=== PATIENT | female | born 1935 | race Caucasian/White ===

== ENCOUNTER 2016-12-26 02:29 | Inpatient (IN) | payer MEDICARE ==
[2016-12-26 02:56] LABS: #Lymphocytes 1.4 thou/uL (1.20-3.40); #Monocytes 0.8 thou/uL (0.11-0.59); #Neutrophils 4.6 thou/uL (1.40-6.50); %Basophils 0.4 % (0.0-1.0); %Eosinophils 0.4 % (0.0-10.0); %Lymphocytes 19.9 % (21.0-51.0); Hematocrit 39.9 % (36.0-47.0); Mean Platelet Volume 8.6 fL (7.4-10.4); Red Blood Cell (RBC) Count 4.09 mill/uL (4.20-5.40); White Blood Cell (WBC) Count 6.8 thou/uL (4.8-10.8)
[2016-12-26 03:11] LABS: ALT (SGPT) 10 U/L (8-55); AST (SGOT) 17 U/L (5-34); Alkaline Phosphatase 69 U/L (40-150); Anion Gap 12 mmol/L (10-20); BUN (Urea Nitrogen) 17 mg/dL (9.8-20.1); CK (CPK) 62 U/L (29-168); Calc. Creatinine Clearance 0 mL/min (70-130); Calcium 9.5 mg/dL (7.8-10.44); Carbon Dioxide 28 mmol/L (23-31); Chloride 92 mmol/L (98-107); Estimated GFR-MDRD 58; Globulin 4.1 g/dL (2.4-3.5); Lipase 13 U/L (8-78); Protein, Total 7.8 g/dL (6.0-8.3)
[2016-12-26 03:14] LABS: Troponin I 0.052 ng/mL (< 0.028)
[2016-12-26 03:15] LABS: PTT 28.3 SEC (22.9-36.1); Prothrombin Time 13.8 SEC (12.0-14.7)
[2016-12-26 05:11] VITALS: BMI 25.4
[2016-12-26 06:34] LABS: Troponin I 0.855 ng/mL (< 0.028)
[2016-12-26] MEDS ORDERED: Nitroglycerin 0.4 MG TAB (25 Tab Bottle) SL PRN (07:31)
[2016-12-26] MEDS ORDERED: Furosemide 20 MG TAB PO PRN (07:31)
[2016-12-26] MEDS ORDERED: Acetaminophen 325 MG TAB PO PRN (07:31)
[2016-12-26] MEDS ORDERED: Dextrose 50% Abboject 50 ML SYRINGE SLOW IVP PRN (07:34)
[2016-12-26] MEDS ORDERED: Dextrose 5% in Water 1,000 ML IV PRN (07:34)
[2016-12-26] MEDS: Calcium Carbonate + Vit D 1 TAB PO SCH ×2 (08:57→20:52)
[2016-12-26] MEDS: Ferrous Sulfate 325 MG TAB PO SCH ×2 (08:57→17:02)
[2016-12-26] MEDS: Carvedilol 25 MG TAB PO SCH ×3 (08:57→21:05)
[2016-12-26] MEDS: Oxybutynin Chloride 5 MG TAB PO SCH ×2 (08:58→20:54)
[2016-12-26] MEDS: Ezetimibe 10 MG TAB PO SCH (08:58)
--- NOTE | 2016-12-26 09:27 | RAD ---
CHEST 1 VIEW: HISTORY: Chest pain. COMPARISON: 07/15/16. FINDINGS: Cardiac silhouette is magnified and upper limits of normal in size. Lungs remain hyperinflated with chronic interstitial thickening. Mediastinum is midline with postoperative changes and a multilead left subclavian cardiac electronic device. No lobar consolidation or pneumothorax are apparent. C ardiac monitor leads overlie the chest. IMPRESSION: Chronic obstructive pulmonary disease and other chronic-type findings are stable. POS: [facility]
[2016-12-26 09:37] LABS: Troponin I 1.376 ng/mL (< 0.028)
[2016-12-26 10:00] LABS: Hemoglobin A1c 7.2 % (4.0-6.0)
--- NOTE | 2016-12-26 10:10 | HP ---
DATE OF ADMISSION: 12/26/2016 PRIMARY CARE PHYSICIAN: Dr. Neri Matthews. CHIEF COMPLAINT: Chest pain. HISTORY OF PRESENT ILLNESS: This is an 81-year-old female with past medical history of co ronary artery disease with coronary artery bypass surgeries and type 1 diabetes, who presents with c hest pain starting last night, located substernal and radiating to the left chest and arm. She daly es dizziness, nausea, and excessive sweating. She takes Plavix at home. She also reports that her glucose over the past several days has been measuring 200s up to 300. It is normally low 100s; pa beth. She takes Humulin 70/30 b.i.d. So far her troponins have increased from 0.052-0.855 which is positive. This morning, she denies chest pain and reports feeling better. ALLERGIES: No known drug allergies. MEDICATIONS: 1. Oxybutynin 5 mg p.o. b.i.d. 2. Plavix 75 mg p.o. daily. 3. Ranexa 500 mg p.o. daily. 4. Carvedilol 12.5 mg p.o. b.i.d. 5. Zetia 10 mg p.o. daily. 6. Lisinopril 5 mg, take 1/2 tablet p.o. daily. 7. Pravastatin 80 mg p.o. daily. 8. Isosorbide dinitrate 30 mg p.o. daily. 9. Humalog 75/25, take 6 units in the morning and 10 units in the evening. 10. Furosemide 20 mg p.o. daily. 11. Nitroglycerin 0.4 mg tablet sublingual p.r.n. chest pain. 12. Iron 325 mg p.o. daily. 13. Pantoprazole 40 mg p.o. daily. 14. Montelukast 10 mg p.o. at bedtime. PAST MEDICAL HISTORY: 1. Coronary artery disease status post CABG. 2. Type 1 diabetes. 3. Urinary incontinence. 4. GERD. PAST SURGICAL HISTORY: 1. CABG x2. 2. Cholecystectomy. 3. Back surgery. 4. Defibrillator placement. SOCIAL HISTORY: Denies tobacco, alcohol and drugs. FAMILY HISTORY: Heart disease, hypertension, and diabetes. REVIEW OF SYSTEMS: GENERAL: Denies fever, weight change, appetite change. HEENT: Denies headache , vision changes, sore throat, or dysphagia. SKIN: Denies rashes or lesions. CARDIOVASCULAR: Gill st pain, improved. Denies palpitations. RESPIRATORY: Denies shortness of breath and cough. GASTR OINTESTINAL: Denies nausea, vomiting, diarrhea, constipation, and abdominal pain. GENITOURINARY: Denies dysuria, hematuria, and discharge. MUSCULOSKELETAL: Denies joint pain and stiffness. NEURO LOGIC: Denies syncope and dizziness. PHYSICAL EXAMINATION: VITAL SIGNS: Temperature 98.0, pulse 72, respirations 18, oxygen saturation 95% on room air, and bl ood pressure 129/59. GENERAL: Alert and oriented x3 with no acute distress. SKIN: No rashes or lesions. HEENT: Normocephalic. Pupils are equally round and reactive to light. Extraocular muscles intact. HEART: Regular rate and rhythm, no murmurs. LUNGS: Clear to auscultation bilaterally. No wheezes. ABDOMEN: Nontender and nondistended. Bowel sounds heard throughout. MUSCULOSKELETAL: Normal strength and range of motion. NEUROLOGIC: Cranial nerves II-XII intact. Sensation normal. LABORATORY DATA AND X-RAY FINDINGS: 1. White blood cell count 6.8, hemoglobin 13.6, hematocrit 39.9, MCV 97.6, and platelets 146. 2. PT 13.8, INR 1.1, PTT 28.3. 3. Sodium 127, potassium 4.6, chloride 92, carbon dioxide 28, BUN 17, creatinine 0.92, glucose 245, calcium 9.5, total bilirubin 1.0. AST 17, ALT 10, alkaline phosphatase 69. Creatine kinase 62, CK -MB 2.3, troponin 0.052, 0.855, total protein 7.8, albumin 3.7, lipase 13. 3. Chest x-ray shows enlarged heart, sternotomy wires, defibrillator. No acute process. ASSESSMENT AND PLAN: 1. Chest pain with positive troponins. Consult Cardiology for evaluation. The patient has receive d aspirin. She received a dose of Plavix last night. She has no current chest pain. EKG showed a normal paced rhythm with a rate of 79. There is a [address] elevation in V3. 2. Type 1 diabetes. Glucose has been uncontrolled recently. We will continue her home dose of Hum alog 75/25 and initiate hyperglycemia protocol with Accu-Cheks and sliding scale insulin. 3. Urinary incontinence. Continue oxybutynin. 4. Gastroesophageal reflux disease. Continue pantoprazole.
[2016-12-26 13:09] LABS: Troponin I 1.734 ng/mL (< 0.028)
[2016-12-26] MEDS: Insulin NPH/Reg Insulin Hm 300 UNITS/3 ML VIAL SC SCH ×2 (13:12→20:53)
--- NOTE | 2016-12-26 15:15 | CON ---
CARDIOLOGY CONSULTATION DATE OF CONSULTATION: 12/26/2016 LOCATION: Room #235 PRIMARY CARE PHYSICIAN: Neri Matthews M.D. PRIMARY LIGHT ARMORED VEHICLE OFFICER: Keyonna Kevin M.D. REASON FOR CARDIOLOGY CONSULTATION: Chest pain, positive troponin level and history of CABG twice. HISTORY OF PRESENT ILLNESS: Ms. Gomez is a very pleasant 81-year-old female with a significant history of severe CAD with history of coronary artery bypass graft twice, previous positive troponin level and last cardiac catheterization in 2013, which were inoperable and medical treatment only, and chronic systolic heart failure with defibrillator placement. On 12/25, whole day, she was very tired, fatigue, and doze off every time when she was sitting on the chair or bed. Last night, she was started having pain in the precordial area, which was very similar when she has myocardial infarction. It was coming and going, but the patient reported that pain was increased when she was walking. In the middle of the night, she administrated 1 tablet of nitroglycerin. Her symptoms was improved. However, she still could feel some discomfort in her chest. Because of that reason, the patient's daughter called the EMS and the patient was transferred to [facility] Emergency Department for further cardiac study and treatment. At this time, the patient denies any chest pain, shortness of breath, dizziness, lightheadedness, nausea, numbness in the left extremity or any other cardiac symptoms. She went to bathroom today without any cardiac complaints. During the episode of chest pain last night, she denies any shortness of breath, dizziness, lightheadedness , diaphoresis, nausea, or any other complaints. She was in the hospital in 2016 with the same diagnosis of chest pain with unstable angina and positive troponin. The patient was discharged the next day with medical treatment. She underwent cardiac catheterization in 2013, which revealed severe three- vessel disease with ejection fraction of 35% and the medical treatment only due to the history of bypass twice. The patient's last echocardiogram was in 2014 with EF of 35% to 40%, akinesis of distal inferior wall and distal septum, mild mitral and tricuspid insufficiency and mild enlarged left atrium. She had a history of coronary artery bypass graft in 2007 and 2009. She has an AICD placement due to severe, chronic systolic heart failure. PAST MEDICAL HISTORY: 1. Coronary artery disease with several history of CABG. 2. Hypertension. 3. Hyperlipidemia. 4. GERD. 5. Diabetes type 2. 6. History of pulmonary embolism. 7. Ischemic colitis. 8. AICD placement. PAST SURGICAL HISTORY: 1. CABG in 2008 and 2009. 2. Right femoral fracture repair in 2015. 3. Cholecystectomy. FAMILY HISTORY: Significant history of diabetes in both maternal and paternal side and she has 4 children who all had history of diabetes. SOCIAL HISTORY: She is a . She has 4 children who have history of diabetes. She denies tobacco abuse, alcohol abuse or illicit drug abuse. REVIEW OF SYSTEMS: The following complete review of systems was negative, unless otherwise mentioned in the HPI or below. Constitutional: Weight loss or gain, sense of well being, ability to conduct usual activities, exercise tolerance. Skin: Rash, itching, change in hair growth or loss, nail change. Breasts: Lump tenderness, swelling, nipple discharge. Eyes: She wears glasses for reading, negative to vision change, double vision, tearing, blind spots, or pain. ENT: Headache, fatigue, or lightheadedness. Nose bleeding, nasal obstruction or discharge. She wears denture. Negative to gingival bleeding, neck stiffness, pain, tenderness, and mass in thyroid or other areas. Cardiovascular: Palpitations, syncope, dyspnea on exertion, orthopnea, nocturnal dyspnea, edema, cyanosis, heart murmur, varicosis, claudication. Respiratory: Shortness of breath, wheezing, stridor, cough, hemoptysis. Gastrointestinal: Poor appetite, dysphagia, indigestion, abdominal pain, heartburn, nausea, vomiting, jaundice, constipation, diarrhea, abnormal stool, recent change in the bowel habit. Genitourinary: Urgency, frequency, dysuria, nocturia, hematuria, polyuria, or oliguria. She wears pads for leakage. Musculoskeletal: Pain, swelling, redness, heat of muscle or joint, limitation of motion, muscular weakness, atrophy or cramps. Neurologic: Seizure, convulsion, paralysis, tremor, or incoordination. Psychiatric: Emotional problem, anxiety, depression, previous psychiatric care, unusual perception or hallucination. PHYSICAL EXAMINATION: VITAL SIGNS: Blood pressure 118/58, heart rate 70 with sinus rhythm, respiratory rate 16, temperature 98.5, O2 sat 95% with room air. GENERAL: Well-developed, well-nourished without any acute distress. HEENT: Head: Normocephalic, atraumatic. Eyes: Wears glasses. Extraocular muscle movements are intact. ENT: Oral and nasal mucosa are moist without lesion. NECK: No JVD. Neck is supple and normal range of motion. LUNGS: Clear to auscultation bilaterally. No wheezing, rales or rhonchi noted. CARDIOVASCULAR: Regular rate and rhythm, normal S1, S2. There are no S3 or S4. No significant murmur, hives, thrill, bruit or rub noted. There are 2+ pulses in bilateral dorsal pedis, posterior tibial and popliteal arteries. There is mild bruit on the right carotid arteries, but not in left side. No edema in her bilateral lower extremities. ABDOMEN: Soft and nontender or mass to palpate, nondistended. Bowel sounds are present. MUSCULOSKELETAL: Able to move all extremities without any difficulties. SKIN: Warm and dry. No skin rash, lesion or bruise noted. NEUROLOGIC: Alert, oriented x4, awake, normal affect and nonfocal. PSYCHIATRIC: Mood and affect are normal. EKG: A 12-lead EKG in the ER shows sinus rhythm, intermittent pacing with heart rate of [address] segment change. LABORATORY DATA: WBC 6.8, hemoglobin 13.6, hematocrit 39.9, platelet 146. INR is 1.1. Sodium 127, potassium 4.6, BUN 17, creatinine 0.92, glucose 352. Hemoglobin A1c was 7.2, AST 17, ALT 10, CK-MB 3.3. Troponin 0.052, 0.855 and 1.376, we are waiting for another troponin level at this moment. Chest x-ray revealed chronic obstructive pulmonary disease, but no acute coronary or pulmonary abnormality. ASSESSMENT AND PLAN: 1. Unstable angina with positive troponin. The patient denies any cardiac complaint at this moment, the history of coronary artery bypass graft twice, and the catheterization result in 2013, there are no plan to have further cardiac studies a this moment and continue medical treatment. 2. Hyponatremia. The patient's sodium level today was 127. We like to start fluid restriction for this patient and we would like to continue to monitor with daily sodium level check. 3. Hypertension, stable at this moment with the current medication. 4. Chronic systolic heart failure with automatic implantable cardioverter- defibrillator placement. The patient's condition is stable with current medication. We like to continue Lasix 20 mg p.o. daily as needed. 5. Diabetes type 2. She is on before meals and at bedtime blood glucose check with sliding scale insulin ordered, which is managed by primary care doctor. 6. Hyperlipidemia. The patient is on pravastatin 20 mg once a day. 7. Esophageal reflux. She is on Plavix 40 mg once a day. Thank you very much for allowing Cardiology Service to participate in care of the patient. We will follow along with the patient's care team and make further recommendations as appropriate. TOYA
[2016-12-26] MEDS: HumaLOG 300 UNITS/3 ML VIAL SC PRN (17:16)
[2016-12-26] MEDS: Atorvastatin Calcium 20 MG TAB PO SCH (20:52)
[2016-12-26] MEDS: Clopidogrel Bisulfate 75 MG TAB PO SCH (20:53)
[2016-12-26] MEDS: Montelukast Sodium 10 mg Tablet PO SCH (20:54)
[2016-12-26] MEDS: Lisinopril 2.5 MG TAB PO SCH (20:54)
--- NOTE | 2016-12-27 01:20 | CON ---
ADDENDUM DATE OF ADMISSION: 12/26/2016 DATE OF CONSULTATION: 12/26/2016 INDICATION FOR CONSULTATION: An 81-year-old female with chest pain and known coronary artery diseas e who is status post bypass surgery and also she has cardiomyopathy, has undergone AICD implant. Dez cuadra has a history also of congestive heart failure. She was in the hospital back in June with very s imilar symptoms of chest pain except for a non-ST segment elevation myocardial infarction. She has been deemed in the past not to be a candidate for further intervention or redo bypass surgery. She was at home yesterday when she noted she started having some chest discomfort. Yesterday evening, s he felt like this was her typical chest pain or angina and then she presented to the emergency room and was admitted. Her enzymes are positive for non-ST segment elevation myocardial infarction. At this time, she is pain free. Her symptoms have resolved and she is feeling much better. Her last c ardiac catheterization, I believe it was in 2009, at which time she had a patent saphenous vein ricky t to the obtuse marginal branch of left circumflex to the right coronary artery and she had a PICKARD t o the, I believe, left anterior descending artery. She states at that time was noted to have diffus e disease. She has had an echocardiogram in the office, the last one I see was from 2014 with an ej ection fraction of 35% to 40%. She has had no problems with the AICD. She has had no discharges an d appears it was found to be stable. I reviewed her medications. She is not taking aspirin. She s aid she did in the past and occasionally takes an aspirin. We will place her back on her aspirin. Also she is taking Ranexa 500 mg once a day. We will try to increase it up to twice a day. She did state that she had been on Coreg in the past and when the dose was increased, she became hypotensiv e and was unable to take a larger dose of what she is presently on. She has a significant history a lso for other problems associated with her coronary artery disease. Her EKG showed atrial pacing an d ventricular sensing. She did have some T-wave inversions with a strain-type pattern, but this cer tainly could indicate also ischemia inferior lateral changes. She has evidence of a possible old in ferior myocardial infarction. At this time, she is stable as noted and we will try to continue to a djust her medications. For her past medical history, social history, review of systems as well as physical examination, ple ase refer to the notes dictated by the nurse practitioner. I have agreed with her assessment and pl an and we have discussed the patient. From my perspective; PHYSICAL EXAMINATION: GENERAL: This is an elderly, fragile, very pleasant female that I have known from the past by flores harris of her . VITAL SIGNS: Relatively stable at this time. Blood pressure is 119/56. She is afebrile. Heart ra te is 70 and shows a paced rhythm. Respiratory rate is 16. HEENT: Shows the head to be normocephalic and atraumatic. Carotid pulses are present. CHEST: Clear to auscultation without rales, rhonchi or wheezing. CARDIOVASCULAR: Exam reveals a regular rate and rhythm. She has a soft systolic murmur at the uppe r sternal border and also at the apex. She has a well-healed surgical incision over her AICD in the left infraclavicular area. ABDOMEN: Unremarkable. EXTREMITIES: Showed no clubbing, cyanosis or edema. Pedal pulses are decreased. NEUROLOGIC: She appears to be fully intact for someone of her age. IMPRESSION: As above. This is an elderly female with a severe three-vessel coronary artery disease . She is not a candidate for further intervention or surgical procedures. I would continue to zenon t her medically. We would just need to adjust her medications. For the other assessment and plan, please refer to the notes already dictated. I would agree with this.
[2016-12-27] MEDS: Ferrous Sulfate 325 MG TAB PO SCH ×2 (08:30→18:25)
[2016-12-27] MEDS: Carvedilol 25 MG TAB PO SCH ×2 (08:31→20:07)
[2016-12-27] MEDS: Calcium Carbonate + Vit D 1 TAB PO SCH ×2 (08:31→21:06)
[2016-12-27] MEDS: Oxybutynin Chloride 5 MG TAB PO SCH ×2 (08:31→21:08)
[2016-12-27] MEDS: Ezetimibe 10 MG TAB PO SCH (08:31)
[2016-12-27] MEDS: Insulin NPH/Reg Insulin Hm 300 UNITS/3 ML VIAL SC SCH ×2 (08:32→21:07)
--- NOTE | 2016-12-27 13:10 | PRG ---
DATE OF SERVICE: 12/27/2016 Ms. Gomez is awake and alert. She has had no further chest pain. She states she is feeling back t o her normal state. PHYSICAL EXAMINATION: VITAL SIGNS: BP 133/63, temperature 98.3. LUNGS: Clear. HEART: Reveals no murmur. ABDOMEN: Soft, nontender, bowel sounds are active. No hepatosplenomegaly is noted. LABORATORY DATA: Her last troponin was still elevated at 1.734. IMPRESSION: Atherosclerotic coronary artery disease with elevated troponin, probably has suffered a small myocardial infarction. Her atherosclerotic coronary disease is basically inoperable and nonp rocedural. PLAN: 1. The patient will continue on current medications. 2. Await input from Cardiology. 3. She says she is comfortable and doing well. She possibly could go home by tomorrow.
[2016-12-27] MEDS: HumaLOG 300 UNITS/3 ML VIAL SC PRN (13:31)
--- NOTE | 2016-12-27 13:37 | PRG ---
DATE OF SERVICE: 12/27/2016 Ms. Gomez is doing well today, awake and alert. No complaints. She says she is not having any chest pain or pressure. PHYSICAL EXAMINATION: VITAL SIGNS: Blood pressure 133/63, pulse 80, it is regular. LUNGS: Clear. CARDIAC: Normal S1, S2. ASSESSMENT: 1. Status post non-ST elevation myocardial infarction. 2. Previous pacemaker, atrial paced ventricular sensed. 3. Coronary artery disease. No further intervention indicated or appropriate. PLAN: Continue current medical regimen, likely discharge home tomorrow.
[2016-12-27] MEDS: Clopidogrel Bisulfate 75 MG TAB PO SCH (21:06)
[2016-12-27] MEDS: Atorvastatin Calcium 20 MG TAB PO SCH (21:06)
[2016-12-27] MEDS: Lisinopril 2.5 MG TAB PO SCH (21:08)
[2016-12-27] MEDS: Montelukast Sodium 10 mg Tablet PO SCH (21:08)
[2016-12-27] MEDS ORDERED: Nitroglycerin 0.4 MG TAB (25 Tab Bottle) ONE (22:20)
[2016-12-28 07:56] VITALS: TEMP 98
[2016-12-28] MEDS: Insulin NPH/Reg Insulin Hm 300 UNITS/3 ML VIAL SC SCH (07:56)
--- NOTE | 2016-12-28 08:06 | PRG ---
DATE OF SERVICE: 12/28/2016 Ms. Gomez is feeling well. She reports no chest pain, shortness of breath, no symptoms at this kacy e. PHYSICAL EXAMINATION: VITAL SIGNS: BP 146/69, temperature 98.7, O2 sats 96%. LUNGS: Clear. HEART: Reveals no murmur. Regular rate and rhythm. ABDOMEN: Soft, nontender, bowel sounds are active. LABORATORY: Her blood sugars are adequately controlled. IMPRESSION: 1. Non-ST segment myocardial infarction. 2. Previous history of atherosclerotic coronary artery disease. 3. Previous history of type 1 diabetes mellitus. PLAN: The patient has been stable for 36 hours since her admission to the hospital. There is no in tervention planned for Cardiology. She will be discharged home on her current medications. Follow up with me in approximately 3-4 weeks.
[2016-12-28] MEDS: Calcium Carbonate + Vit D 1 TAB PO SCH (08:11)
[2016-12-28] MEDS: Ezetimibe 10 MG TAB PO SCH (08:11)
[2016-12-28] MEDS: Oxybutynin Chloride 5 MG TAB PO SCH (08:11)
[2016-12-28] MEDS: Ferrous Sulfate 325 MG TAB PO SCH (08:12)
[2016-12-28] MEDS: Carvedilol 25 MG TAB PO SCH (08:14)
--- NOTE | 2016-12-28 08:39 | DIS ---
DATE OF ADMISSION: 12/26/2016 DATE OF DISCHARGE: 12/28/2016 DISCHARGE DIAGNOSES: 1. Non-ST segment myocardial infarction. 2. History of atherosclerotic coronary artery disease. 3. History of type 1 diabetes mellitus. ADMITTING PHYSICIAN: Dr. Neri Matthews. CONSULTING PHYSICIAN: Dr. Kevin. HOSPITAL SUMMARY: This is an 81-year-old female, who presented to the emergency room complaining of chest pain. She was found to have mildly elevated troponins consistent with non-ST segment SD. [facility] was placed in the hospital. She has had a previous history of atherosclerotic coronary artery dis ease that is inoperable/nonprocedural. She was followed throughout her hospital, remained comfortab le. All of her chest pain eventually resolved by 12/28/2016. She was doing well with no provoked c hest pain. It was thought she could be discharged home on her home medicines; there is no change in her home medicines. HOME MEDICATIONS: Home medicines were acetaminophen every 6 hours, calcium 1 b.i.d., nitroglycerin spray, insulin 6 units q.a.m. and 2 units q.p.m., Lasix 20 mg daily, pravastatin 80 mg at bedtime, P rotonix 40 mg daily, Zestril 2.5 mg at bedtime, Ranexa 500 mg p.o. q.p.m., montelukast 10 mg daily, Plavix 75 mg daily, oxybutynin 5 mg b.i.d., isosorbide 30 mg p.o. daily, ferrous sulfate 325 b.i.d., carvedilol 12.5 mg b.i.d., Zetia 10 mg daily, aspirin 81 mg daily, one multivitamin daily. DISCHARGE PLAN: She will see me in follow up in approximately four weeks.
--- NOTE | 2016-12-28 09:29 | PRG ---
DATE OF SERVICE: 12/28/2016 SUBJECTIVE: Ms. Gomez feels well. No chest pain or pressure. Overall, feels well. OBJECTIVE: VITAL SIGNS: Blood pressure 154/69 and pulse 70. LUNGS: Clear. CARDIAC: Normal S1 and S2. ABDOMEN: Soft, nontender. EXTREMITIES: There is no edema. PERTINENT LABORATORY: Her sodium is 127. ASSESSMENT: 1. Status post non-ST elevation myocardial infarction. 2. History of hyponatremia, only taken diuretics if needed, not on a routine basis. PLAN: She is to go home on the same medicine she came in on. Take Lasix only if needed for swellin g.
[2016-12-28 15:47] VITALS: BP 146/70
== END 2016-12-28 11:59 | disposition home or self-care (01) | DRG 281 ==
LOC: ERS 02:29 → OBSVTOIN 03:00 → 2SW 03:00 → 2NO 14:52
PROVIDERS: ADMIT Family Medicine; ATTEND Family Medicine
DX: I21.4 Non-ST elevation (NSTEMI) myocardial infarction (principal); E87.1 Hypo-osmolality and hyponatremia; I11.0 Hypertensive heart disease with heart failure; I50.22 Chronic systolic (congestive) heart failure; E10.9 Type 1 diabetes mellitus without complications; Z95.1 Presence of aortocoronary bypass graft; Z95.0 Presence of cardiac pacemaker; I25.10 Atherosclerotic heart disease of native coronary artery without angina pectoris; E78.5 Hyperlipidemia, unspecified; K21.9 Gastro-esophageal reflux disease without esophagitis; Z86.711 Personal history of pulmonary embolism
CPT/HCPCS: 36415; 36416; 71010; 80053; 82553; 83036; 83690; 84484; 85025; 85610; 85730; 86850; 86900; 86901; 93005; 93798; 94760

== ENCOUNTER 2017-01-14 20:51 | Observation (INO) | payer MEDICARE ==
[~2017-01-14 20:51] MED LIST: ISOVUE-370 76%-LOCM 1 ML ONE
[2017-01-14 22:42] LABS: #Basophils 0.1 thou/uL (0.0-0.2); #Eosinphils 0.1 thou/uL (0.0-0.7); #Lymphocytes 1.3 thou/uL (1.20-3.40); #Monocytes 0.6 thou/uL (0.11-0.59); #Neutrophils 3.4 thou/uL (1.40-6.50); %Eosinophils 1.5 % (0.0-10.0); %Lymphocytes 23.6 % (21.0-51.0); %Monocytes 11.3 % (0.0-10.0); Hematocrit 37.5 % (36.0-47.0); Mean Platelet Volume 8.5 fL (7.4-10.4); Red Blood Cell (RBC) Count 3.87 mill/uL (4.20-5.40); White Blood Cell (WBC) Count 5.4 thou/uL (4.8-10.8)
--- NOTE | 2017-01-14 22:48 | RAD ---
UPRIGHT PORTABLE CHEST ONE VIEW 01/14/17 HISTORY: 81-year-old female with chest pain. COMPARISON: 12/26/16 FINDINGS: Postop midline sternotomy. Left ICD. Monitor leads overlie the chest. Bilateral vascular congestion and interstitial changes evidence for interstitial edema with small pleural effusions. Appearance is stable from the 12/26/16 study. These changes are however, new when compared to a 12/28/15 study. No confluent pneumonia. IMPRESSION: Linear and interstitial changes bilaterally with vascular congestion and small pleural effusion, lorraine dence for minimal interstitial edema and possibly minimal congestive heart failure. Depending upon c oncern, continued short term followup for clearing or stability. POS: [facility]
[2017-01-14 23:00] LABS: ALT (SGPT) 13 U/L (8-55); AST (SGOT) 15 U/L (5-34); Alkaline Phosphatase 78 U/L (40-150); Anion Gap 12 mmol/L (10-20); BUN (Urea Nitrogen) 19 mg/dL (9.8-20.1); Bilirubin, Total 0.4 mg/dL (0.2-1.2); Calc. Creatinine Clearance 0 mL/min (70-130); Calcium 8.6 mg/dL (7.8-10.44); Carbon Dioxide 24 mmol/L (23-31); Chloride 100 mmol/L (98-107); Estimated GFR-MDRD 60; Globulin 3.5 g/dL (2.4-3.5); Protein, Total 6.7 g/dL (6.0-8.3)
[2017-01-14 23:04] LABS: Troponin I 0.081 ng/mL (< 0.028)
[2017-01-15] MEDS ORDERED: Nitroglycerin 2% Ointment 1 INCH/1 GM Packet ONE (00:25)
[2017-01-15 01:15] LABS: Troponin I 0.124 ng/mL (< 0.028)
[2017-01-15] MEDS ORDERED: Ondansetron HCl/PF 4 MG/2 ML Vial IVP PRN (04:12)
[2017-01-15] MEDS ORDERED: Ondansetron ODT 4 MG TAB SL PRN (04:12)
[2017-01-15] MEDS ORDERED: Acetaminophen 325 MG TAB PO PRN ×2 (04:12→10:00)
[2017-01-15 05:12] VITALS: BMI 25.0
[2017-01-15 05:36] LABS: Troponin I 0.204 ng/mL (< 0.028)
[2017-01-15] MEDS ORDERED: Nitroglycerin 2% Ointment 1 INCH/1 GM Packet TOP SCH (06:00)
--- NOTE | 2017-01-15 08:14 | CT ---
PRELIMINARY REPORT/[facility]/EMERGENCY AFTER HOURS PROCEDURE: EXAM: CT Angiography Chest With Intravenous Contrast CLINICAL HISTORY: Left sided chest pain. TECHNIQUE: Axial computed tomographic angiography images of the chest with intravenous contrast using pulmonary embolism protocol. All CT scans at this facility use one or more dose reduction techniques, viz.: a utomated exposure control; ma/kV adjustment per patient size (including targeted exams where dose is matched to indication; i.e. head); or iterative reconstruction technique. CONTRAST: 96 mL of [id number] administered intravenously. COMPARISON: No relevant prior studies available. FINDINGS: Pulmonary arteries: No acute findings. No pulmonary embolism. Aorta: There are atheromatous calcifications of the aorta without visible aneurysm. Lungs: Extensive, bilateral ground glass air space opacities. Pleural space: Trace bilateral effusions. Nonspecific nodular high density pleural foci anteriorly o n the right. No pneumothorax. Heart: No cardiomegaly. No significant pericardial effusion. There are atheromatous calcifications o f the aorta and coronary vasculature. Bones/joints: Chronic degenerative spinal changes without acute fracture or dislocation. There are m edian sternotomy changes. Soft tissues: No acute findings. Lymph nodes: No acute findings. No enlarged lymph nodes. Upper abdomen: IVC filter noted. IMPRESSION: No pulmonary embolism. Extensive, bilateral ground glass air space opacities consistent with infiltrates vs edema. Cardiomegaly and atheromatous disease. Pleural effusions. Thank you for allowing us to participate in the care of your patient. Dictated and Authenticated by: Jose Islas MD 01/15/2017 12:35 AM Central Time ([place] \T\ [place]) FINAL REPORT CT ANGIOGRAM OF CHEST: Date: 01/14/17 HISTORY: Previous pulmonary artery emboli. Left-sided chest pain. COMPARISON: 04/16/10. TECHNIQUE: CT angiogram of the chest is performed in the axial plane. Coronal and sagittal three-dimensional re formatted images are submitted for interpretation. FINDINGS/IMPRESSION: This report is in agreement with the preliminary report by Har[facility]. No evidence of pulmonary artery emb olism to the level of the segmental arteries. There are extensive bilateral ground-glass opacities w hich may be due to edema or infiltrate. Bilateral pleural effusions are noted. Atherosclerotic disea se is identified. Stable pleural based opacity in the anterior right hemithorax. POS: [facility]
[2017-01-15] MEDS ORDERED: Furosemide 20 MG TAB PO PRN (10:00)
[2017-01-15] MEDS ORDERED: Nitroglycerin 0.4 MG TAB (25 Tab Bottle) SL PRN (10:00)
[2017-01-15] MEDS ORDERED: Dextrose 5% in Water 1,000 ML IV PRN (10:01)
[2017-01-15] MEDS ORDERED: Insulin Regular 300 UNITS/3 ML VIAL SC PRN (10:01)
[2017-01-15] MEDS ORDERED: Dextrose 50% Abboject 50 ML SYRINGE SLOW IVP PRN (10:01)
--- NOTE | 2017-01-15 13:27 | HP ---
DATE OF ADMISSION: 01/15/2017 TIME: 10 a.m. HISTORY OF PRESENT ILLNESS: This is an 81-year-old white female with coronary artery disease, statu s post bypass who presents with chest pain. The patient has a long history of diabetes since the ag e of 31. She has no tobacco or alcohol use. She has had bypass surgery in 2007 and 2009. She also has been admitted several times this year for chest pain. Her last admission was on 12/26/2016 and she presented with an NSTEMI. However, she is no longer a surgical candidate and she is presently being managed medically. She is followed by Dr. Kevin. She was doing well until yesterday, the da y of admission and she was running several errands with her daughter. She was going to [employer] and she was exerting herself. She returned to home and started developing chest pain. She had several episodes that afternoon following presented to the emergency room for further evaluation. She was admitted and her troponin was noted to be elevated. A CT angio was found to be unremarkable . Her chest x-ray showed possible minimal evidence of congestive heart failure. She is being admit tana for further evaluation. PAST MEDICAL HISTORY: Diabetes type 2, coronary artery disease, hypertension, hyperlipidemia, GERD, history of ischemic colitis, AICD placement. PAST SURGICAL HISTORY: Include back surgery x4 by Dr. Escobar, triple bypass x2 2007 and 2009, vinicio cystectomy, laser eye surgery, and AICD placement. FAMILY HISTORY: Father with heart disease, hypertension, and diabetes. Mother with heart disease a nd diabetes. Siblings all with heart disease, hypertension, and diabetes. Her 4 children all have diabetes including her children as well. SOCIAL HISTORY: She does not have any tobacco or alcohol history. She is . She has 4 child renetta. MEDICATIONS: Calcium daily, multivitamin daily, oxybutynin 5 mg daily, Plavix 75 mg daily, ranolazi ne ER 500 daily, Coreg 12.5 b.i.d., Zetia 10 daily, lisinopril 2.5 daily, Lipitor 80 daily, isosorbi de 30 daily, insulin Lispro 6 q.a.m., 10 q.p.m., Lasix 20 daily, nitroglycerin 0.4 sublingual p.r.n. , iron 325 daily, and Singulair 10 mEq daily. ALLERGIES: None. REVIEW OF SYSTEMS: As above. PHYSICAL EXAMINATION: VITAL SIGNS: Temperature 97.7, pulse 70, respirations 16, pulse ox 100, and blood pressure 142/67. GENERAL: The patient in no acute distress at this time. No complaints of chest pain. HEENT: Clear. HEART: Regular rate and rhythm. LUNGS: Clear. ABDOMEN: Soft and nontender. EXTREMITIES: With no edema. LABORATORY DATA: White count 5.4, H\T\H 12 and 37, and platelets of 156. D-dimer 0.70. Sodium 132 , potassium 4.2, creatinine 0.9, blood sugar of 380, 259, and 220. Troponin I 0.081, 0.124, 0.204. A CT angio of the chest negative. Chest x-ray, possible mild CHF. ASSESSMENT: 1. Chest pain, rule out myocardial infarction with elevated troponin consistent with non-ST elevati on myocardial infarction. 2. Coronary artery disease, medically managed, not a surgical candidate with recent multiple admiss ions. 3. Chronic systolic congestive heart failure. 4. Status post coronary bypass grafting x2. 5. Diabetes. 6. Automated implantable cardioverter-defibrillator placement. 7. Gastroesophageal reflux disease. 8. Hypertension. 9. Hyperlipidemia. 10. History of ischemic colitis. PLAN: 1. Discussed with Dr. Kevin. We will continue medical management. 2. Consider increasing isosorbide. 3. Continue with diet, exercise and weight loss. 4. Continue all medications.
--- NOTE | 2017-01-15 17:51 | PRG ---
DATE OF SERVICE: 01/15/2017 SUBJECTIVE: Ms. Gomez came back for observation after another episode of severe angina. She is fe eling okay now. OBJECTIVE: VITAL SIGNS: Her blood pressure 139/63 and pulse 72, regular. LUNGS: Clear. CARDIAC: Normal S1, normal S2. ABDOMEN: Soft and nontender. EXTREMITIES: No edema. LABORATORY DATA: Troponin level 0.204. I reviewed the medicines; she is on the appropriate medicin es. ASSESSMENT: Recurrent angina, on bypass x2. Previous catheterization indicated that there would no t be any other percutaneous options, but I will review those. PLAN: We will go ahead and give her some enoxaparin while she is here, probably will be released ho me tomorrow. Does not look like there is much else feasible to do from an interventional standpoint , but I will review those images and the cath done several years ago.
[2017-01-15] MEDS: Calcium Carbonate + Vit D 1 TAB PO SCH (20:06)
[2017-01-15] MEDS: Ferrous Sulfate 325 MG TAB PO SCH (20:07)
[2017-01-15] MEDS: Carvedilol 25 MG TAB PO SCH (20:07)
[2017-01-15] MEDS: Oxybutynin 5 MG TAB PO SCH (20:07)
[2017-01-15] MEDS: Enoxaparin Sodium 40 MG/0.4 ML SYRINGE SC SCH (20:11)
[2017-01-15] MEDS ORDERED: INSULIN LISPRO PROTAMINE SC SCH (21:00)
[2017-01-15] MEDS ORDERED: Lisinopril 2.5 MG TAB PO SCH (21:00)
[2017-01-15] MEDS ORDERED: Non-Formulary Item 1 EACH (Clopidogrel Bisulfate [Clopidogrel] 75 MG) PO SCH (21:00)
[2017-01-15] MEDS ORDERED: Insulin NPH/Reg Insulin Hm 300 UNITS/3 ML VIAL SC SCH (21:00)
[2017-01-15] MEDS ORDERED: Non-Formulary Item 1 EACH (Pravastatin Sodium [Pravastatin Sodium] 80 MG) PO SCH (21:00)
[2017-01-15] MEDS ORDERED: INSULIN LISPRO SC SCH (21:00)
[2017-01-15] MEDS ORDERED: Atorvastatin Calcium 20 MG TAB PO SCH (21:00)
[2017-01-16 04:52] VITALS: TEMP 97.9
[2017-01-16] MEDS ORDERED: INSULIN LISPRO PROTAMINE SC SCH (09:00)
[2017-01-16] MEDS ORDERED: Multivit, Therapeutic 1 TAB PO SCH (09:00)
[2017-01-16] MEDS ORDERED: Vit A,C & E/Lutein/Minerals Tablet PO SCH (09:00)
[2017-01-16] MEDS ORDERED: Clopidogrel Bisulfate 75 MG TAB PO SCH (09:00)
[2017-01-16] MEDS ORDERED: Insulin NPH/Reg Insulin Hm 300 UNITS/3 ML VIAL SC SCH (09:00)
[2017-01-16] MEDS ORDERED: INSULIN LISPRO SC SCH (09:00)
[2017-01-16] MEDS ORDERED: Ezetimibe 10 MG TAB PO SCH (09:00)
[2017-01-16] MEDS ORDERED: Aspirin 325 MG TAB PO SCH (09:00)
[2017-01-16] MEDS: Carvedilol 25 MG TAB PO SCH (09:52)
[2017-01-16] MEDS: Ferrous Sulfate 325 MG TAB PO SCH (09:54)
[2017-01-16] MEDS: Oxybutynin 5 MG TAB PO SCH (09:54)
[2017-01-16] MEDS: Calcium Carbonate + Vit D 1 TAB PO SCH (09:55)
[2017-01-16] MEDS: Enoxaparin Sodium 40 MG/0.4 ML SYRINGE SC SCH (09:56)
[2017-01-16 12:01] VITALS: BP 156/72
--- NOTE | 2017-01-16 15:46 | DIS ---
DATE OF ADMISSION: 01/15/2017 DATE OF DISCHARGE: 01/16/2017 DISCHARGE DIAGNOSES: 1. Chest pain. 2. Unstable angina. 3. Chronic systolic congestive heart failure. 4. Status post coronary artery bypass grafting x2. 5. Diabetes. 6. Automatic implantable cardioverter defibrillator. 7. Reflux. 8. Hypertension. 9. Hyperlipidemia. 10. History of ischemic colitis. CONSULTANTS: Dr. Kevin. DISCHARGE MEDICATIONS: Calcium daily, vitamins daily, oxybutynin 5 daily, Plavix 75 daily, ranolazi ne ER 500 mg daily, Coreg 12.5 b.i.d., Zetia 10 daily, lisinopril 2.5 daily, pravastatin 80 daily, i sosorbide 30 daily, insulin lispro 6 a.m. and 10 p.m., Lasix 20 daily, nitroglycerin p.r.n., Singula ir 10 daily, iron 325 daily. BRIEF HISTORY: This 81-year-old white female with coronary artery disease, status post bypass graft ing x2. The patient presents with chest pain. She has no tobacco or alcohol history. She has a [facility] of diabetes. She is status post bypass in 2007 and 2009. She has been admitted multiple times for chest pain. Her last admit was 12/26/2016 with an NSTEMI. She is no longer a surgical c andidate per Dr. Kevin. She is just to be managed medically. She was at [facility] the day of admiss ion and was exerting herself somewhat and developed chest pain. She then presented to the ER for ev aluation. HOSPITAL COURSE: Cardiac enzymes were performed. The troponin 1 levels did rise from 0.081 to 0.[address] Kevin was consulted. An echo revealed a 20%-25% ejection fraction. She has remai olena chest pain free for the past 24 hours. She will be managed medically. She will follow up with Dr. Kevin and Dr. Neri Matthews as directed. CT angio of the chest was negative. Chest x-ray was benign, mild pulmonary congestion.
[2017-01-16] MEDS ORDERED: Carvedilol 6.25 MG TAB PO SCH (21:00)
== END 2017-01-16 14:51 | disposition home or self-care (01) ==
LOC: ERS 20:51 → 2SW 01-15 00:45
PROVIDERS: ADMIT Family Medicine; ATTEND Family Medicine
DX: R07.9 Chest pain, unspecified (principal); I11.0 Hypertensive heart disease with heart failure; I50.22 Chronic systolic (congestive) heart failure; E11.9 Type 2 diabetes mellitus without complications; K21.9 Gastro-esophageal reflux disease without esophagitis; E78.5 Hyperlipidemia, unspecified; I25.110 Atherosclerotic heart disease of native coronary artery with unstable angina pectoris; I25.2 Old myocardial infarction; R09.89 Other specified symptoms and signs involving the circulatory and respiratory systems; Z79.02 Long term (current) use of antithrombotics/antiplatelets; Z79.82 Long term (current) use of aspirin; Z79.4 Long term (current) use of insulin; Z79.899 Other long term (current) drug therapy; Z95.1 Presence of aortocoronary bypass graft; Z95.810 Presence of automatic (implantable) cardiac defibrillator; Z90.49 Acquired absence of other specified parts of digestive tract; Z98.890 Other specified postprocedural states; Z87.19 Personal history of other diseases of the digestive system; Z82.49 Family history of ischemic heart disease and other diseases of the circulatory system
CPT/HCPCS: 71010; 71275; 80053; 82553 ×2; 82962 ×3; 84484 ×3; 85025; 85379; 93005 ×2; 93306; 94760; 96372 ×2; 99285; G0378; 36415; 36416; J1650; J1815

== ENCOUNTER 2017-07-31 02:59 | Inpatient (IN) | payer MEDICARE ==
[2017-07-31] MEDS ORDERED: Nitroglycerin 2% Ointment 1 INCH/1 GM Packet ONE (03:22)
[2017-07-31 03:30] LABS: #Eosinphils 0.1 thou/uL (0.0-0.7); #Lymphocytes 1.5 thou/uL (1.20-3.40); #Monocytes 0.6 thou/uL (0.11-0.59); #Neutrophils 2.9 thou/uL (1.40-6.50); %Basophils 0.8 % (0.0-1.0); %Lymphocytes 28.9 % (21.0-51.0); %Monocytes 12.3 % (0.0-10.0); Hemoglobin 14.3 g/dL (12.0-16.0); Mean Corpuscular HGB CONC 34.8 g/dL (32.0-36.0); Mean Corpuscular Hemoglobin 33.6 pg (27.0-31.0); Mean Corpuscular Volume 96.5 fl (81.0-99.0); Mean Platelet Volume 8.2 fL (7.4-10.4); Platelet Count 164 thou/uL (130-400); Red Blood Cell (RBC) Count 4.26 mill/uL (4.20-5.40); White Blood Cell (WBC) Count 5.1 thou/uL (4.8-10.8)
[2017-07-31 03:37] LABS: PTT 29.1 SEC (22.9-36.1); Prothrombin Time 13.6 SEC (12.0-14.7)
[2017-07-31 03:39] LABS: D-Dimer Test 0.67 *mcg/mL (0.27-0.43)
[2017-07-31 03:43] LABS: ALT (SGPT) 17 U/L (8-55); AST (SGOT) 20 U/L (5-34); Albumin 3.8 g/dL (3.4-4.8); Alkaline Phosphatase 100 U/L (40-150); Anion Gap 9 mmol/L (10-20); BUN (Urea Nitrogen) 16 mg/dL (9.8-20.1); Bilirubin, Total 0.6 mg/dL (0.2-1.2); CK (CPK) 80 U/L (29-168); Calc. Creatinine Clearance 0 mL/min (70-130); Calcium 9.3 mg/dL (7.8-10.44); Carbon Dioxide 29 mmol/L (23-31); Chloride 97 mmol/L (98-107); Estimated GFR-MDRD 48; Globulin 3.9 g/dL (2.4-3.5); Glucose 367 mg/dL (83-110); Magnesium 1.8 mg/dL (1.6-2.6); Potassium 4.8 mmol/L (3.5-5.1); Protein, Total 7.7 g/dL (6.0-8.3); Sodium 130 mmol/L (136-145)
[2017-07-31 04:16] LABS: CKMB 2.6 ng/mL (0-6.6); Troponin I 0.017 ng/mL (< 0.028)
[2017-07-31 06:48] LABS: Troponin I 0.568 ng/mL (< 0.028)
[2017-07-31] MEDS ORDERED: Morphine 4 MG/ML VIAL SLOW IVP PRN (08:08)
[2017-07-31] MEDS ORDERED: Nitroglycerin 4.9 GM Bottle SL PRN (08:08)
[2017-07-31] MEDS ORDERED: Acetaminophen 325 MG TAB PO PRN (08:09)
[2017-07-31] MEDS ORDERED: Dextrose 50% Abboject 50 ML SYRINGE SLOW IVP PRN (08:14)
[2017-07-31] MEDS ORDERED: Dextrose 5% in Water 1,000 ML IV PRN (08:14)
[2017-07-31] MEDS ORDERED: Famotidine 20 MG TAB PO PRN (08:15)
[2017-07-31] MEDS ORDERED: Labetalol HCl 100 MG/20 ML VIAL SLOW IVP PRN (08:15)
[2017-07-31] MEDS ORDERED: Docusate 100 MG CAP PO PRN (08:15)
[2017-07-31] MEDS ORDERED: Benzonatate 100 MG CAP PO PRN (08:15)
[2017-07-31] MEDS ORDERED: Promethazine 25 MG TAB PO PRN (08:15)
[2017-07-31] MEDS ORDERED: Clopidogrel Bisulfate 300 MG TAB PO SCH (08:30)
[2017-07-31] MEDS ORDERED: Insulin Detemir 100 UNITS/ML 20 UNITS in Pre-Filled Syringe 1 EACH SC SCH (09:00)
[2017-07-31 09:50] LABS: Troponin I 1.013 ng/mL (< 0.028)
[2017-07-31] MEDS ORDERED: Enoxaparin Sodium 60 MG/0.6 ML SYRINGE ONE (10:13)
--- NOTE | 2017-07-31 11:18 | RAD ---
CHEST 1 VIEW: [place] 01/14/17. HISTORY: Pain. FINDINGS: Stable left-sided defibrillator. There are sternotomy wires. Normal cardiac silhouette. The pulmon edelmira vessels are within normal limits. There are chronic interstitial changes. Stable blunting of th e right costophrenic angle. No pneumothorax. Stable postsurgical changes involving the lumbar spine , incompletely evaluated. IMPRESSION: Chronic changes of the lung parenchyma. No acute cardiopulmonary process. POS: [facility]
--- NOTE | 2017-07-31 13:59 | HP ---
DATE OF ADMISSION: 07/31/2017 PRIMARY CARE PHYSICIAN: Dr. Neri Matthews. CHIEF COMPLAINT: Chest pain. HISTORY OF PRESENT ILLNESS: The patient reported substernal border chest pain with shortness of velvet th. She has a known longstanding cardiac history with multiple CABGs, coronary artery disease with a ngina at baseline. Patient states this a.m. her chest pain started early in the a.m. where she has e beth experienced, but has resolved quickly in the emergency department following nitroglycerin. The p atient denies any further chest pain or shortness of breath at the time of exam. Repeat troponin was reported to be elevated and EKG changes were present. Patient's rate was 70, ST elevation in V3, V2 in comparison to admission EKG showed flattening V2, V4 flipped in comparison to the previous acute EKG, V5 and V6 were inverted prior; however, have flattened since. The patient's family verbalized u nderstanding regarding speaking with Dr. Kevin and as far as medication management only at this poin t in time, the patient agreed. The emergency department staff instructed to give patient Lovenox chung or to arrival to the floor, the patient's vital signs were stable. REVIEW OF SYSTEMS: No fevers, no chills. Positive chest pain. Positive shortness of breath. Posit vani cough. No runny nose, no congestion. No abdomen pain, no diarrhea, no constipation. No lower e xtremity edema. No skin breakdowns. No focal deficits. No syncope. No headache. X-RAY FINDINGS: Chest x-ray, cardiac pacemaker in place, slight pulmonary congestion, perihilar spac es, mild cardiomegaly, no acute cardiopulmonary events otherwise. LABORATORY WORK: Hemoglobin of 14.3, white blood cell count of 5.1, platelet count of 164. D-dimer elevated to 0.67. INR 1.0. Troponins x3, 0.017, 0.568, 1.01. BNP of 874, albumin of 3.8. TSH of 4 .2, CK-MB of 2.6, AST of 20, ALT of 17, glucose of 367, magnesium 1.8, potassium of 4.8. Sodium of 1 30, chloride of 97, BUN of 16, creatinine of 1.09. PAST MEDICAL HISTORY: Includes coronary artery disease, diabetes on insulin. ALLERGIES: No known drug allergies. PAST SURGICAL HISTORY: Include back surgery x4 with Dr. Condon, cholecystectomy, the patient has def ibrillator placed, coronary artery bypass graft x3 vessels 2 times. SOCIAL HISTORY: Nonsmoker. Drinks caffeine. No alcohol use currently. Lives with family. HOME MEDICATIONS: Include Singulair 10 mg, calcium, vitamin D, multivitamin, Plavix 75 mg, ranolazin e extended release 500 mg daily, carvedilol 6.25 mg, Zetia 10 mg, lisinopril 5 mg, pravastatin 80 mg, isosorbide dinitrate 30 mg, Split-Mix 70/30 six units a.m., 10 units p.m., Lasix 20 mg once daily, n itroglycerin sublingual p.r.n., iron 325 mg, pantoprazole 40 mg, oxybutynin 5 mg. PHYSICAL EXAMINATION: GENERAL: The patient is alert and oriented, in no acute distress. HEENT: Head is normocephalic, atraumatic. Extraocular movements are intact. Sclerae are clear. Or al mucosa is moist. Nasal cannula is in place. NECK: Supple. HEART: Regular rate and rhythm at the time of exam. No murmurs auscultated. LUNGS: Clear to auscultation bilaterally. No rubs or wheezes. ABDOMEN: Soft, nontender, positive bowel sounds throughout. EXTREMITIES: Lower extremities without cyanosis or edema. The patient is alert and oriented x3. NEUROLOGIC: No focal deficits. Speech is normal. ASSESSMENT AND PLAN: 1. Non-ST elevation myocardial infarction. Cardiology has been notified, specifically Dr. Kevin. Recommending medical management initiating Plavix load and therapeutic Lovenox. We will continue pat ient's home statin, beta ethan, MIKE inhibitor. We will monitor the patient's vital signs and rhyth m on telemetry. Follow up on further cardiac recommendations. 2. Diabetes type 2. While the patient is inpatient, we will change consultant to long-acting insulin with sliding scale Accu-Cheks starting at q.4 hours until blood sugar between 120 and 160 and then we milind l start his Accu-Cheks putting the patient currently on clear diet. No definitive plans for procedur es at this point in time. Continue the patient's proton pump inhibitor and medications above for her hypertension holding the patient's acute anginal medicines, but we will continue nitroglycerin spray . We will make sure the patient is on 325 mg aspirin, unless otherwise notified by manager air joseluis mmendations. We will hand off to Dr. Matthews in a.m.
[2017-07-31] MEDS: Carvedilol 25 MG TAB PO SCH ×2 (14:57→20:46)
[2017-07-31] MEDS: Enoxaparin Sodium 60 MG/0.6 ML SYRINGE SC SCH ×2 (14:57→20:47)
[2017-07-31] MEDS: Insulin Glargine 20 UNITS in Pre-Filled Syringe 1 EACH SC SCH (14:58)
[2017-07-31] MEDS: Oxybutynin 5 MG TAB PO SCH ×2 (14:58→20:46)
[2017-07-31] MEDS: Sodium Chloride 0.9% 1,000 ML IV SCH ×2 (15:21→20:48)
[2017-07-31 15:39] VITALS: BMI 25.8
[2017-07-31 15:56] LABS: Troponin I 1.175 ng/mL (< 0.028)
[2017-07-31] MEDS: HumaLOG 300 UNITS/3 ML VIAL SC PRN (16:48)
[2017-07-31 18:17] LABS: Critical Call Chem Troponin I RESULT DECREASING; Troponin I 1.132 ng/mL (< 0.028)
[2017-07-31] MEDS: Lisinopril 2.5 MG TAB PO SCH (20:46)
[2017-07-31] MEDS: Atorvastatin Calcium 20 MG TAB PO SCH (20:46)
[2017-07-31 20:47] LABS: Critical Call Chem Troponin I RESULT DECREASING; Troponin I 1.009 ng/mL (< 0.028)
[2017-07-31] MEDS ORDERED: Non-Formulary Item 1 EACH (Pravastatin Sodium [Pravastatin Sodium] 80 MG) PO SCH (21:00)
--- NOTE | 2017-07-31 23:59 | CON ---
DATE OF CONSULTATION: 07/31/2017 REASON FOR CONSULTATION: Unstable angina, non-ST elevation myocardial infarction. HISTORY OF PRESENT ILLNESS: Ms. Gomez is a delightful 82-year-old woman with severe coronary artery disease with a non-ST elevation infarction. Ms. Gomez was doing well recently, but started having recurrent severe chest pain, substernal, last night, took 3 nitroglycerin and the pain did not resolve. Ultimately, she called an ambulance and wa s brought here and the pain resolved here. PAST MEDICAL HISTORY: Please see the previous details, she has had previous bypass surgery. The mos t recent catheterization indicated there is no other intervention feasible. MEDICATIONS: At home, she was taking Zetia, isosorbide, furosemide, insulin, Ranexa, clopidogrel, ir on, aspirin, carvedilol. I do not see a statin listed, therefore, either she was on a statin or stat in intolerant. We will need to check that. REVIEW OF SYSTEMS: Constitutional: No significant weight gain or loss. Vision: No changes. Heari ng: No changes. Pulmonary: No cough or wheezing. Gastrointestinal: No nausea, vomiting, diarrhea . Skin: No rashes. Neurologic: No unilateral weakness or numbness. Psychiatric: No unusual depr ession or anxiety. Hematologic: No unusual bruising. Genitourinary: No burning with urination. PAST SURGICAL HISTORY: Previous bypass surgery. PHYSICAL EXAMINATION: GENERAL: This is a pleasant elderly woman in no distress. VITAL SIGNS: Blood pressure is 158/70, pulse 70 regular. HEENT: Sclerae nonicteric. Mouth mucous membranes are moist. NECK: Supple, no lymphadenopathy. LUNGS: Clear, no wheezing, rales or rhonchi. CARDIAC: Normal S1, normal S2. I do not hear murmur, rub or gallop. ABDOMEN: Soft, nontender. EXTREMITIES: No clubbing or cyanosis. There is no edema. SKIN: Warm and dry. PERTINENT LABORATORY: The peak troponin was 1.175. EKG, atrial paced, ventricular sensed rhythm, some nonspecific changes. ASSESSMENT: 1. Non-ST elevation myocardial infarction. 2. Previous bypass surgery. 3. Catheterization done in 2009 revealed left main normal, LAD 100%, circumflex 100%, right coronary 100% occluded after some diffuse disease in proximal vessels. Circumflex graft patent. Right coron edelmira widely patent with good flow, internal mammary patent. Small saphenous vein graft to the LAD was occluded. Catheterization done, however, 02/2014 revealed internal mammary supplied to very small a mount of the LAD. The saphenous vein graft to obtuse marginal revealed 80% stenosis at the anastomos is, not amenable to percutaneous therapy. Saphenous vein graft to the right coronary occluded. Real ly no further intervention looks feasible. PLAN: 1. Continue with Lovenox. 2. We will continue to follow with you. Medical therapy is the only option.
[2017-08-01 04:40] LABS: #Eosinphils 0.1 thou/uL (0.0-0.7); #Lymphocytes 1.6 thou/uL (1.20-3.40); #Monocytes 0.6 thou/uL (0.11-0.59); #Neutrophils 2.5 thou/uL (1.40-6.50); %Basophils 0.9 % (0.0-1.0); %Eosinophils 1.7 % (0.0-10.0); %Lymphocytes 32.5 % (21.0-51.0); %Monocytes 13.1 % (0.0-10.0); %Neutrophils 51.8 % (42.0-75.0); Mean Platelet Volume 8.3 fL (7.4-10.4); Platelet Count 133 thou/uL (130-400); Red Blood Cell (RBC) Count 3.55 mill/uL (4.20-5.40); White Blood Cell (WBC) Count 4.9 thou/uL (4.8-10.8)
[2017-08-01] MEDS: Sodium Chloride 0.9% 1,000 ML IV SCH (04:54)
[2017-08-01 05:00] LABS: ALT (SGPT) 15 U/L (8-55); AST (SGOT) 22 U/L (5-34); Albumin 3.1 g/dL (3.4-4.8); Alkaline Phosphatase 47 U/L (40-150); Anion Gap 10 mmol/L (10-20); BUN (Urea Nitrogen) 12 mg/dL (9.8-20.1); Bilirubin, Total 0.8 mg/dL (0.2-1.2); Calc. Creatinine Clearance 56 mL/min (70-130); Calcium 8.4 mg/dL (7.8-10.44); Carbon Dioxide 25 mmol/L (23-31); Chloride 103 mmol/L (98-107); Estimated GFR-MDRD 72; Globulin 2.8 g/dL (2.4-3.5); Glucose 120 mg/dL (83-110); Potassium 4.2 mmol/L (3.5-5.1); Protein, Total 5.9 g/dL (6.0-8.3); Sodium 134 mmol/L (136-145)
--- NOTE | 2017-08-01 07:55 | PRG ---
DATE OF SERVICE: 08/01/2017 Ms. Gomez is resting well. She has no noted chest pain. PHYSICAL EXAMINATION: VITAL SIGNS: Blood pressure is 125/59. Room air sats 96%. GENERAL: She is alert, active, in no distress. LUNGS: Clear. HEART: Reveals no murmur. ABDOMEN: Soft, nontender, bowel sounds are active. No hepatosplenomegaly is noted. LABORATORY DATA: Hemoglobin 12.0, hematocrit 34.4. Chemistry within normal limits. IMPRESSION: 1. Atherosclerotic coronary artery disease. 2. Non-ST segment elevation myocardial infarction. PLAN: The patient is currently on Cardiology management. We will continue to follow their specific guidelines to begin a walking program.
[2017-08-01] MEDS: Aspirin 325 mg Enteric Coated Tablet PO SCH (08:40)
[2017-08-01] MEDS: Clopidogrel Bisulfate 75 MG TAB PO SCH (08:40)
[2017-08-01] MEDS: Carvedilol 25 MG TAB PO SCH ×2 (08:40→21:55)
[2017-08-01] MEDS: Oxybutynin 5 MG TAB PO SCH ×2 (08:40→21:55)
[2017-08-01] MEDS: Insulin Glargine 20 UNITS in Pre-Filled Syringe 1 EACH SC SCH (08:41)
[2017-08-01] MEDS: Enoxaparin Sodium 60 MG/0.6 ML SYRINGE SC SCH ×2 (08:41→21:59)
[2017-08-01] MEDS ORDERED: Prevnar 13-Val Conj/PF 0.5 ML SYRINGE IM ONE (09:00)
[2017-08-01] MEDS: HumaLOG 300 UNITS/3 ML VIAL SC PRN ×2 (12:18→18:04)
--- NOTE | 2017-08-01 16:58 | PRG ---
DATE OF SERVICE: 08/01/2017 SUBJECTIVE: Ms. Gomez is doing well. No chest pain or pressure. OBJECTIVE: VITAL SIGNS: Blood pressure 122/60, pulse 70. LUNGS: Clear. CARDIAC: Normal S1, normal S2. ABDOMEN: Soft, nontender. ASSESSMENT: 1. Status post non-ST elevation infarction. 2. Inoperable coronary disease. PLAN: She should be ready to go home tomorrow.
[2017-08-01] MEDS: Lisinopril 2.5 MG TAB PO SCH (21:54)
[2017-08-01] MEDS: Atorvastatin Calcium 20 MG TAB PO SCH (21:55)
[2017-08-02 08:31] VITALS: BP 135/61; TEMP 97.8
[2017-08-02] MEDS: Clopidogrel Bisulfate 75 MG TAB PO SCH (09:48)
[2017-08-02] MEDS: Aspirin 325 mg Enteric Coated Tablet PO SCH (09:48)
[2017-08-02] MEDS: Carvedilol 25 MG TAB PO SCH (09:49)
[2017-08-02] MEDS: Oxybutynin 5 MG TAB PO SCH (09:49)
[2017-08-02] MEDS: Enoxaparin Sodium 60 MG/0.6 ML SYRINGE SC SCH (09:50)
[2017-08-02] MEDS: Insulin Glargine 20 UNITS in Pre-Filled Syringe 1 EACH SC SCH (09:50)
--- NOTE | 2017-08-02 11:00 | PRG ---
DATE OF SERVICE: 08/02/2017 SUBJECTIVE: Ms. Gomez is doing well. She has no complaints. PHYSICAL EXAMINATION: VITAL SIGNS: Temperature of 98.0, pulse 78, BP 124/61, O2 sats 94% on room air. LUNGS: Clear. HEART: Reveals no murmur. EXTREMITIES: No clubbing, edema, or cyanosis. LABORATORY DATA: Blood sugars are adequately controlled. IMPRESSION: 1. Non-ST segment elevated myocardial infarction. 2. History of atherosclerotic coronary artery disease. PLAN: The patient is now stable. She may be discharged home to continue her current medications. S he will follow up with me in [address] Kevin will schedule follow up with him.
[2017-08-02] MEDS: HumaLOG 300 UNITS/3 ML VIAL SC PRN (12:20)
--- NOTE | 2017-08-03 20:10 | EKG ---
Test Reason : Blood Pressure : / mmHG Vent. Rate : 070 BPM Atrial Rate : 070 BPM P-R Int : 000 ms QRS Dur : 096 ms QT Int : 418 ms P-R-T Axes : 067 -25 132 degrees QTc Int : 451 ms Electronic atrial pacemaker Inferior infarct (cited on or before 13-SEP-2014) Anterior infarct (cited on or before 10-SEP-2014) Abnormal ECG When compared with ECG of 31-JUL-2017 07:17, (Unconfirmed) Questionable change in initial forces of Lateral leads Confirmed by KEISHA REYNOSO (2) on 08/03/2017 8:10:34 PM Referred By: TIFFANIE Confirmed By:KEISHA REYNOSO
== END 2017-08-02 14:50 | disposition home or self-care (01) | DRG 282 ==
LOC: ERS 02:59 → ERHOLD 08:16 → 2NO 14:32
PROVIDERS: ADMIT Family Medicine; ATTEND Family Medicine
DX: I21.A1 Myocardial infarction type 2 (principal); I25.10 Atherosclerotic heart disease of native coronary artery without angina pectoris; Z95.1 Presence of aortocoronary bypass graft; Z95.0 Presence of cardiac pacemaker; E11.9 Type 2 diabetes mellitus without complications; Z79.4 Long term (current) use of insulin
CPT/HCPCS: 36415; 36416; 71045; 80053; 82550; 82553; 83735; 83880; 84443; 84484; 85025; 85379; 85610; 85730; 90471; 90670; 93005; 93010; 93798; 94760; G0009; J1650

== ENCOUNTER 2017-11-16 01:12 | Inpatient (IN) | payer MEDICARE ==
[2017-11-16 01:42] LABS: #Basophils 0.1 thou/uL (0.0-0.2); #Eosinphils 0.1 thou/uL (0.0-0.7); #Lymphocytes 1.5 thou/uL (1.20-3.40); #Monocytes 0.6 thou/uL (0.11-0.59); #Neutrophils 3.9 thou/uL (1.40-6.50); %Basophils 0.9 % (0.0-1.0); %Eosinophils 0.9 % (0.0-10.0); %Lymphocytes 24.8 % (21.0-51.0); %Monocytes 9.4 % (0.0-10.0); Hemoglobin 13.3 g/dL (12.0-16.0); Mean Corpuscular HGB CONC 34.1 g/dL (32.0-36.0); Mean Corpuscular Hemoglobin 32.3 pg (27.0-31.0); Mean Corpuscular Volume 94.7 fL (78.0-98.0); Mean Platelet Volume 8.1 fL (7.4-10.4); Platelet Count 166 thou/uL (130-400); RBC Distribution Width 12.2 % (11.5-14.5); Red Blood Cell (RBC) Count 4.11 mill/uL (4.20-5.40); White Blood Cell (WBC) Count 6.1 thou/uL (4.8-10.8)
[2017-11-16 02:02] LABS: ALT (SGPT) 14 U/L (8-55); AST (SGOT) 17 U/L (5-34); Acetaminophen Less than 6.0 mcg/mL (10.0-30.0); Albumin 3.5 g/dL (3.4-4.8); Alcohol Less than 10 mg/dL (Less than 10); Alkaline Phosphatase 77 U/L (40-150); Anion Gap 15 mmol/L (10-20); BUN (Urea Nitrogen) 15 mg/dL (9.8-20.1); Bilirubin, Total 0.5 mg/dL (0.2-1.2); CK (CPK) 52 U/L (29-168); Calc. Creatinine Clearance 0 mL/min (70-130); Calcium 8.9 mg/dL (7.8-10.44); Carbon Dioxide 22 mmol/L (23-31); Chloride 95 mmol/L (98-107); Estimated GFR-MDRD 51; Globulin 3.8 g/dL (2.4-3.5); Glucose 396 mg/dL (83-110); Lipase 18 U/L (8-78); Magnesium 1.5 mg/dL (1.6-2.6); Potassium 4.5 mmol/L (3.5-5.1); Protein, Total 7.3 g/dL (6.0-8.3); Salicylate Less than 8.0 mg/dL (15.0-30.0); Sodium 127 mmol/L (136-145)
[2017-11-16 02:06] LABS: CKMB 1.6 ng/mL (0-6.6); Troponin I Less than 0.010 ng/mL (< 0.028)
[2017-11-16] MEDS ORDERED: Furosemide 40 MG/4 ML VIAL ONE (02:51)
[2017-11-16 05:12] VITALS: BMI 25.4
[2017-11-16 07:11] LABS: Troponin I 0.103 ng/mL (< 0.028)
[2017-11-16] MEDS ORDERED: Zolpidem Tartrate 5 MG TAB PO PRN (07:42)
[2017-11-16] MEDS ORDERED: Acetaminophen 325 MG TAB PO PRN (07:42)
--- NOTE | 2017-11-16 07:43 | RAD ---
CHEST 1 VIEW: HISTORY: Hypoxic. COMPARISON: Chest radiograph 07/31/17. FINDINGS: There is moderate interstitial pulmonary edema. Small effusions. Cardiac silhouette is enlarged. N o pneumothorax. Dual-lead AICD/pacer is similar. Incomplete evaluation of lumbar spinal fusion hard carver. IMPRESSION: Cardiomegaly. Small effusions and mild edema. POS: [facility]
[2017-11-16] MEDS ORDERED: Nitroglycerin 0.4 MG TAB (25 Tab Bottle) SL PRN (07:45)
[2017-11-16] MEDS ORDERED: Furosemide 20 MG TAB PO PRN (07:45)
[2017-11-16] MEDS ORDERED: Dextrose 5% in Water 1,000 ML IV PRN (07:46)
[2017-11-16] MEDS ORDERED: Dextrose 50% Abboject 50 ML SYRINGE SLOW IVP PRN (07:46)
--- NOTE | 2017-11-16 08:11 | HP ---
HISTORY OF PRESENT ILLNESS: The patient is an 82-year-old female with known history of atherosclerot ic coronary artery disease that cannot be treated with the other procedures at this time. She has a history of multiple small MIs over the last several years. She is followed by myself and Dr. Kevin . She reports she had some chest pain last night. She said she had some mild shortness of breath. She took 2 nitroglycerin and was brought to the emergency room. She was treated, found to be in mild congestive heart failure and subsequently admitted to the hospital for further observation. At this time, she states she is currently feeling well. She has no other medical complaints at this time. She reports no chest pain, shortness of breath at this moment and has no other medical complai nts. No nausea, vomiting, diarrhea, no productive cough. ALLERGIES: She has no known allergies. CURRENT MEDICATIONS: Plavix 75 mg daily, oxybutynin 5 mg b.i.d., Nitrostat as needed for pain, Zest ril 2.5 mg at bedtime, carvedilol 6.25 mg b.i.d., pantoprazole 40 mg daily, isosorbide 30 mg q.a.m., pravastatin 80 mg daily, montelukast 10 mg daily, Zetia 10 mg daily, Ranexa 500 mg b.i.d., she also t akes various vitamins and iron. She also takes Humalog insulin. PAST MEDICAL HISTORY: Positive for hypertension, atherosclerotic coronary artery disease, type 1 ruperto betes mellitus. PAST SURGICAL HISTORY: Positive for multiple back surgeries, cholecystectomy, defibrillator, coronar y bypass graft. SOCIAL/PERSONAL HISTORY: She is nonsmoker, does not drink alcohol. Lives at home alone, mostly with her family close by. PHYSICAL EXAMINATION: VITAL SIGNS: Temperature 97.7, BP 144/66, O2 sats 93% on room air, pulse 81 and regular. GENERAL: She is alert, active, in no distress. HEENT: Normocephalic, atraumatic. Sclerae and conjunctivae are clear. Throat clear. NECK: Supple, full range of motion, no masses, no bruits. Thyroid midline without thyromegaly or th yroid masses. LUNGS: Reveal bilateral breath sounds without rales or rhonchi. EXTREMITIES: No clubbing, edema or cyanosis. ABDOMEN: Soft, nontender, bowel sounds are present and active. NEUROLOGIC: She is alert and oriented x3, moves all extremities. LABORATORY: Her hemoglobin is 13.3, hematocrit 38.9, white blood count 6.1, sodium 127, potassium 4. 5, chloride 95, CO2 of 22, BUN 15, creatinine 1.04. Initial troponin is less than 0.01, followed by a small bump of 0.103. BNP slightly elevated at 690. Chest x-ray by report shows some mild congestive heart failure. IMPRESSION: This is an 82-year-old female with known history of atherosclerotic coronary artery dise ase who reported to the emergency room with symptoms of chest pain that seems to be much better now. She also has some symptoms compatible with possible congestive heart failure. PLAN: The patient has been placed in observation at this time, so we can further observe her. We wi ll get Dr. Kevin to consult to see if there is any further treatment recommendations from a Cardiolo gy standpoint. We will continue on a small dose of p.o. Lasix today. Further cardiac enzyme monitor ing.
[2017-11-16] MEDS ORDERED: Non-Formulary Item 1 EACH (Multivit-Min/Fa/Lutein/Zeaxant [Icaps Eye Vitamin Multivitamin PO SCH (09:00)
[2017-11-16] MEDS ORDERED: Non-Formulary Item 1 EACH (Multivitamin [Multivitamins] 1 CAP) PO SCH (09:00)
[2017-11-16] MEDS ORDERED: INSULIN LISPRO SC SCH (09:00)
[2017-11-16] MEDS ORDERED: Carvedilol 25 MG TAB PO SCH (09:00)
[2017-11-16] MEDS ORDERED: INSULIN LISPRO PROTAMINE SC SCH (09:00)
[2017-11-16] MEDS ORDERED: Non-Formulary Item 1 EACH (Ferrous Sulfate [Iron] 325 MG) PO SCH (09:00)
[2017-11-16 09:41] LABS: Troponin I 0.153 ng/mL (< 0.028)
[2017-11-16] MEDS: Carvedilol 6.25 MG TAB PO SCH ×2 (09:57→20:42)
[2017-11-16] MEDS: Calcium Carbonate + Vit D 1 TAB PO SCH ×2 (09:57→20:41)
[2017-11-16] MEDS: Oxybutynin 5 MG TAB PO SCH ×2 (09:58→20:43)
[2017-11-16] MEDS: Vit A,C & E/Lutein/Minerals Tablet PO SCH (09:58)
[2017-11-16] MEDS: Ferrous Sulfate 325 MG TAB PO SCH ×2 (09:59→20:41)
[2017-11-16] MEDS: Multivit, Therapeutic 1 TAB PO SCH (09:59)
[2017-11-16] MEDS: Ezetimibe 10 MG TAB PO SCH (09:59)
[2017-11-16] MEDS: Aspirin 81 mg Enteric Coated Tablet PO SCH (09:59)
[2017-11-16] MEDS: Insulin NPH/Reg Insulin Hm 300 UNITS/3 ML VIAL SC SCH (10:07)
[2017-11-16] MEDS ORDERED: Furosemide 40 MG/4 ML VIAL SLOW IVP SCH (13:30)
--- NOTE | 2017-11-16 13:39 | CON ---
DATE OF CONSULTATION: 11/16/2017 CARDIOLOGY CONSULTATION REASON FOR CONSULTATION: Congestive heart failure, systolic, acute on chronic, angina. HISTORY OF PRESENT ILLNESS: Ms. Gomez is a very pleasant 82-year-old woman with history of severe c oronary artery disease with multiple hospitalizations. She has severe chest pain yesterday which did not respond to nitroglycerin. Ultimately, she came to the hospital where she was admitted for critical access hospital er therapy. She is resting comfortably now. She did receive 40 mg of Lasix this morning at 03:00 a.m. MEDICATIONS AT HOME: 1. Zetia. 2. Iron. 3. Carvedilol. 4. Ranexa. 5. Clopidogrel. 6. Lisinopril. 7. Pantoprazole. 8. Pravastatin. 9. Humalog. 10. Furosemide. ALLERGIES: None known. SOCIAL HISTORY: No alcohol or tobacco. She has a very supportive family. REVIEW OF SYSTEMS: CONSTITUTIONAL: No significant weight gain or loss. VISION: No changes. Heari ng: No changes. PULMONARY: No cough or wheezing. CARDIAC: As outlined above. GASTROINTESTINAL: No nausea, vomiting, diarrhea. SKIN: No rashes. NEUROLOGIC: No unilateral weakness or numbness. PSYCHIATRIC: No unusual depression or anxiety. HE MATOLOGIC: No unusual bruising. GENITOURINARY: No burning with urination. SKIN: Warm and dry. IMAGING DATA: Chest x-ray shows pulmonary edema, congestive heart failure. PERTINENT LABORATORY DATA: Troponin 0.153. BNP 690. Sodium 127. The patient does have known depre ssed left ventricular function with an echocardiogram done on 01/2017. Ejection fraction 20%-25%. T he patient also has a previous pacemaker defibrillator with atrial pacing, ventricular sensing. ASSESSMENT: Recurrent pulmonary edema due to coronary artery disease. The patient has diffusely ath erosclerotic LAD, occluded circumflex with disease in the saphenous vein graft to the obtuse marginal , diffuse disease in the right coronary with occluded graft. There is nothing can be done to revascu larize that area. PLAN: 1. Give 1 extra dose of Lasix. 2. Continue other medicines. 3. Go ahead and repeat echocardiogram. Probably home soon. Not much else could be done in this unf ortunate patient's case and then rearranged her medicines.
[2017-11-16] MEDS ORDERED: Atorvastatin Calcium 20 MG TAB PO SCH (21:00)
[2017-11-16] MEDS ORDERED: Montelukast Sodium 10 mg Tablet PO SCH (21:00)
[2017-11-16] MEDS ORDERED: Clopidogrel Bisulfate 75 MG TAB PO SCH (21:00)
[2017-11-16] MEDS ORDERED: Lisinopril 2.5 MG TAB PO SCH (21:00)
[2017-11-16] MEDS ORDERED: Non-Formulary Item 1 EACH (Pravastatin Sodium [Pravastatin Sodium] 80 MG) PO SCH (21:00)
[2017-11-16] MEDS: Insulin Regular 300 UNITS/3 ML VIAL SC PRN (23:08)
[2017-11-17 04:09] LABS: Anion Gap 13 mmol/L (10-20); BUN (Urea Nitrogen) 23 mg/dL (9.8-20.1); Calc. Creatinine Clearance 35 mL/min (70-130); Calcium 9.8 mg/dL (7.8-10.44); Carbon Dioxide 31 mmol/L (23-31); Chloride 92 mmol/L (98-107); Estimated GFR-MDRD 42; Glucose 189 mg/dL (83-110); Sodium 132 mmol/L (136-145)
[2017-11-17] MEDS: Insulin Regular 300 UNITS/3 ML VIAL SC PRN ×2 (06:29→11:20)
--- NOTE | 2017-11-17 07:49 | PRG ---
DATE OF SERVICE: 11/17/2017 Ms. Gomez is doing well. She has had no further chest pain or shortness of breath. She is feeling "normal" again. PHYSICAL EXAMINATION: VITAL SIGNS: Blood pressure 101/54, O2 sats 99%, temperature 98.4. LUNGS: Clear. HEART: Reveals no murmur. LABORATORY: She did have a mild bump in her troponin 0.153. All other lab findings are otherwise no rmal. IMPRESSION: Atherosclerotic coronary artery disease, possibly could have had a very small non-ST seg ment elevated myocardial infarction versus congestive heart failure causing some strain. PLAN: She is currently stable. I believe she can be discharged home today on her home medications.
[2017-11-17] MEDS: Oxybutynin 5 MG TAB PO SCH (08:40)
[2017-11-17] MEDS: Calcium Carbonate + Vit D 1 TAB PO SCH (08:40)
[2017-11-17] MEDS: Ezetimibe 10 MG TAB PO SCH (08:40)
[2017-11-17] MEDS: Ferrous Sulfate 325 MG TAB PO SCH (08:40)
[2017-11-17] MEDS: Multivit, Therapeutic 1 TAB PO SCH (08:40)
[2017-11-17] MEDS: Vit A,C & E/Lutein/Minerals Tablet PO SCH (08:41)
[2017-11-17] MEDS: Carvedilol 6.25 MG TAB PO SCH (08:41)
[2017-11-17] MEDS: Aspirin 81 mg Enteric Coated Tablet PO SCH (08:41)
[2017-11-17] MEDS: Insulin NPH/Reg Insulin Hm 300 UNITS/3 ML VIAL SC SCH (08:43)
--- NOTE | 2017-11-17 12:02 | DIS ---
DATE OF ADMISSION: 11/16/2017 DATE OF DISCHARGE: 11/17/2017 DISCHARGE DIAGNOSES: 1. Congestive heart failure. 2. History of atherosclerotic coronary artery disease. 3. Possible zim-HA-lmzdnto elevated infarction. ADMITTING PHYSICIAN: Neri Matthews M.D. CONSULTING PHYSICIAN: Dr. Kevin. HOSPITAL SUMMARY: This is an 82-year-old female with known history of nonoperable and non-procedural ly-managed atherosclerotic coronary artery disease. In the emergency room, complaining of continued shortness of breath, some chest pain, or discomfort. She was seen and evaluated in the ER. It was f elt like some of her shortness of breath was related to new onset of heart failure. She was treated with IV Lasix and had most of her symptoms were relieved. It was noted her troponins did bump to 0.153. By the second hospital day, she was completely pain free. Cardiac consult was o btained from Dr. Kevin. Dr. Kevin recommended no change in her medication, as her condition is cer tainly nonoperable and nonprocedurally-based. She will be discharged home today on 11/17/2017. DISCHARGE MEDICATIONS: Aspirin 81 mg daily; atorvastatin 20 mg daily; carvedilol 6.25 b.i.d.; clopid ogrel 75 mg daily; Zetia 10 mg daily; ferrous sulfate 325 daily; Lasix 20 mg daily; insulin Humulin 7 0/30, 6 units q.a.m.; isosorbide 30 mg daily; lisinopril 2.5 mg daily; Ranexa 500 mg b.i.d.; pantopra zole 40 mg daily; oxybutynin 5 mg b.i.d.. PLAN: She will be seen in followup by me in approximately 1 week.
--- NOTE | 2017-11-17 13:47 | EKG ---
Test Reason : Blood Pressure : / mmHG Vent. Rate : 080 BPM Atrial Rate : 080 BPM P-R Int : 184 ms QRS Dur : 102 ms QT Int : 390 ms P-R-T Axes : 039 -07 155 degrees QTc Int : 449 ms Normal sinus rhythm Inferior infarct , age undetermined Anterolateral infarct , age undetermined Abnormal ECG Confirmed by CHANTEL CASE D.O. ([id number]), scientific publications editor KLEVER CARRASCO ([id number]) on 11/17/2017 1:47:31 PM Referred By: Confirmed By:CHANTEL CASE D.O.
[2017-11-17 15:39] VITALS: BP 126/60; TEMP 97.9
== END 2017-11-17 16:43 | disposition home or self-care (01) | DRG 282 ==
LOC: ERS 01:12 → 2SE 03:39
PROVIDERS: ADMIT Family Medicine; ATTEND Family Medicine
DX: I11.0 Hypertensive heart disease with heart failure (principal); I21.4 Non-ST elevation (NSTEMI) myocardial infarction; I25.10 Atherosclerotic heart disease of native coronary artery without angina pectoris; I25.2 Old myocardial infarction; Z79.02 Long term (current) use of antithrombotics/antiplatelets; Z79.4 Long term (current) use of insulin; E10.9 Type 1 diabetes mellitus without complications; I50.23 Acute on chronic systolic (congestive) heart failure
CPT/HCPCS: 36415; 36416; 71045; 80048; 80053; 80307; 82553; 83690; 83735; 83880; 84484; 85025; 93005; 93306; 93798; 96374; J1815; J1940

== ENCOUNTER 2017-11-20 09:38 | Emergency (ER) | payer MEDICARE ==
[2017-11-20 10:14] LABS: #Eosinphils 0.1 thou/uL (0.0-0.7); #Lymphocytes 1.6 thou/uL (1.20-3.40); #Monocytes 0.6 thou/uL (0.11-0.59); #Neutrophils 3.4 thou/uL (1.40-6.50); %Basophils 0.5 % (0.0-1.0); %Eosinophils 1.4 % (0.0-10.0); %Lymphocytes 27.9 % (21.0-51.0); %Neutrophils 60.3 % (42.0-75.0); Mean Corpuscular HGB CONC 35.5 g/dL (32.0-36.0); Mean Corpuscular Hemoglobin 33.3 pg (27.0-31.0); Mean Platelet Volume 8.1 fL (7.4-10.4); Platelet Count 159 thou/uL (130-400); RBC Distribution Width 12.3 % (11.5-14.5); Red Blood Cell (RBC) Count 3.91 mill/uL (4.20-5.40); White Blood Cell (WBC) Count 5.6 thou/uL (4.8-10.8)
[2017-11-20 10:29] LABS: ALT (SGPT) 13 U/L (8-55); AST (SGOT) 21 U/L (5-34); Albumin 3.6 g/dL (3.4-4.8); Alkaline Phosphatase 62 U/L (40-150); Anion Gap 12 mmol/L (10-20); BUN (Urea Nitrogen) 20 mg/dL (9.8-20.1); Bilirubin, Total 0.7 mg/dL (0.2-1.2); CK (CPK) 59 U/L (29-168); Calc. Creatinine Clearance 0 mL/min (70-130); Calcium 9.1 mg/dL (7.8-10.44); Carbon Dioxide 23 mmol/L (23-31); Chloride 99 mmol/L (98-107); Estimated GFR-MDRD 58; Globulin 3.7 g/dL (2.4-3.5); Glucose 167 mg/dL (83-110); Potassium 4.3 mmol/L (3.5-5.1); Protein, Total 7.3 g/dL (6.0-8.3); Sodium 130 mmol/L (136-145)
[2017-11-20 10:39] LABS: CKMB 1.6 ng/mL (0-6.6); Troponin I 0.013 ng/mL (< 0.028)
[2017-11-20 11:21] LABS: Bilirubin Negative (Negative); Blood, Urine Negative (Negative); Glucose, Urine (Dipstick) Negative (Negative); Leukocyte Trace (Negative); Nitrite Negative (Negative); Protein, Urine (Dipstick) Negative (Neg-Trace); Urobilinogen 0.2 mg/dL (0.2-1.0)
[2017-11-20 11:23] LABS: Clarity CLEAR (Clear)
[2017-11-20 11:32] LABS: Bacteria/HPF 1+ HPF (None Seen); RBC/HPF None Seen HPF (0-3); Squamous Epithelial 0-3 HPF (0-3)
--- NOTE | 2017-11-20 12:14 | RAD ---
PORTABLE CHEST: Date: 11/20/17 COMPARISON: 11/16/17. HISTORY: Weakness. Blood clot in heart. Dyspnea. FINDINGS: The heart size is borderline. Postop sternotomy change and defibrillator device. The lungs are clear of infiltrates. IMPRESSION: No active intrathoracic disease. Minimal blunting to the right costophrenic angle could represent a s mall effusion versus pleural thickening. POS: [facility]
== END 2017-11-20 13:21 | disposition home or self-care (01) ==
LOC: ERS 09:38
DX: N39.0 Urinary tract infection, site not specified (principal); I25.10 Atherosclerotic heart disease of native coronary artery without angina pectoris; E11.9 Type 2 diabetes mellitus without complications; I10 Essential (primary) hypertension; I25.2 Old myocardial infarction; Z86.73 Personal history of transient ischemic attack (TIA), and cerebral infarction without residual deficits; Z79.899 Other long term (current) drug therapy; Z79.82 Long term (current) use of aspirin
CPT/HCPCS: 36415; 51701; 71045; 80053; 81003; 81015; 82550; 82553; 84484; 85025; 87077; 87086; 87186; 93005; A4353

== ENCOUNTER 2018-04-07 20:33 | Inpatient (IN) | payer MEDICARE ==
[2018-04-07] MEDS ORDERED: Nitroglycerin 2% Ointment 1 INCH/1 GM Packet ONE (20:50)
[2018-04-07 21:20] LABS: #Basophils 0.1 thou/uL (0.0-0.2); #Eosinphils 0.1 thou/uL (0.0-0.7); #Lymphocytes 2.2 thou/uL (1.20-3.40); #Monocytes 0.7 thou/uL (0.11-0.59); #Neutrophils 5.5 thou/uL (1.40-6.50); %Basophils 0.9 % (0.0-1.0); %Eosinophils 0.8 % (0.0-10.0); %Lymphocytes 25.7 % (21.0-51.0); %Monocytes 8.1 % (0.0-10.0); %Neutrophils 64.5 % (42.0-75.0); Mean Corpuscular HGB CONC 33.2 g/dL (32.0-36.0); Mean Corpuscular Volume 96.4 fL (78.0-98.0); Mean Platelet Volume 9.3 fL (7.4-10.4); Platelet Count 179 thou/uL (130-400); RBC Distribution Width 12.3 % (11.5-14.5); Red Blood Cell (RBC) Count 4.38 mill/uL (4.20-5.40); White Blood Cell (WBC) Count 8.6 thou/uL (4.8-10.8)
--- NOTE | 2018-04-07 21:27 | RAD ---
PORTABLE AP CHEST X-RAY 04/07/18 HISTORY: Chest pain. COMPARISON: 11/20/17. FINDINGS: A dual lead left subclavian AICD device is noted in place. A pacing pad overlies the right shoulder. Postsurgical changes related to median sternotomy are noted. Fractures of the upper sternal wires are again present. The cardiac silhouette is magnified by projection but is at the upper limits of smiley l to borderline enlarged. There is increased interstitial markings bilaterally which may be related t o either an element of mild pulmonary edema or infectious process. No pleural effusion is seen and th ere is no parenchymal consolidation. Vascular calcifications are seen in a mildly tortuous thoracic a bridgett. Osteopenia is present. IMPRESSION: 1. Increased interstitial densities bilaterally which may be related to either pulmonary edema o r infectious process. 2. Borderline cardiomegaly with pulmonary vasculature at the upper limits of normal. 3. Osteopenia. POS: [facility]
[2018-04-07 21:33] LABS: ALT (SGPT) 12 U/L (8-55); AST (SGOT) 22 U/L (5-34); Albumin 3.8 g/dL (3.4-4.8); Alkaline Phosphatase 88 U/L (40-150); Anion Gap 17 mmol/L (10-20); BUN (Urea Nitrogen) 16 mg/dL (9.8-20.1); Bilirubin, Total 0.5 mg/dL (0.2-1.2); CK (CPK) 52 U/L (29-168); Calc. Creatinine Clearance 0 mL/min (70-130); Calcium 9.5 mg/dL (7.8-10.44); Carbon Dioxide 23 mmol/L (23-31); Chloride 98 mmol/L (98-107); Estimated GFR-MDRD 56; Globulin 3.8 g/dL (2.4-3.5); Glucose 292 mg/dL (83-110); Potassium 4.6 mmol/L (3.5-5.1); Protein, Total 7.6 g/dL (6.0-8.3); Sodium 133 mmol/L (136-145)
[2018-04-07] MEDS ORDERED: Nitroglycerin 50 MG/250 ML BOT ONE (21:55)
[2018-04-07] MEDS ORDERED: Heparin 10,000 UNITS/ 10 ML VIAL ONE (21:55)
[2018-04-08 02:51] LABS: Troponin I 0.817 ng/mL (< 0.028)
[2018-04-08 04:00] LABS: Troponin I 0.965 ng/mL (< 0.028)
--- NOTE | 2018-04-08 06:09 | HP ---
PRIMARY CARE PHYSICIAN: Neri Matthews MD CHIEF COMPLAINT: Chest pain. HISTORY OF PRESENT ILLNESS: This is an 82-year-old female patient of Dr. Neri Matthews with a known longstanding history of nonoperable atherosclerotic coronary vascular disease. She was having her usual day today, went to the TV shop earlier this morning and came back from that, was just piddling around the house, not lifting anything, not exerting herself, and she had return of her well known chest pain, and she called the EMS and was brought into the emergency department. She had 3 doses of sublingual nitro en route. She was found on EKG to be in elevated ST STEMI. After arrival to the emergency room, the workup included getting a hold of her pain and she was given paste nitroglycerin and eventually IV nitroglycerin and her pain has resolved. The ER physicians talked several times to cardiology. She has a relationship with Dr. Kevin and Dr. Novoa, and Dr. Castorena has been on-call yesterday and today. Her last admission was in October of this year and currently, she says her pain has still resolved. ALLERGIES: NO KNOWN DRUG ALLERGIES. MEDICATIONS: 1. She is on Ranexa 500 mg p.o. b.i.d. 2. Pravastatin 80 mg daily. 3. Protonix 40 mg daily. 4. Oxybutynin 5 mg b.i.d. 5. Lisinopril 2.5 mg daily. 6. Isosorbide mononitrate 30 mg q.day. 7. Insulin 6 units of 75-25 mix in the morning and another 10 units at night. 8. Lasix 20 mg daily as needed. 9. Iron, ferrous sulfate 325 p.o. twice a day. 10. Zetia 10 mg daily. 11. Plavix 75 mg daily. 12. Coreg 6.25 mg twice a day. 13. Citracal D one twice a day. 14. Baby aspirin. PAST MEDICAL HISTORY: Positive for diabetes type 1, hypertension, hyperlipidemia, and atherosclerotic coronary vascular disease. PAST SURGICAL HISTORY: She has had coronary artery bypass graft many years ago. She has had a defibrillator placed. She has had cholecystectomy and she has had multiple back surgeries. SOCIAL HISTORY: No toxic habits. Lives at home alone. She is . Nonsmoker. Does not drink. She is house . PHYSICAL EXAMINATION: VITAL SIGNS: Her pulse is in the 80s, when she was initially in the ER she was actually slightly tachycardic in the 110 to 115 range and gotten back down to normal. Her blood pressure is ranging from low 100s to 160 systolic. Respiratory rate 13 to 15, saturating 99% on 2 L by nasal cannula. HEENT: Normocephalic, atraumatic cranium. Pupils are equal, round, and reactive to light and accommodation. She has myopia and wears glasses with bifocals. No hearing deficits. She does have moist and pink mucosa. Extraocular movements are intact. Her lower incisors on the mandible are missing. She has an implanted device where the teeth used to. She was in the process of considering getting major dental work done years ago and she has never finished that process. NECK: Supple. No JVD. No bruits. No thyromegaly. LUNGS: Clear to auscultation bilaterally. No rales, rhonchi, or wheezes. HEART: S1 and S2 with no rubs, murmurs, or gallops. ABDOMEN: Soft, nontender, and nondistended. No palpable masses. No hepatosplenomegaly. GENITOURINARY: Deferred. EXTREMITIES: Show good palpable pulses in all four extremities. No cyanosis, clubbing, or edema. Cap refill in the toes is less than 2 seconds. NEUROLOGIC: She is grossly intact. Alert and oriented x4. Very cognizant of her situation. Strength is 4/5. No sensory deficits noted. LABORATORY DATA: Her white count is normal at 8.6, hemoglobin is 14, hematocrit is 42, and platelets are 179. Chemistries showed a sodium of 133, potassium 4.6, chloride 98, bicarbonate 23, BUN 16, creatinine 0.96. GFR slightly low at 56. Glucose is 292. Troponin was normal at 0.015. DIAGNOSTIC STUDIES: EKG showed an obvious ST elevation in the septal and early lateral leads. Her chest x-ray showed possible increased interstitial densities bilaterally but they could not exclude this pulmonary edema from the MT. She also has borderline cardiomegaly with pulmonary vasculature at the upper limits of normal. Also, evidence of osteopenia. ASSESSMENT: Chest pain with known nonoperable atherosclerotic coronary vascular disease. Plan is to maintain current treatment using IV nitroglycerin and will start to wean her from that when her pain is maintained without needing the extra medicines she will be able to go home. Dr. Novoa has been consulted from Cardiology. Job ID: [id number]
--- NOTE | 2018-04-08 10:48 | PRG ---
DATE OF SERVICE: 04/08/2018 SUBJECTIVE: The patient remains in the emergency room ER hold as there were no rooms available in CCU. She remains on her nitroglycerin drip. It is down to 2.5. It started at 10 last night. She continues to be pain free. OBJECTIVE: VITAL SIGNS: Her blood pressure ranging from 110 to 140. Pulse is regular in the 70s to 80s. She is afebrile. HEART: S1 and S2. No rubs, murmurs, or gallops. LUNGS: Clear. LABORATORY DATA: Overnight, her troponin did come up as chemical evidence of the STEMI. Initially, it was negative at 0.015. Second troponin at 0200 hours was 0.8, and a third one at 0300 hours was 0.9. ASSESSMENT AND PLAN: ST elevation myocardial infarction with nonoperable atherosclerotic coronary vascular disease. Medical management only. Also with type 1 diabetes and hypertension. We will continue her titration down off the nitroglycerin drip and when she remains pain free, we will be able to send her home on resuming her regular medications at home and consider adding on a long-acting nitroglycerin such as Imdur or ISMO. Job ID: [id number]
[2018-04-08] MEDS ORDERED: Enoxaparin Sodium 80 MG/0.8 ML SYRINGE ONE (12:12)
[2018-04-08 15:14] VITALS: BMI 24.7
[2018-04-08] MEDS ORDERED: Furosemide 20 MG TAB PO PRN (19:44)
[2018-04-08] MEDS ORDERED: Nitroglycerin 0.4 MG TAB (25 Tab Bottle) SL PRN (19:48)
[2018-04-08] MEDS: Apixaban 5 MG TAB PO SCH (20:45)
[2018-04-08] MEDS: Oxybutynin 5 MG TAB PO SCH (20:46)
[2018-04-08] MEDS: Carvedilol 6.25 MG TAB PO SCH (20:46)
[2018-04-08] MEDS ORDERED: Pravastatin Sodium 40 MG TAB PO SCH (21:00)
[2018-04-08] MEDS ORDERED: Montelukast Sodium 10 mg Tablet PO SCH (21:00)
[2018-04-08] MEDS ORDERED: HumuLIN 70/30 (300 UNITS/3 ML VIAL) SC SCH (21:00)
--- NOTE | 2018-04-09 01:36 | CON ---
DATE OF CONSULTATION: SUBJECTIVE: The patient is a very pleasant 83-year-old woman who presented with recurrent chest discomfort. The patient has a long history of coronary artery disease. She has previously undergone coronary bypass graft surgery. The patient also has history of severe cardiomyopathy with placement of an automatic implantable cardiac defibrillator. The patient has known severe coronary artery disease with occluded left circumflex, saphenous vein graft to an OM, which was diffusely diseased and diseased in the right coronary graft. The patient was in her usual state of health when she presented with recurrent chest discomfort. The patient was thought to have evidence of an acute ST-elevation AL, admitted for further evaluation. The patient's chest pain subsequently resolved. She denies having any present chest discomfort. PAST MEDICAL HISTORY: Significant for; 1. Coronary artery disease. 2. Cardiomyopathy. 3. Hypertension. 4. Dyslipidemia. 5. Diabetes mellitus. PAST SURGICAL HISTORY: She had a coronary bypass surgery, back surgery, and cholecystectomy. SOCIAL HISTORY: Nonsmoker. MEDICATIONS: See nursing list. ALLERGIES: NO KNOWN DRUG ALLERGIES. REVIEW OF SYSTEMS: Ten-point system otherwise unremarkable. No history of easy bruising or bleeding. PHYSICAL EXAMINATION: GENERAL: Well-developed woman, in no acute distress. VITAL SIGNS: Blood pressure 166/70. NECK: No jugular venous distention. LUNGS: Clear to auscultation. HEART: Regular rate and rhythm with a normal S1 and S2 with no murmurs. ABDOMEN: Distended. EXTREMITIES: Showed no edema. VASCULAR: Radial pulses are 2+. LABORATORY RESULTS: Sodium 133, potassium 4.6, chloride 98, bicarbonate 23, BUN 16, creatinine 0.96, glucose 292. Troponin was 0.965. White blood count 8.6, hemoglobin 14.0, hematocrit 42.2, and platelets are 179. Her EKG revealed electronic atrial pacemaker and Q-waves suggestive of previous inferior infarct. IMPRESSION: 1. Small non-Q-wave myocardial infarction. 2. History of severe coronary artery disease, not easily amenable to revascularization. 3. History of coronary bypass surgery. 4. Hypertension. 5. Diabetes mellitus. This patient presented with chest pain with minimal elevation in her troponin. She is known to have diffuse coronary artery disease, not easily amenable to revascularization. At this time, would recommend increasing the dose of her Ranexa. We will continue the patient on her aspirin, Eliquis, and lipid-lowering medication. We will follow this patient with you through her hospitalization in my office. Job ID: [id number]
[2018-04-09] MEDS ORDERED: Aspirin 81 mg Enteric Coated Tablet PO SCH (09:00)
[2018-04-09] MEDS ORDERED: Lisinopril 2.5 MG TAB PO SCH ×2 (09:00→21:00)
[2018-04-09] MEDS ORDERED: Ezetimibe 10 MG TAB PO SCH (09:00)
[2018-04-09] MEDS ORDERED: Multivit, Therapeutic 1 TAB PO SCH (09:00)
[2018-04-09] MEDS ORDERED: HumuLIN 70/30 (300 UNITS/3 ML VIAL) SC SCH (09:00)
[2018-04-09] MEDS: Ferrous Sulfate 325 MG TAB PO SCH ×2 (09:16→17:47)
[2018-04-09] MEDS: Oxybutynin 5 MG TAB PO SCH (09:16)
[2018-04-09] MEDS: Calcium Carbonate + Vit D 1 TAB PO SCH ×2 (09:16→17:47)
[2018-04-09] MEDS: Apixaban 5 MG TAB PO SCH (09:16)
[2018-04-09] MEDS: Carvedilol 6.25 MG TAB PO SCH (09:22)
[2018-04-09 17:01] VITALS: BP 102/55; TEMP 98.7
[2018-04-09] MEDS ORDERED: Carvedilol 6.25 MG TAB PO SCH (21:00)
--- NOTE | 2018-04-10 00:40 | DIS ---
DATE OF ADMISSION: 04/07/2018 DATE OF DISCHARGE: 04/09/2018 ADMIT DIAGNOSES: 1. Chest pain with known nonoperable atherosclerotic coronary vascular disease. 2. Hypertension. 3. Type 1 diabetes. 4. Presumed myocardial infarction. DISCHARGE DIAGNOSES: 1. Chest pain with known nonoperable atherosclerotic coronary vascular disease. 2. Hypertension. 3. Type 1 diabetes. 4. Presumed myocardial infarction. 5. Zty-HM-qkzhfnnpz myocardial infarction. HOSPITAL COURSE: Patient is an 83-year-old female, patient of Dr. Neri Matthews who was having chest pain, felt a little bit different at this time go around. She has had numerous episodes of chest pain, almost yearly to more than yearly for the last many years. She has been told that she has no ability to have any procedures done due to the nature of her vessels and the nature of her disease. Her pain seemed a little bit more heavy than in the past, so she came on in. Initially, the EKG was interpreted as a STEMI. She was admitted after initial oral nitroglycerin in the ambulance, nitroglycerin paste in the ER. She was given Lovenox and then also started on the nitroglycerin drip in the ER, was awaiting an ICU bed. All her pain had resolved after the start of the nitroglycerin drip. She remained pain-free. Vital signs were stable. Systolic pressure in the low 100s. Cardiology was consulted. Dr. Novoa saw her, stated due to the nature of the laboratory results, her EKGs, and her past MIs effects on her EKGs, she actually has a non-STEMI by definition. He noted that her pressure began to rise. She never made it out of the ER to ICU due to unavailable beds, but when she was off the nitroglycerin drip, she needed this still in the house for hypertension control as her pressure went up to the 180s, so she was put upstairs and medicines were adjusted. Her Coreg was increased. Her lisinopril was made twice a day and oral Imdur was added to her regimen. At the time of discharge, her pressure remained less than 150 all day. At the time of discharge, her pressure was 103 systolic. She was asymptomatic, had no recurrence of any of the chest pain since arrival, so she was discharged to home. A prescription for the Imdur 30 was sent to her pharmacy. She was instructed to take her lisinopril twice a day and she is to resume her previous home medications including the Ranexa and the Eliquis and she was to follow up with Dr. Matthews later this week and to follow up with Dr. Kevin in 2 weeks. Job ID: [id number]
== END 2018-04-09 18:07 | disposition home or self-care (01) | DRG 281 ==
LOC: ERS 20:33 → ERHOLD 22:00 → 2NO 22:40
PROVIDERS: ADMIT Family Medicine; ATTEND Family Medicine
DX: I21.4 Non-ST elevation (NSTEMI) myocardial infarction (principal); I25.810 Atherosclerosis of coronary artery bypass graft(s) without angina pectoris; I42.9 Cardiomyopathy, unspecified; I25.10 Atherosclerotic heart disease of native coronary artery without angina pectoris; E10.9 Type 1 diabetes mellitus without complications; Z79.4 Long term (current) use of insulin; I10 Essential (primary) hypertension; E78.5 Hyperlipidemia, unspecified; Z79.82 Long term (current) use of aspirin; Z79.02 Long term (current) use of antithrombotics/antiplatelets; Z95.1 Presence of aortocoronary bypass graft; Z95.810 Presence of automatic (implantable) cardiac defibrillator
CPT/HCPCS: 36415; 36416; 71045; 80053; 82550; 83036; 84484; 85025; 93005; 96365; 96366; 96372; 96375; J1644; J1650; J1815

== ENCOUNTER 2018-05-19 18:52 | Observation (INO) | payer MEDICARE ==
[2018-05-19 19:18] LABS: #Eosinphils 0.1 thou/uL (0.0-0.7); #Lymphocytes 1.8 thou/uL (1.20-3.40); #Monocytes 0.5 thou/uL (0.11-0.59); #Neutrophils 4.3 thou/uL (1.40-6.50); %Basophils 0.2 % (0.0-1.0); %Eosinophils 1.2 % (0.0-10.0); %Monocytes 8.1 % (0.0-10.0); %Neutrophils 63.5 % (42.0-75.0); Hemoglobin 12.6 g/dL (12.0-16.0); Mean Corpuscular HGB CONC 33.7 g/dL (32.0-36.0); Mean Corpuscular Hemoglobin 32.2 pg (27.0-31.0); Mean Corpuscular Volume 95.7 fL (78.0-98.0); Platelet Count 168 thou/uL (130-400); RBC Distribution Width 11.8 % (11.5-14.5); White Blood Cell (WBC) Count 6.7 thou/uL (4.8-10.8)
[2018-05-19 19:31] LABS: ALT (SGPT) 10 U/L (8-55); AST (SGOT) 21 U/L (5-34); Albumin 3.5 g/dL (3.4-4.8); Alkaline Phosphatase 77 U/L (40-150); Anion Gap 14 mmol/L (10-20); BUN (Urea Nitrogen) 18 mg/dL (9.8-20.1); Bilirubin, Total 0.4 mg/dL (0.2-1.2); CK (CPK) 55 U/L (29-168); Calc. Creatinine Clearance 0 mL/min (70-130); Carbon Dioxide 24 mmol/L (23-31); Chloride 97 mmol/L (98-107); Estimated GFR-MDRD 51; Globulin 3.7 g/dL (2.4-3.5); Glucose 367 mg/dL (83-110); Lipase 10 U/L (8-78); Potassium 4.5 mmol/L (3.5-5.1); Protein, Total 7.2 g/dL (6.0-8.3); Sodium 130 mmol/L (136-145)
[2018-05-19] MEDS ORDERED: Metoprolol Tartrate 5 MG/5 ML VIAL ONE (19:52)
[2018-05-19] MEDS ORDERED: Ondansetron PF 4 MG/2 ML Vial ONE (19:52)
--- NOTE | 2018-05-19 20:06 | RAD ---
AP VIEW CHEST: 05/19/18 HISTORY: Myocardial infarction-STEMI. AP view chest is obtained on 05/19/18. Comparison made to previous exam from 04/07/18. FINDINGS/IMPRESSION: AP view chest demonstrates sternotomy wires seen. There is intracardiac defibrillator. Cardiomegaly s een. Pulmonary vascular congestion seen. Prominent diffuse interstitial markings seen compatible with interstitial edema or interstitial fibrotic changes not significantly changed since the previous exa m. There may be some increased pulmonary vascular congestion. No definite evidence of pulmonary edema seen at this time. POS: [facility]
[2018-05-19] MEDS ORDERED: Furosemide 40 MG/4 ML VIAL ONE (20:07)
[2018-05-19] MEDS ORDERED: Nitroglycerin 0.4 MG TAB 1 EACH ONE (20:07)
[2018-05-19] MEDS ORDERED: Ondansetron PF 4 MG/2 ML Vial IVP PRN (22:08)
[2018-05-19] MEDS ORDERED: Ondansetron ODT 4 MG TAB SL PRN (22:08)
[2018-05-19] MEDS ORDERED: Morphine 4 MG/ML VIAL SLOW IVP PRN ×2 (22:12→23:02)
[2018-05-19] MEDS ORDERED: Nitroglycerin 0.4 MG TAB (25 Tab Bottle) SL PRN ×2 (22:13→23:15)
[2018-05-19 22:37] VITALS: BMI 25.0
[2018-05-19 22:54] LABS: CKMB 7.3 ng/mL (0-6.6)
[2018-05-19] MEDS ORDERED: Dextrose 50% Abboject 50 ML SYRINGE IVP PRN (23:04)
[2018-05-19] MEDS ORDERED: HumaLOG 300 UNITS/3 ML VIAL SC PRN ×2 (23:04)
[2018-05-19] MEDS ORDERED: Dextrose 5% in Water 1,000 ML IV PRN (23:04)
[2018-05-19] MEDS ORDERED: Acetaminophen 325 MG TAB PO PRN (23:05)
[2018-05-19] MEDS ORDERED: Ondansetron ODT 4 MG TAB PO PRN (23:05)
[2018-05-19] MEDS ORDERED: cloNIDine 0.1 MG TAB PO PRN (23:05)
[2018-05-19] MEDS ORDERED: Ondansetron PF 4 MG/2 ML Vial SLOW IVP PRN (23:06)
[2018-05-19] MEDS ORDERED: Oxybutynin 5 MG TAB PO SCH (23:15)
[2018-05-19] MEDS ORDERED: Apixaban 2.5 MG TAB PO SCH (23:15)
[2018-05-19] MEDS ORDERED: HumuLIN 70/30 (300 UNITS/3 ML VIAL) SC SCH (23:15)
[2018-05-19] MEDS: Nitroglycerin 2% Ointment 1 INCH/1 GM Packet TOP SCH (23:36)
[2018-05-19] MEDS ORDERED: Nitroglycerin 2% Ointment 1 INCH/1 GM Packet TOP SCH (23:59)
[2018-05-20 01:49] LABS: CKMB 24.6 ng/mL (0-6.6)
[2018-05-20] MEDS ORDERED: Furosemide 40 MG/4 ML VIAL SLOW IVP SCH ×2 (06:00)
[2018-05-20] MEDS: Nitroglycerin 2% Ointment 1 INCH/1 GM Packet TOP SCH ×2 (06:09→12:28)
[2018-05-20] MEDS ORDERED: Carvedilol 6.25 MG TAB PO SCH (08:00)
[2018-05-20] MEDS ORDERED: Aspirin 325 MG TAB PO SCH (08:00)
[2018-05-20] MEDS ORDERED: Ferrous Sulfate 325 MG TAB PO SCH (08:00)
[2018-05-20] MEDS ORDERED: Calcium Carbonate + Vit D 1 TAB PO SCH (08:00)
[2018-05-20 08:03] LABS: CKMB 31.7 ng/mL (0-6.6)
[2018-05-20] MEDS ORDERED: Apixaban 2.5 MG TAB PO SCH (09:00)
[2018-05-20] MEDS ORDERED: HumuLIN 70/30 (300 UNITS/3 ML VIAL) SC SCH ×2 (09:00→21:00)
[2018-05-20] MEDS ORDERED: Ezetimibe 10 MG TAB PO SCH (09:00)
[2018-05-20] MEDS ORDERED: Multivit, Therapeutic 1 TAB PO SCH (09:00)
[2018-05-20] MEDS ORDERED: Oxybutynin 5 MG TAB PO SCH (09:00)
[2018-05-20] MEDS ORDERED: Montelukast Sodium 10 mg Tablet PO SCH (09:00)
[2018-05-20] MEDS ORDERED: Lisinopril 2.5 MG TAB PO SCH (09:00)
[2018-05-20 11:51] VITALS: BP 113/55; TEMP 97.8
--- NOTE | 2018-05-20 13:44 | SS ---
DATE OF ADMISSION: 05/19/2018 DATE OF DISCHARGE: 05/20/2018 PRIMARY CARE PHYSICIAN: Dr. Neri Matthews. CHIEF COMPLAINT: Chest pain. HISTORY OF PRESENT ILLNESS: This is an 83-year-old female, patient of Dr. Neri Matthews with a long history of end-stage coronary artery disease status post coronary bypass graft x2 with ischemic cardiomyopathy, presented to emergency department with onset of left-sided chest pain. The patient was recently admitted on April 07, 2018, with similar symptoms. Her Ranexa was increased at that time. She has been deemed nonoperable with her heart disease over the past several years. She ruled in for a non-Q-wave CT in March, but no interventions were necessary at that time. Her pain resolved and she was discharged home on a high dose of Ranexa. She was home over the past month and doing well until yesterday. She was in her usual state of health and she developed left-sided chest pain similar to her other. She gave herself her nitroglycerin, had minimal improvement and called EMS for evaluation. Upon EMS' arrival, they gave her 3 regular strength aspirins for her to chew. Her pain resolved immediately and was brought to the emergency department for further evaluation. In the emergency department, she had negative cardiac enzymes. Upon presenting there, she did have EKG changes that were suspicious for ST-elevation CT. Dr. Mayfield was consulted at that time and she reviewed her case. She was admitted for further evaluation. She eventually ruled in for an CT with a troponin peaking at 12.1. Discussed with Dr. Mayfield, who reviewed her case and again agreed with her continuing to be nonoperable and no interventions necessary. She was pain-free throughout her hospitalization. She was wanting to go home. She never had any shortness of breath. She did have some nausea on onset of her chest pain, but this resolved as well. She has good support at home and she was discharged home in good condition. PHYSICAL EXAMINATION: VITAL SIGNS: Temperature 97.9, pulse is 72 and regular, respirations 15, blood pressure 120/58, pulse ox is 98% on room air. GENERAL: She is awake and alert, in no acute distress. She is pleasant. HEENT: Her mucosa is moist. NECK: Supple. No bruit. HEART: Regular rate and rhythm with 2/6 systolic ejection murmur. LUNGS: Clear bilaterally. ABDOMEN: Soft. EXTREMITIES: No edema. No calf tenderness. LABORATORY DATA: Sodium 130, potassium 4.5, chloride 97, CO2 24, BUN and creatinine are 18 and 1.03. Serum glucose on admission was 367, now down to 193. AST and ALT are normal. Initial troponin was 0.019, next 0.561, next 4.7 and the last was 12.1. Chest x-ray showed no active disease and stable from her prior chest x-ray. PAST MEDICAL HISTORY: 1. Type 1 diabetes. 2. Hypertension. 3. Hyperlipidemia. 4. End-stage coronary disease. 5. Cardiomyopathy with reduced ejection fraction of less than 25%. ALLERGIES: NONE KNOWN. SOCIAL HISTORY: No smoking. No alcohol. Very supportive family who is nearby. REVIEW OF SYSTEMS: As per the history of present illness. She denies any recent fevers, chills, or recent illness. HEENT: Denies headache, visual or hearing changes. CARDIAC: As per the history of present illness. PULMONARY: Denies cough or hemoptysis. GI: Denies nausea, vomiting. NEUROLOGIC: No weakness, seizures. No falls. PRIOR DISCHARGE MEDICATIONS: Include: 1. Ranexa 500 mg b.i.d. 2. Pravastatin 80 mg daily. 3. Protonix 40 mg daily. 4. Oxybutynin 5 mg b.i.d. 5. Lisinopril 2.5 mg daily. 6. Isosorbide mononitrate 30 mg daily. 7. Humalog 75/25 mix 6 units in the morning, 10 units in the evening. 8. Lasix will be increased to 20 mg daily. 9. Iron sulfate 325 b.i.d. 10. Zetia 10 mg daily. 11. Eliquis 2.5 mg b.i.d. 12. Zetia 10 mg daily. 13. Singulair 10 mg daily. 14. Multivitamin one daily. FOLLOWUP INSTRUCTIONS: The patient to follow up with Dr. Matthews in one week and with Dr. Kevin in 1 to 2 weeks. Job ID: [id number]
[2018-05-20] MEDS ORDERED: Furosemide 20 MG TAB PO SCH (14:00)
[2018-05-20] MEDS ORDERED: Pravastatin Sodium 40 MG TAB PO SCH (21:00)
[2018-05-22] MEDS ORDERED: Aspirin 81 mg Enteric Coated Tablet PO SCH (09:00)
== END 2018-05-20 12:25 | disposition home or self-care (01) ==
LOC: ERS 18:52 → 2SW 20:19
PROVIDERS: ADMIT Family Medicine; ATTEND Family Medicine
DX: R07.9 Chest pain, unspecified (principal); I25.10 Atherosclerotic heart disease of native coronary artery without angina pectoris; I25.5 Ischemic cardiomyopathy; E10.9 Type 1 diabetes mellitus without complications; E78.5 Hyperlipidemia, unspecified; I25.2 Old myocardial infarction; Z95.1 Presence of aortocoronary bypass graft; Z79.01 Long term (current) use of anticoagulants; Z79.82 Long term (current) use of aspirin; Z79.899 Other long term (current) drug therapy
CPT/HCPCS: 36415; 36416; 71045; 80053; 82550; 82553; 83690; 83880; 84484; 85025; 86850; 86900; 86901; 90471; 90662; 93005; 94760; 96361; 96374; 96375; 96376; G0008; G0378; J1815; J1940; J2405

== ENCOUNTER 2018-07-23 12:07 | Emergency (ER) | payer MEDICARE ==
--- NOTE | 2018-07-23 13:04 | RAD ---
EXAM: XR Wrist 3 Lt View STANDARD PROVIDED CLINICAL HISTORY: Pain FINDINGS: There is no evidence for fracture or other acute osseous abnormality. Alignment appears anatomic. Lucia nt spaces appear preserved. Vascular calcifications are seen. Chondrocalcinosis is noted. IMPRESSION: No evidence for an acute osseous abnormality. If there is persistent clinical concern, conservative m anagement and follow-up imaging advised.
== END 2018-07-23 14:02 | disposition home or self-care (01) ==
LOC: ERS 12:07
DX: M25.532 Pain in left wrist (principal); I25.10 Atherosclerotic heart disease of native coronary artery without angina pectoris; E11.9 Type 2 diabetes mellitus without complications; I10 Essential (primary) hypertension; I25.2 Old myocardial infarction

== ENCOUNTER 2018-08-01 01:26 | Inpatient (IN) | payer MEDICARE ==
[2018-08-01 01:49] LABS: #Basophils 0.1 thou/uL (0.0-0.2); #Eosinphils 0.1 thou/uL (0.0-0.7); #Lymphocytes 1.5 thou/uL (1.20-3.40); #Monocytes 0.5 thou/uL (0.11-0.59); #Neutrophils 2.8 thou/uL (1.40-6.50); %Basophils 1.2 % (0.0-1.0); %Eosinophils 1.3 % (0.0-10.0); %Lymphocytes 30.1 % (21.0-51.0); %Monocytes 10.5 % (0.0-10.0); Hemoglobin 12.6 g/dL (12.0-16.0); Mean Corpuscular HGB CONC 34.2 g/dL (32.0-36.0); Mean Corpuscular Hemoglobin 32.9 pg (27.0-31.0); Mean Corpuscular Volume 96.1 fL (78.0-98.0); Mean Platelet Volume 8.7 fL (7.4-10.4); Platelet Count 168 thou/uL (130-400); RBC Distribution Width 12.1 % (11.5-14.5); Red Blood Cell (RBC) Count 3.85 mill/uL (4.20-5.40); White Blood Cell (WBC) Count 4.8 thou/uL (4.8-10.8)
[2018-08-01 01:59] LABS: ALT (SGPT) 13 U/L (8-55); AST (SGOT) 21 U/L (5-34); Albumin 3.8 g/dL (3.4-4.8); Alkaline Phosphatase 78 U/L (40-150); Anion Gap 13 mmol/L (10-20); BUN (Urea Nitrogen) 20 mg/dL (9.8-20.1); Bilirubin, Total 0.5 mg/dL (0.2-1.2); Calc. Creatinine Clearance 0 mL/min (70-130); Calcium 9.5 mg/dL (7.8-10.44); Carbon Dioxide 26 mmol/L (23-31); Chloride 95 mmol/L (98-107); Estimated GFR-MDRD 49; Globulin 3.7 g/dL (2.4-3.5); Glucose 326 mg/dL (83-110); Potassium 4.2 mmol/L (3.5-5.1); Protein, Total 7.5 g/dL (6.0-8.3); Sodium 130 mmol/L (136-145)
[2018-08-01 02:04] LABS: INR-International Normal Ratio 1.1; PTT 34.3 SEC (22.9-36.1); Prothrombin Time 14.7 SEC (12.0-14.7)
[2018-08-01 02:56] LABS: CKMB 2.1 ng/mL (0-6.6)
[2018-08-01 07:47] LABS: Troponin I 0.593 ng/mL (< 0.028)
[2018-08-01] MEDS ORDERED: Acetaminophen 325 MG TAB PO PRN (08:16)
[2018-08-01] MEDS ORDERED: Ondansetron ODT 4 MG TAB PO PRN (08:16)
--- NOTE | 2018-08-01 08:19 | RAD ---
PORTABLE CHEST ONE VIEW: 08/01/2018 1:42 a.m. HISTORY: Chest pain. COMPARISON: 05/19/2018 FINDINGS: Changes of median sternotomy are again seen. Left-sided AICD remains in place. Heart size is border line. Lungs are well expanded with mild pulmonary vascular congestion. No lobar consolidation, pneu mothoraces, or large effusions seen. There are postop changes in the lumbar spine. POS: [facility]
[2018-08-01] MEDS ORDERED: Nitroglycerin 0.4 MG TAB (25 Tab Bottle) SL PRN (08:20)
[2018-08-01] MEDS: HumuLIN 70/30 (300 UNITS/3 ML VIAL) SC SCH (10:07)
[2018-08-01] MEDS: Apixaban 2.5 MG TAB PO SCH ×2 (10:19→22:55)
[2018-08-01] MEDS: Carvedilol 6.25 MG TAB PO SCH ×2 (10:19→19:49)
[2018-08-01] MEDS: Ferrous Sulfate 325 MG TAB PO SCH (10:29)
[2018-08-01] MEDS: Ezetimibe 10 MG TAB PO SCH (10:29)
[2018-08-01] MEDS: Furosemide 20 MG TAB PO SCH (10:30)
[2018-08-01] MEDS: Lisinopril 2.5 MG TAB PO SCH (10:30)
[2018-08-01] MEDS: Oxybutynin 5 MG TAB PO SCH ×2 (10:30→19:50)
[2018-08-01] MEDS: Multivit, Therapeutic 1 TAB PO SCH (10:30)
[2018-08-01] MEDS: Montelukast Sodium 10 mg Tablet PO SCH (10:30)
[2018-08-01] MEDS: Isosorbide Mononitrate 20 MG TAB PO SCH (10:30)
[2018-08-01] MEDS ORDERED: Dextrose 50% Abboject 50 ML SYRINGE SLOW IVP PRN (12:54)
[2018-08-01] MEDS ORDERED: Dextrose 5% in Water 1,000 ML IV PRN (12:54)
[2018-08-01 13:41] VITALS: BMI 24.4
[2018-08-01] MEDS: Atorvastatin Calcium 20 MG TAB PO SCH (19:49)
[2018-08-01] MEDS: Insulin Regular 300 UNITS/3 ML VIAL SC PRN (23:04)
[2018-08-02 07:11] LABS: #Eosinphils 0.1 thou/uL (0.0-0.7); #Lymphocytes 1.7 thou/uL (1.20-3.40); #Monocytes 0.5 thou/uL (0.11-0.59); %Basophils 0.5 % (0.0-1.0); %Eosinophils 1.9 % (0.0-10.0); %Monocytes 10.7 % (0.0-10.0); %Neutrophils 46.9 % (42.0-75.0); Mean Corpuscular HGB CONC 34.5 g/dL (32.0-36.0); Mean Corpuscular Hemoglobin 33.1 pg (27.0-31.0); Mean Corpuscular Volume 95.9 fL (78.0-98.0); Mean Platelet Volume 8.6 fL (7.4-10.4); Platelet Count 145 thou/uL (130-400); RBC Distribution Width 12.2 % (11.5-14.5); Red Blood Cell (RBC) Count 3.34 mill/uL (4.20-5.40); White Blood Cell (WBC) Count 4.3 thou/uL (4.8-10.8)
[2018-08-02 07:37] LABS: Anion Gap 12 mmol/L (10-20); BUN (Urea Nitrogen) 17 mg/dL (9.8-20.1); Calc. Creatinine Clearance 46 mL/min (70-130); Calcium 8.8 mg/dL (7.8-10.44); Carbon Dioxide 28 mmol/L (23-31); Chloride 96 mmol/L (98-107); Estimated GFR-MDRD 61; Glucose 124 mg/dL (83-110); Potassium 4.5 mmol/L (3.5-5.1); Sodium 131 mmol/L (136-145)
--- NOTE | 2018-08-02 07:54 | HP ---
HISTORY OF PRESENT ILLNESS: The patient is an 83-year-old female with known history of atherosclerotic coronary artery disease. It is nonoperable, also noninterventional. She is followed by Dr. Kevin. She presented to emergency room complaining of chest pain, onset yesterday and early this morning. She noted this became much more severe associated with some short of breath. She did take some nitroglycerin, found some relief, was brought to the emergency room. Her EKG did not reveal any evidence of any acute changes. However, troponins have been noted to be mildly elevated. At this time, she states she is currently not have any pain or discomfort. She has had a history of multiple episodes of admissions for chest pain. She has had a most recent admission in March for a non-ST segment elevated CO. As noted, she has known history of atherosclerotic coronary artery disease that is nonoperable nor noninterventional. Otherwise, she has no medical complaint. ALLERGIES: SHE HAS NO KNOWN ALLERGIES. CURRENT MEDICATIONS: Have been reviewed and noted in the chart. She is currently maintained on; 1. Ranexa. 2. Pravastatin. 3. Protonix. 4. Oxybutynin. 5. Lisinopril. 6. Isosorbide mononitrate. 7. Insulin. 8. Lasix. 9. Ferrous sulfate. 10. Zetia. 11. Plavix. 12. Coreg. 13. Citracal. 14. Baby aspirin. PAST MEDICAL HISTORY: Positive for type 1 diabetes mellitus, hypertension, and hyperlipidemia. PAST SURGICAL HISTORY: Positive coronary artery bypass graft. She also has defibrillator. She has had a cholecystectomy in the past. SOCIAL AND PERSONAL HISTORY: She is a . She does not smoke nor does he drink alcohol. PHYSICAL EXAMINATION: VITAL SIGNS: Temperature 98.6, blood pressure 110/70, pulse 84 and regular, and O2 saturations 98%. GENERAL: She is alert, active, in no acute distress. HEENT: Unremarkable. NECK: Supple. Full range of motion. No masses. No carotid bruits auscultated. Thyroid is midline without thyromegaly or thyroid masses. LUNGS: Clear. HEART: Reveals a regular rate and rhythm. No murmurs, gallops, or rubs. ABDOMEN: Soft and nontender. Bowel sounds are present and active. No hepatosplenomegaly. EXTREMITIES: No clubbing, edema, or cyanosis. LABORATORY DATA: Hemoglobin is 12.6, hematocrit 36.9, and white blood count 4.8. Sodium 130, potassium 4.2, chloride 95, CO2 of 26, BUN 13, and creatinine 1.06. Troponin, there was an elevated troponin in drawn #3 at 0.593. IMPRESSION: 1. Probable non-ST segment elevated myocardial infarction. 2. History of atherosclerotic coronary artery disease. 3. Type 1 diabetes mellitus. PLAN: The patient will be admitted as soon as bed is available. She will be maintained on her current medications. We will consult Dr. Kevin for further treatment recommendations. Per the patient's request and family discussion, the patient wishes to be a DNR institution. Job ID: [id number]
[2018-08-02] MEDS ORDERED: Aspirin 81 mg Enteric Coated Tablet PO SCH (09:00)
[2018-08-02] MEDS ORDERED: Isosorbide Mononitrate 20 MG TAB PO SCH (09:00)
[2018-08-02] MEDS: Apixaban 2.5 MG TAB PO SCH ×2 (09:51→20:42)
[2018-08-02] MEDS: Calcium Carbonate + Vit D 1 TAB PO SCH ×3 (09:51→19:46)
[2018-08-02] MEDS: Carvedilol 6.25 MG TAB PO SCH ×2 (09:51→20:42)
[2018-08-02] MEDS: Ezetimibe 10 MG TAB PO SCH (09:51)
[2018-08-02] MEDS: HumuLIN 70/30 (300 UNITS/3 ML VIAL) SC SCH (09:52)
[2018-08-02] MEDS: Ferrous Sulfate 325 MG TAB PO SCH (09:52)
[2018-08-02] MEDS: Isosorbide Mononitrate 20 MG TAB PO SCH (09:52)
[2018-08-02] MEDS: Furosemide 20 MG TAB PO SCH (09:52)
[2018-08-02] MEDS: Multivit, Therapeutic 1 TAB PO SCH (09:53)
[2018-08-02] MEDS: Montelukast Sodium 10 mg Tablet PO SCH (09:53)
[2018-08-02] MEDS: Oxybutynin 5 MG TAB PO SCH ×2 (09:53→20:42)
[2018-08-02] MEDS: Lisinopril 2.5 MG TAB PO SCH (09:53)
[2018-08-02] MEDS: Insulin Regular 300 UNITS/3 ML VIAL SC PRN ×2 (11:21→16:58)
--- NOTE | 2018-08-02 18:35 | PRG ---
DATE OF SERVICE: 08/02/2018 SUBJECTIVE: Ms. Gomez is doing well. No complaints. No further chest pain. OBJECTIVE: VITAL SIGNS: Blood pressure is 131/60 and pulse 70. LUNGS: Clear. CARDIAC: Normal S1 and normal S2. ABDOMEN: Soft and nontender. EXTREMITIES: No edema. ASSESSMENT: 1. Status post non-ST elevation myocardial infarction related to small vessel distal coronary atherosclerosis. 2. Peak troponin of 0.593. PLAN: Home tomorrow morning on the same medicine that she came in on. No changes to this point. Job ID: [id number]
[2018-08-02] MEDS: Atorvastatin Calcium 20 MG TAB PO SCH (20:42)
--- NOTE | 2018-08-03 00:07 | PRG ---
DATE OF SERVICE: 08/02/2018 SUBJECTIVE: Ms. Gomez is resting well. She has had no further chest pain or shortness of breath. PHYSICAL EXAMINATION: VITAL SIGNS: Temperature 98.5, BP 131/63. LUNGS: Clear. HEART: Reveals a regular rate and rhythm. No murmurs, gallops, or rubs. LABORATORY DATA: Hemoglobin 11.0, hematocrit 32.0. Blood sugars adequately controlled. IMPRESSION: Acute myocardial infarction, non ST-segment elevated myocardial infarction, manifested by elevated troponin to 0.5. PLAN: Continue current resting treatment. The patient basically has no procedural indications due to the fact that she has been evaluated by Cardiology previously and no procedures can be done to help with this case. Job ID: [id number]
[2018-08-03 07:25] VITALS: BP 119/59; TEMP 97.7
--- NOTE | 2018-08-03 08:02 | PRG ---
DATE OF SERVICE: 08/03/2018 SUBJECTIVE: Ms. Gomez is doing well. She is resting comfortably. She did have episode of chest pain last night that she did not report. She did not receive any medications. She reports she is pain-free at this time. PHYSICAL EXAMINATION: VITAL SIGNS: Temperature is 97.7 and blood pressure 119/59. LUNGS: Are clear. HEART: Reveals a regular rate and rhythm. No murmurs, gallops, or rubs. EXTREMITIES: No clubbing, edema, or cyanosis. IMPRESSION: 1. Non ST-segment elevated myocardial infarction. 2. History of type 1 diabetes. PLAN: The patient is essentially stable at this time. She can be discharged home. There is no cardiac intervention that can be performed for her at this time. The patient has verbalized understanding, wishes to be discharged. Job ID: [id number]
[2018-08-03] MEDS: Calcium Carbonate + Vit D 1 TAB PO SCH (08:14)
[2018-08-03] MEDS: Apixaban 2.5 MG TAB PO SCH (08:15)
[2018-08-03] MEDS: Carvedilol 6.25 MG TAB PO SCH (08:15)
[2018-08-03] MEDS: Furosemide 20 MG TAB PO SCH (08:16)
[2018-08-03] MEDS: Ezetimibe 10 MG TAB PO SCH (08:16)
[2018-08-03] MEDS: Ferrous Sulfate 325 MG TAB PO SCH (08:16)
[2018-08-03] MEDS: HumuLIN 70/30 (300 UNITS/3 ML VIAL) SC SCH (08:17)
[2018-08-03] MEDS: Isosorbide Mononitrate 20 MG TAB PO SCH (08:17)
[2018-08-03] MEDS: Oxybutynin 5 MG TAB PO SCH (08:18)
[2018-08-03] MEDS: Insulin Regular 300 UNITS/3 ML VIAL SC PRN (08:18)
[2018-08-03] MEDS: Multivit, Therapeutic 1 TAB PO SCH (08:18)
[2018-08-03] MEDS: Montelukast Sodium 10 mg Tablet PO SCH (08:18)
[2018-08-03] MEDS: Lisinopril 2.5 MG TAB PO SCH (08:18)
== END 2018-08-03 10:35 | disposition home or self-care (01) | DRG 282 ==
LOC: ERS 01:26 → OBSVTOIN 03:15 → ERHOLD 03:15 → 2SW 13:20 → 2NO 21:31
PROVIDERS: ADMIT Family Medicine; ATTEND Family Medicine
DX: I21.4 Non-ST elevation (NSTEMI) myocardial infarction (principal); I25.10 Atherosclerotic heart disease of native coronary artery without angina pectoris; I25.2 Old myocardial infarction; Z66 Do not resuscitate; I10 Essential (primary) hypertension; E78.5 Hyperlipidemia, unspecified; E10.9 Type 1 diabetes mellitus without complications; Z95.1 Presence of aortocoronary bypass graft; Z79.01 Long term (current) use of anticoagulants; Z79.82 Long term (current) use of aspirin; Z79.899 Other long term (current) drug therapy; Z90.49 Acquired absence of other specified parts of digestive tract
CPT/HCPCS: 36415; 36416; 71045; 80048; 80053; 82553; 84484; 85025; 85610; 85730; 93005; J1815

== ENCOUNTER 2018-11-28 18:16 | Emergency (ER) | payer MEDICARE ==
--- NOTE | 2018-11-28 19:12 | RAD ---
RADIOGRAPH CHEST 1 VIEW: DATE: 11/28/2018 HISTORY: 83-year-old female with chest pain FINDINGS: There are no airspace densities, pulmonary edema, pneumothorax, or cardiomegaly. The lateral costophr enic angles are sharp. Sternotomy wires. Left subclavian AICD. IMPRESSION: 1. No acute cardiopulmonary findings. 2. Automatic implantable cardioverter-defibrillator. 3. Evidence of previous open-heart surgery.
[2018-11-28 19:24] LABS: #Eosinphils 0.1 thou/uL (0.0-0.7); #Lymphocytes 1.4 thou/uL (1.20-3.40); #Monocytes 0.5 thou/uL (0.11-0.59); #Neutrophils 2.5 thou/uL (1.40-6.50); %Basophils 0.5 % (0.0-1.0); %Eosinophils 1.4 % (0.0-10.0); %Lymphocytes 31.8 % (21.0-51.0); %Monocytes 10.6 % (0.0-10.0); %Neutrophils 55.7 % (42.0-75.0); Hemoglobin 11.9 g/dL (12.0-16.0); Mean Corpuscular HGB CONC 34.3 g/dL (32.0-36.0); Mean Corpuscular Hemoglobin 32.9 pg (27.0-31.0); Mean Corpuscular Volume 96.1 fL (78.0-98.0); Platelet Count 129 thou/uL (130-400); RBC Distribution Width 12.6 % (11.5-14.5); White Blood Cell (WBC) Count 4.4 thou/uL (4.8-10.8)
[2018-11-28] MEDS ORDERED: Nitroglycerin 0.4 MG TAB 1 EACH ONE (19:25)
[2018-11-28] MEDS ORDERED: Aspirin 325 MG TAB ONE (19:25)
[2018-11-28 19:47] LABS: ALT (SGPT) 11 U/L (8-55); AST (SGOT) 20 U/L (5-34); Albumin 3.9 g/dL (3.4-4.8); Alkaline Phosphatase 51 U/L (40-150); Anion Gap 13 mmol/L (10-20); BUN (Urea Nitrogen) 16 mg/dL (9.8-20.1); Bilirubin, Total 0.6 mg/dL (0.2-1.2); Calc. Creatinine Clearance 0 mL/min (70-130); Calcium 9.6 mg/dL (7.8-10.44); Carbon Dioxide 27 mmol/L (23-31); Chloride 98 mmol/L (98-107); Estimated GFR-MDRD 47; Globulin 3.2 g/dL (2.4-3.5); Glucose 251 mg/dL (83-110); Potassium 4.6 mmol/L (3.5-5.1); Protein, Total 7.1 g/dL (6.0-8.3); Sodium 133 mmol/L (136-145)
[2018-11-28] MEDS ORDERED: Acetaminophen 500 MG TAB ONE (20:03)
--- NOTE | 2018-12-02 13:12 | EKG ---
Test Reason : Blood Pressure : / mmHG Vent. Rate : 081 BPM Atrial Rate : 078 BPM P-R Int : 000 ms QRS Dur : 104 ms QT Int : 380 ms P-R-T Axes : 000 001 153 degrees QTc Int : 441 ms Suspect unspecified pacemaker failure Atrial fibrillation Inferior infarct , age undetermined Anterolateral infarct , age undetermined Abnormal ECG Confirmed by KRISTA GONSALEZ ([id number]), newspaper photo editor ROSHAN BROWNING ([id number]) on 12/02/2018 1:12:31 PM Referred By: Confirmed By:KRISTA GONSALEZ
== END 2018-11-28 20:20 | disposition home or self-care (01) ==
LOC: ERS 18:16
DX: I20.9 Angina pectoris, unspecified (principal); I10 Essential (primary) hypertension; E11.9 Type 2 diabetes mellitus without complications; I25.2 Old myocardial infarction; Z79.899 Other long term (current) drug therapy
CPT/HCPCS: 71045; 80053; 84484; 85025; 93005

== ENCOUNTER 2019-01-22 07:15 | Inpatient (IN) | payer MEDICARE ==
[2019-01-22 08:01] LABS: #Lymphocytes 1.6 thou/uL (1.20-3.40); #Monocytes 0.7 thou/uL (0.11-0.59); #Neutrophils 5.4 thou/uL (1.40-6.50); %Basophils 0.4 % (0.0-1.0); %Eosinophils 0.2 % (0.0-10.0); %Monocytes 9.2 % (0.0-10.0); %Neutrophils 70.2 % (42.0-75.0); Hemoglobin 13.5 g/dL (12.0-16.0); Mean Corpuscular HGB CONC 33.9 g/dL (32.0-36.0); Mean Corpuscular Hemoglobin 32.6 pg (27.0-31.0); Mean Corpuscular Volume 96.3 fL (78.0-98.0); Mean Platelet Volume 9.2 fL (7.4-10.4); Platelet Count 171 thou/uL (130-400); RBC Distribution Width 12.1 % (11.5-14.5); Red Blood Cell (RBC) Count 4.13 mill/uL (4.20-5.40); White Blood Cell (WBC) Count 7.7 thou/uL (4.8-10.8)
--- NOTE | 2019-01-22 08:05 | RAD ---
PORTABLE CHEST 1 VIEW: Date: 01/22/19 Time: 0747 hours HISTORY: Chest pain. FINDINGS/IMPRESSION: Comparison made with exam of 11/28/18. Changes of median sternotomy again seen. Left-sided pacemaker device remains in place. The heart size is normal. There is mild pulmonary vascular congestion. No lobar consolidation, pneumothoraces, or l arge effusions are seen. There are postop changes in the spine. An IVC filter is present. POS: OFF
[2019-01-22 08:10] LABS: INR-International Normal Ratio 1.3; Prothrombin Time 15.7 SEC (12.0-14.7)
[2019-01-22 08:11] LABS: PTT 35.9 SEC (22.9-36.1)
[2019-01-22 08:26] LABS: ALT (SGPT) 12 U/L (8-55); AST (SGOT) 21 U/L (5-34); Albumin 3.9 g/dL (3.4-4.8); Alkaline Phosphatase 62 U/L (40-110); Anion Gap 16 mmol/L (10-20); BUN (Urea Nitrogen) 18 mg/dL (9.8-20.1); Bilirubin, Total 1.2 mg/dL (0.2-1.2); Calc. Creatinine Clearance 0 mL/min (70-130); Calcium 9.5 mg/dL (7.8-10.44); Carbon Dioxide 24 mmol/L (23-31); Chloride 95 mmol/L (98-107); Estimated GFR-MDRD 51; Globulin 3.3 g/dL (2.4-3.5); Glucose 331 mg/dL (83-110); Potassium 4.8 mmol/L (3.5-5.1); Protein, Total 7.2 g/dL (6.0-8.3); Sodium 130 mmol/L (136-145)
[2019-01-22 09:06] LABS: CKMB 1.5 ng/mL (0-6.6)
[2019-01-22] MEDS ORDERED: Furosemide 20 MG/2 ML VIAL ONE (09:08)
[2019-01-22] MEDS ORDERED: Nitroglycerin 2% Ointment 1 INCH/1 GM Packet ONE (09:29)
[2019-01-22] MEDS ORDERED: Furosemide 40 MG/4 ML VIAL SLOW IVP SCH ×2 (11:15→18:00)
[2019-01-22] MEDS ORDERED: Furosemide 40 MG/4 ML VIAL ONE (11:21)
[2019-01-22 11:56] LABS: Troponin I 0.792 ng/mL (< 0.028)
[2019-01-22] MEDS ORDERED: Senokot S 8.6-50 MG TAB PO PRN (12:54)
[2019-01-22] MEDS ORDERED: Guaifenesin DM 100-10/5 ML UDCUP PO PRN (12:54)
[2019-01-22] MEDS ORDERED: HumaLOG 300 UNITS/3 ML VIAL SC PRN (12:54)
[2019-01-22] MEDS ORDERED: Dextrose 50% Abboject 50 ML SYRINGE SLOW IVP PRN (12:54)
[2019-01-22] MEDS ORDERED: Acetaminophen 325 MG TAB PO PRN (12:54)
[2019-01-22] MEDS ORDERED: Bisacodyl 10 MG SUPP PR PRN (12:54)
[2019-01-22] MEDS ORDERED: Dextrose 5% in Water 1,000 ML IV PRN (12:54)
[2019-01-22] MEDS: Furosemide 40 MG/4 ML VIAL SLOW IVP SCH (14:41)
[2019-01-22 17:48] VITALS: BMI 24.0
[2019-01-22] MEDS ORDERED: Furosemide 40 MG TAB PO SCH (18:00)
[2019-01-22] MEDS ORDERED: Morphine 2 MG/ML SYRINGE SLOW IVP PRN (19:26)
--- NOTE | 2019-01-22 20:41 | HP ---
REASON FOR ADMISSION: Acute respiratory failure with hypoxia, CHF exacerbation , and type 2 OH. HISTORY OF PRESENTING ILLNESS: The patient gives history of not able to sleep from last 2 days. She developed right shoulder pain on Tuesday. She could not sleep on right side which is her favorable side. She also developed chest discomfort, which got resolved early this morning. She tried various ways to lie down, which she could not. She tried 2 tablets of nitroglycerin sublingual, which did not help. Finally, she called EMS and the patient was brought here. Has some dry cough. No fever. She ambulates with a walker. Currently, has no chest pain, but her shortness of breath. She has orthopnea, but no PND. PAST MEDICAL AND SURGICAL HISTORY: History of coronary artery disease, which is inoperable, hypertension, dyslipidemia, atrial fibrillation, diabetes mellitus type 1, history of CABG, AICD, cholecystectomy, back surgery x4, and surgery on right femur. CURRENT MEDICATIONS: The patient is on; 1. Eliquis 2.5 mg twice daily. 2. Ferrous sulfate 325 mg p.o. daily. 3. Ranexa 500 mg p.o. twice daily. 4. NovoLog 70 36 units in a.m. and 10 units q.p.m. 5. Lasix 20 mg on Tuesday, Tuesday, and Tuesday. 6. Pravastatin 80 mg p.o. daily. 7. Pantoprazole 40 mg p.o. daily. 8. Lisinopril 2.5 mg twice daily. 9. Coreg 6.25 mg twice daily. 10. Oxybutynin 5 mg twice daily. 11. Zetia 10 mg daily. 12. Aspirin 81 mg 3 times a week. 13. Imdur 30 mg p.o. daily. ALLERGIES: NO KNOWN DRUG ALLERGIES. PERSONAL HISTORY: Does not abuse alcohol or drugs. No history of smoking. FAMILY HISTORY: She does not know much about her parents. Her father left her mom early in her life and she moved from [place] to [place] at the [place] area. This happened when she was 5 years old. CODE STATUS: Full. Power of admitted attorneys is her daughter, Ms. Alyssa Sprague or son-in-law, Mr. CURRY. REVIEW OF SYSTEMS: CONSTITUTIONAL: Negative for weight loss or gain, ability to conduct usual activities. SKIN: Negative for rash, itching. EYES: Negative for double vision, pain. ENT/MOUTH: Negative for nose bleeding, neck stiffness, pain, tenderness. CARDIOVASCULAR: Negative for palpitations, dyspnea on exertion, orthopnea. RESPIRATORY: Negative for shortness of breath, wheezing, cough, hemoptysis, fever or night sweats. GASTROINTESTINAL: Negative for poor appetite, abdominal pain, heartburn, nausea , vomiting, constipation, or diarrhea. GENITOURINARY: Negative for urgency, frequency, dysuria, nocturia. MUSCULOSKELETAL: Negative for pain, swelling. NEUROLOGIC/PSYCHIATRIC: Negative for anxiety, depression. ALLERGY/IMMUNOLOGIC: Negative for skin rash, bleeding tendency. PHYSICAL EXAMINATION: GENERAL: The patient is an 83-year-old female, who is currently in mild to moderate respiratory distress. VITAL SIGNS: Blood pressure 140/80, pulse 84 per minute, respiratory rate 20 per minute, temperature 98 degrees rectal, and saturating 94% on 2 L nasal cannula. NECK: Supple. No elevated JVD. HEENT: Eyes; extraocular muscles intact. Pupils are reacting to light. Oral cavity, mucous membranes mucous membranes are dry. No exudates or congestion And S2 heard. Regular rhythm. RESPIRATORY: Air entry 1+ bilateral. Scattered rales plus in the infrascapular area. ABDOMEN: Soft bowel sounds heard. No tenderness, rigidity, or guarding. EXTREMITIES: No peripheral edema or calf tenderness vascular system peripheral pulses 1+ bilateral no ischemic ulcerations or gangrene central nervous system no gross focal deficits noted the patient is alert awake oriented well psychiatric System patient's mood is euthymic. No hallucinations or delusions. LABORATORY DATA: White count of 7.7, H and H 13 and 39, platelet count is 171, with 70% neutrophils. PT, INR, PTT 15, 1.3, and 35. Sodium 130, serum bicarb 24, BUN 18, creatinine 1.0, and potassium is 4.8. Liver enzymes within normal limits. Albumin 3.9. Troponin I is peaking up to 0.79, CK-MB 1.5. BNP 985. Chest x- ray done shows pulmonary vascular congestion. EKG done shows sinus rhythm at 90 beats per minute. Q-waves seen in inferior wall, anterior wall, and T inversion seen in lead I, aVL and V5 and V6. CLINICAL IMPRESSION AND PLAN: The patient will be admitted to telemetry for acute on chronic congestive heart failure exacerbation with diastolic dysfunction, non ST elevation myocardial infarction with known history of coronary artery disease, which is inoperable. She is maximized on medications for her coronary artery disease. We will continue her Eliquis, aspirin, Lipitor, Coreg, Imdur, and Ranexa as before. The patient will be on Lasix 40 mg IV at 6 a.m. and 2 p.m. She has already gotten 2 doses of Lasix today. We will continue Humulin 70 36 units q.a.m. and 10 units at bedtime, DuoNeb q.6 hourly as well. Echo with 2D Doppler for left ventricular function and Cardiology consultation with Dr. Kevin will be obtained. The patient's overall prognosis is guarded given inoperable coronary artery disease with current non ST elevation myocardial infarction. She will be on aspirin 81 mg daily as well. We will continue to closely monitor her on telemetry. The pacemaker printout will also be obtained. It is unclear if her pacemaker is working correctly. Job ID: [id number] MTDD
[2019-01-22] MEDS: HumuLIN 70/30 (300 UNITS/3 ML VIAL) SC SCH (21:05)
[2019-01-22] MEDS: Apixaban 2.5 MG TAB PO SCH (21:06)
[2019-01-22] MEDS: Carvedilol 6.25 MG TAB PO SCH (21:06)
[2019-01-22] MEDS: Atorvastatin Calcium 20 MG TAB PO SCH (21:06)
[2019-01-22] MEDS: Oxybutynin 5 MG TAB PO SCH (21:06)
[2019-01-22 21:18] LABS: Troponin I 5.337 ng/mL (< 0.028)
[2019-01-22] MEDS ORDERED: Furosemide 20 MG/2 ML VIAL SLOW IVP SCH (21:30)
[2019-01-23] MEDS: Furosemide 40 MG/4 ML VIAL SLOW IVP SCH ×2 (05:43→14:08)
[2019-01-23 06:12] LABS: #Basophils 0.1 thou/uL (0.0-0.2); #Lymphocytes 1.6 thou/uL (1.20-3.40); #Monocytes 0.9 thou/uL (0.11-0.59); #Neutrophils 6.7 thou/uL (1.40-6.50); %Basophils 0.6 % (0.0-1.0); %Eosinophils 0.4 % (0.0-10.0); %Lymphocytes 16.8 % (21.0-51.0); %Monocytes 10.2 % (0.0-10.0); Hemoglobin 12.8 g/dL (12.0-16.0); Mean Corpuscular HGB CONC 33.5 g/dL (32.0-36.0); Mean Corpuscular Hemoglobin 32.4 pg (27.0-31.0); Mean Corpuscular Volume 96.6 fL (78.0-98.0); Mean Platelet Volume 8.9 fL (7.4-10.4); Platelet Count 153 thou/uL (130-400); Red Blood Cell (RBC) Count 3.96 mill/uL (4.20-5.40); White Blood Cell (WBC) Count 9.2 thou/uL (4.8-10.8)
[2019-01-23 06:39] LABS: Anion Gap 15 mmol/L (10-20); BUN (Urea Nitrogen) 24 mg/dL (9.8-20.1); Calc. Creatinine Clearance 38 mL/min (70-130); Calcium 8.9 mg/dL (7.8-10.44); Carbon Dioxide 24 mmol/L (23-31); Chloride 96 mmol/L (98-107); Estimated GFR-MDRD 51; Glucose 153 mg/dL (83-110); Magnesium 1.6 mg/dL (1.6-2.6); Potassium 4.3 mmol/L (3.5-5.1); Sodium 131 mmol/L (136-145)
[2019-01-23] MEDS ORDERED: Magnesium 2 GM/50 ML 2 GM in Premix Bag 1 BAG IVPB SCH ×2 (08:45→10:45)
[2019-01-23] MEDS: Multivit, Therapeutic 1 TAB PO SCH (08:48)
[2019-01-23] MEDS: Oxybutynin 5 MG TAB PO SCH ×2 (08:48→21:38)
[2019-01-23] MEDS: Lisinopril 2.5 MG TAB PO SCH (08:49)
[2019-01-23] MEDS: Ezetimibe 10 MG TAB PO SCH (08:49)
[2019-01-23] MEDS: Ferrous Sulfate 325 MG TAB PO SCH (08:49)
[2019-01-23] MEDS: Isosorbide Mononitrate (ER) 30 MG TAB PO SCH (08:49)
[2019-01-23] MEDS: Montelukast Sodium 10 mg Tablet PO SCH (08:49)
[2019-01-23] MEDS: Carvedilol 6.25 MG TAB PO SCH ×2 (08:50→22:08)
[2019-01-23] MEDS: HumuLIN 70/30 (300 UNITS/3 ML VIAL) SC SCH ×2 (08:50→21:39)
[2019-01-23] MEDS: Aspirin Chewable 81 MG TAB PO SCH (08:50)
[2019-01-23 08:56] LABS: CKMB 16.9 ng/mL (0-6.6)
[2019-01-23] MEDS ORDERED: FLU VACC TS2019-20(65YR UP)/PF 180 MCG/0.5 ML SYRINGE IM ONE (09:00)
[2019-01-23] MEDS: Apixaban 2.5 MG TAB PO SCH ×2 (09:58→21:38)
--- NOTE | 2019-01-23 10:45 | EKG ---
Test Reason : Blood Pressure : / mmHG Vent. Rate : 107 BPM Atrial Rate : 107 BPM P-R Int : 188 ms QRS Dur : 114 ms QT Int : 340 ms P-R-T Axes : 075 -17 133 degrees QTc Int : 453 ms Sinus tachycardia Inferior infarct (cited on or before 07-APR-2018) Anterolateral infarct (cited on or before 07-APR-2018) Abnormal ECG When compared with ECG of 22-JAN-2019 07:27, (Unconfirmed) Premature atrial complexes are no longer Present ST less depressed in Lateral leads T wave inversion less evident in Lateral leads Confirmed by DR. Karen MARQUEZ ([id number]) on 01/23/2019 10:44:47 AM Referred By: JAMIE Confirmed By:DR. Karen MARQUEZ
[2019-01-23] MEDS ORDERED: Sodium Chloride 0.9% 500 ML IVPB SCH (12:00)
[2019-01-23] MEDS: HumaLOG 300 UNITS/3 ML VIAL SC PRN (14:17)
--- NOTE | 2019-01-23 14:18 | PDOC.PALCO ---
Palliative Care Consult - Consult Details Requesting Physician: Dr Rao Reason for Consult: goals of care, advance directives assistance, assistance with communication prognosis/disease Family Members Present: None - Pertinent HPI Onset of shoulder pain 01/19 with increase in insomnia. Chest discomfort presented 01/22 and was not relieved with nitro or rest, EMS called and patient transported to the hospital. Evaluation in the emergency room identified acute on chronic heart failure with diastolic dysfunction, non st elevation myocardial infarction. Admitted for monitoring. - Pertinent PMH CHF, HTN, HDL, Atrial FIb, DM 1, CABG, AICD - Social History Smoking Status: Never smoker Smoking: no tobacco exposure Alcohol Use: none Drug Use History: none Living Situation: independent - Medications MAR Reviewed: Yes - Allergies Allergies/Adverse Reactions: Allergies Allergy/AdvReac Type Severity Reaction Status Date / Time No Known Allergies Allergy Verified 08/01/18 13:46 - Subjective Alert, oriented. Denies chest pain, discomfort, nausea, vomiting, numbness. - Objective Vital Signs: Vital Signs - Most Recent Temp Pulse Resp BP Pulse Ox 99.0 F 70 16 97/51 L 99 01/23/19 12:00 01/23/19 12:00 01/23/19 12:00 01/23/19 12:05 01/23/19 12:00 Palliative Performance Scale: 50 - Physical Exam Constitutional: NAD HEENT: PERRLA, moist MMs, EOMI Respiratory: unlabored breathing Cardiovascular: RRR Gastrointestinal: soft, non-tender Musculoskeletal: no edema Neurological: moves all 4 limbs Psychiatric: normal affect, normal mood, A&O x 3 Skin: no rash, cap refill <2 seconds - Problem List (1) Palliative care encounter Code(s): Z51.5 - ENCOUNTER FOR PALLIATIVE CARE Current Visit: Yes Status: Acute (2) Heart failure Code(s): I50.9 - HEART FAILURE, UNSPECIFIED Current Visit: Yes Status: Acute (3) NSTEMI (non-ST elevated myocardial infarction) Code(s): I21.4 - NON-ST ELEVATION (NSTEMI) MYOCARDIAL INFARCTION Current Visit : Yes Status: Acute - Plan/Recommendations Plan: Palliative Care confirmed DNAR status. *Patient goal is to return home and continue with as independent lifestyle as possible *Discussed disease trajectory/anticipated outcomes *Presented option of home health to facilitate goals of independent life Palliative Care will continue to follow [60] minutes spent on this encounter with >50% of the time in counseling and coordination of care. Thank you for this very appropriate consult.
--- NOTE | 2019-01-23 14:41 | CON ---
DATE OF CONSULTATION: 01/23/2019 REASON FOR CONSULTATION: Opp-FI-ollwcjytp myocardial infarction and hypotension. HISTORY OF PRESENT ILLNESS: Ms. Gomez is a very pleasant 83-year-old woman with inoperable coronary artery disease, admitted with recurrent kar-CU-[id number] myocardial infarction. Ms. Gomez began having severe chest pain yesterday morning. Ultimately came to the hospital for evaluation. She was found to have a non-ST elevation infarction. She has had continued chest pain, but now is chest pain-free. PAST MEDICAL HISTORY: The patient has had previous coronary artery bypass grafting. She did undergo cardiac catheterization most recently in 2013. At that time, the patient was found to have three-vessel coronary artery disease, patent internal mammary to a very small part of her LAD. The LAD had occluded distally. Saphenous vein graft to obtuse marginal 1 patent, stenosis was present, but nonobstructive and occluded graft to the right coronary artery. Ejection fraction was 35%. Medical therapy is the only option. She had been bypassed on two occasions. The patient has been hospitalized over the years many times off and on with recurrent mgo-RY-[id number] and heart failure. MEDICATIONS: At home, the patient was on pravastatin, iron, apixaban 2.5 mg twice a day, aspirin, furosemide. Other past history: The patient has a history of defibrillator implantation. REVIEW OF SYSTEMS: CONSTITUTIONAL: No significant weight gain or loss. VISION: No changes. HEARING: No changes. PULMONARY: No cough or wheezing. GASTROINTESTINAL: No nausea, vomiting, or diarrhea. SKIN: No rashes. PHYSICAL EXAMINATION: GENERAL: Today, very pleasant elderly woman. VITAL SIGNS: Her blood pressure earlier today was 75/46, now 97/51 after 500 mL of saline. NECK: Neck veins are normal. Carotid normal upstrokes. LUNGS: Clear. CARDIAC: Normal S1, normal S2. There is no murmur, rub, or gallop. ABDOMEN: Soft and nontender. No hepatosplenomegaly. EXTREMITIES: Warm and dry. No clubbing or cyanosis. There is no edema. LABORATORY DATA: Her troponin level is 13.1. Her hemoglobin is 12.8. 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 EKG; sinus rhythm, poor R-wave progression. No acute changes. There is some chronic ST elevation in III and aVF. ASSESSMENT: 1. Dxh-LU-fxzdocndt infarction. 2. Congestive heart failure, systolic, chronic. 3. Hypotension. 4. Diffuse atherosclerosis. PLAN: 1. Continue aspirin. 2. Continue Eliquis. I will need to re-evaluate the indication for that. It appears that was started this July. Reviewing those notes, I am not seeing the indication. We will look at the office notes to see the indication for the apixaban. 3. Prognosis: Long-term guarded. The patient understands. We will continue current medical regimen. Job ID: [id number]
--- NOTE | 2019-01-23 18:08 | PDOC.HOSPP ---
- Subjective Encounter Date: 01/23/19 Encounter Time: 13:00 Subjective: Patient seen and examined for CP. Hypotensive earlier. No syncope/SOB. No new complaints. No overnight events - Objective Vital Signs & Weight: Vital Signs (12 hours) Temp Pulse Resp BP BP BP Pulse Ox 01/23/19 15:43 98.1 F 71 14 96/51 L 100 01/23/19 12:05 97/51 L 01/23/19 12:00 99.0 F 70 16 75/46 L 99 01/23/19 08:50 111/65 01/23/19 08:49 75 111/65 01/23/19 08:00 98.9 F 75 14 111/65 98 01/23/19 07:43 64 18 98 Weight Weight 129 lb 6.4 oz I&O: 01/22/19 01/23/19 01/24/19 06:59 06:59 06:59 Output Total 250 Balance -250 Result Diagrams: 01/23/19 05:56 01/23/19 05:56 Additional Labs: Accuchecks 01/23/19 01/23/19 01/23/19 16:26 14:14 10:56 POC Glucose 146 H 201 H 216 H 01/23/19 01/22/19 05:53 21:07 POC Glucose 151 H 285 H Laboratory Tests 01/23/19 01/23/19 05:56 05:56 Magnesium 1.6 Troponin I 13.126 H* EKG Reviewed by me: Yes (Tele paced) Hospitalist ROS - Review of Systems Respiratory: denies: cough, dry, shortness of breath, hemoptysis, SOB with excertion, pleuritic pain, sputum, wheezing, other Gastrointestinal: denies: nausea, vomiting, abdominal pain, diarrhea, constipation, melena, hematochezia, other - Medication Medications: Active Medications Generic Name Dose Route Start Last Admin Trade Name Freq PRN Reason Stop Dose Admin Albuterol/Ipratropium 3 ml 01/23/19 01:00 01/23/19 14:38 Duoneb NEB Not Given [id number] AVNI Apixaban 2.5 mg 01/22/19 21:00 01/23/19 09:58 Eliquis PO 2.5 mg BID AVNI Administration Aspirin 81 mg 01/23/19 09:00 01/23/19 08:50 Aspirin Chewable PO 81 mg DAILY [facility] Administration Atorvastatin Calcium 20 mg 01/22/19 21:00 01/22/19 21:06 Lipitor PO 20 mg HS [facility] Administration Carvedilol 6.25 mg 01/22/19 21:00 01/23/19 08:50 Coreg PO 6.25 mg BID AVNI Administration Ezetimibe 10 mg 01/23/19 09:00 01/23/19 08:49 Zetia PO 10 mg DAILY [facility] Administration Ferrous Sulfate 325 mg 01/23/19 09:00 01/23/19 08:49 Feosol PO 325 mg DAILY [facility] Administration Furosemide 40 mg 01/22/19 14:00 01/23/19 14:08 Lasix SLOW IVP 01/24/19 06:01 Not Given 0600,1400 [facility] Insulin Human Isoph/Insulin Regular 6 units 01/23/19 09:00 01/23/19 08:50 Humulin 70/30 SC 6 unit QAM [facility] Administration Insulin Human Isoph/Insulin Regular 10 units 01/22/19 21:00 01/22/19 21:05 Humulin 70/30 SC 10 unit HS [facility] Administration Insulin Human Lispro 0 units 01/22/19 12:54 01/23/19 14:17 Humalog SC 4 unit .MODERATE SLIDING SC PRN Administration Moderate Correctional Scale Isosorbide Mononitrate 30 mg 01/23/19 09:00 01/23/19 08:49 Imdur Er PO 30 mg QAM [facility] Administration Lisinopril 2.5 mg 01/23/19 09:00 01/23/19 08:49 Zestril PO 2.5 mg DAILY [facility] Administration Montelukast Sodium 10 mg 01/23/19 09:00 01/23/19 08:49 Singulair PO 10 mg DAILY [facility] Administration Multivitamins 1 tab 01/23/19 09:00 01/23/19 08:48 Theragran PO 1 tab DAILY [facility] Administration Oxybutynin Chloride 5 mg 01/22/19 21:00 01/23/19 08:48 Ditropan PO 5 mg BID [facility] Administration Pantoprazole Sodium 40 mg 01/23/19 09:00 01/23/19 08:49 Protonix PO 40 mg DAILY [facility] Administration Ranolazine 500 mg 01/22/19 21:00 01/23/19 09:58 Ranexa PO 500 mg BID [facility] Administration - Exam General Appearance: NAD Neck: supple, no JVD Heart: RRR, no gallops, no rubs, normal peripheral pulses Respiratory: CTAB, no wheezes, no rales, no ronchi Gastrointestinal: soft, non-tender, non-distended, normal bowel sounds Extremities: no cyanosis, no clubbing, no edema Neurological: no new deficit Psychiatric: normal affect, A&O x 3 Hosp A/P - Plan plan discussed w/ family NSTEMI Hypotension improved with IVF bolus CAD - inoperable Chronic systolic HR HLD Hypomagnesemia DM1 Chronic anticoagulation PLAN: Cont ASA/Statins/ACEI/BB Change Lasix to PO Replace Magnessium Cont Ranexa/Imdur AM labs Cardiac Rehab Cont current Insulin dosing
[2019-01-23] MEDS: Atorvastatin Calcium 20 MG TAB PO SCH (21:38)
[2019-01-24 04:43] LABS: #Eosinphils 0.1 thou/uL (0.0-0.7); #Lymphocytes 1.7 thou/uL (1.20-3.40); #Monocytes 0.7 thou/uL (0.11-0.59); #Neutrophils 3.6 thou/uL (1.40-6.50); %Basophils 0.1 % (0.0-1.0); %Eosinophils 0.9 % (0.0-10.0); %Lymphocytes 27.7 % (21.0-51.0); %Monocytes 10.8 % (0.0-10.0); %Neutrophils 60.4 % (42.0-75.0); Mean Corpuscular HGB CONC 34.1 g/dL (32.0-36.0); Mean Corpuscular Hemoglobin 33.1 pg (27.0-31.0); Mean Corpuscular Volume 97.1 fL (78.0-98.0); Platelet Count 140 thou/uL (130-400); Red Blood Cell (RBC) Count 3.33 mill/uL (4.20-5.40)
[2019-01-24 05:04] LABS: ALT (SGPT) 15 U/L (8-55); AST (SGOT) 46 U/L (5-34); Alkaline Phosphatase 45 U/L (40-110); Anion Gap 13 mmol/L (10-20); BUN (Urea Nitrogen) 30 mg/dL (9.8-20.1); Calc. Creatinine Clearance 34 mL/min (70-130); Calcium 8.8 mg/dL (7.8-10.44); Carbon Dioxide 25 mmol/L (23-31); Chloride 98 mmol/L (98-107); Estimated GFR-MDRD 45; Globulin 3.1 g/dL (2.4-3.5); Glucose 102 mg/dL (83-110); Magnesium 1.9 mg/dL (1.6-2.6); Potassium 4.2 mmol/L (3.5-5.1); Protein, Total 6.1 g/dL (6.0-8.3); Sodium 132 mmol/L (136-145)
[2019-01-24] MEDS: Montelukast Sodium 10 mg Tablet PO SCH (10:07)
[2019-01-24] MEDS: Apixaban 2.5 MG TAB PO SCH ×2 (10:07→20:26)
[2019-01-24] MEDS: Lisinopril 2.5 MG TAB PO SCH (10:07)
[2019-01-24] MEDS: Oxybutynin 5 MG TAB PO SCH ×2 (10:07→20:26)
[2019-01-24] MEDS: Ezetimibe 10 MG TAB PO SCH (10:08)
[2019-01-24] MEDS: Furosemide 20 MG TAB PO SCH (10:08)
[2019-01-24] MEDS: Ferrous Sulfate 325 MG TAB PO SCH (10:08)
[2019-01-24] MEDS: Isosorbide Mononitrate (ER) 30 MG TAB PO SCH (10:08)
[2019-01-24] MEDS: Aspirin Chewable 81 MG TAB PO SCH (10:08)
[2019-01-24] MEDS: Multivit, Therapeutic 1 TAB PO SCH (10:08)
[2019-01-24] MEDS: HumuLIN 70/30 (300 UNITS/3 ML VIAL) SC SCH ×2 (10:13→20:27)
[2019-01-24] MEDS: HumaLOG 300 UNITS/3 ML VIAL SC PRN ×2 (12:35→18:29)
[2019-01-24] MEDS: Carvedilol 3.125 MG TAB PO SCH (18:29)
--- NOTE | 2019-01-24 18:38 | PDOC.HOSPP ---
- Subjective Encounter Date: 01/24/19 Encounter Time: 08:00 Subjective: Patient seen and examined for NSTEMI. No CP. Feeling better. No new complaints. No overnight events - Objective Vital Signs & Weight: Vital Signs (12 hours) Temp Pulse Pulse Pulse Resp BP BP 01/24/19 16:00 98.3 F 71 12 01/24/19 13:31 88 15 01/24/19 12:00 98.5 F 72 14 01/24/19 10:20 99 72 117/58 L 01/24/19 10:07 70 129/62 01/24/19 09:21 69 88 121/59 L 01/24/19 08:00 98.1 F 70 13 01/24/19 07:38 72 14 BP BP Pulse Ox 01/24/19 16:00 113/57 L 99 01/24/19 13:31 01/24/19 12:00 129/60 99 01/24/19 10:20 125/85 01/24/19 10:07 01/24/19 09:21 129/62 01/24/19 08:00 118/57 L 99 01/24/19 07:38 Weight Weight 130 lb 3.2 oz I&O: 01/23/19 01/24/19 01/25/19 06:59 06:59 06:59 Intake Total 100 Output Total 250 550 Balance -250 -450 Result Diagrams: 01/24/19 04:15 01/24/19 04:15 Additional Labs: Accuchecks 01/24/19 01/24/19 01/24/19 16:08 10:54 05:49 POC Glucose 193 H 183 H 101 01/23/19 20:23 POC Glucose 206 H EKG Reviewed by me: Yes (Tele paced) Hospitalist ROS - Review of Systems Cardiovascular: denies: chest pain, palpitations, orthopnea, paroxysmal noc. dyspnea, edema, light headedness, other Gastrointestinal: denies: nausea, vomiting, abdominal pain, diarrhea, constipation, melena, hematochezia, other - Medication Medications: Active Medications Generic Name Dose Route Start Last Admin Trade Name Freq PRN Reason Stop Dose Admin Albuterol/Ipratropium 3 ml 01/23/19 01:00 01/24/19 13:31 Duoneb NEB 3 ml [id number] AVNI Administration Apixaban 2.5 mg 01/22/19 21:00 01/24/19 10:07 Eliquis PO 2.5 mg BID [facility] Administration Aspirin 81 mg 01/23/19 09:00 01/24/19 10:08 Aspirin Chewable PO 81 mg DAILY [facility] Administration Atorvastatin Calcium 20 mg 01/22/19 21:00 01/23/19 21:38 Lipitor PO 20 mg HS [facility] Administration Carvedilol 3.125 mg 01/24/19 17:00 01/24/19 18:29 Coreg PO 3.125 mg BID-WM [facility] Administration Ezetimibe 10 mg 01/23/19 09:00 01/24/19 10:08 Zetia PO 10 mg DAILY [facility] Administration Ferrous Sulfate 325 mg 01/23/19 09:00 01/24/19 10:08 Feosol PO 325 mg DAILY [facility] Administration Furosemide 20 mg 01/24/19 09:00 01/24/19 10:08 Lasix PO 20 mg DAILY [facility] Administration Insulin Human Isoph/Insulin Regular 6 units 01/23/19 09:00 01/24/19 10:13 Humulin 70/30 SC 6 unit QAM [facility] Administration Insulin Human Isoph/Insulin Regular 10 units 01/22/19 21:00 01/23/19 21:39 Humulin 70/30 SC 10 unit HS [facility] Administration Insulin Human Lispro 0 units 01/22/19 12:54 01/24/19 18:29 Humalog SC 2 unit .MODERATE SLIDING SC PRN Administration Moderate Correctional Scale Isosorbide Mononitrate 30 mg 01/23/19 09:00 01/24/19 10:08 Imdur Er PO 30 mg QAM [facility] Administration Lisinopril 2.5 mg 01/23/19 09:00 01/24/19 10:07 Zestril PO 2.5 mg DAILY [facility] Administration Montelukast Sodium 10 mg 01/23/19 09:00 01/24/19 10:07 Singulair PO 10 mg DAILY [facility] Administration Multivitamins 1 tab 01/23/19 09:00 01/24/19 10:08 Theragran PO 1 tab DAILY [facility] Administration Oxybutynin Chloride 5 mg 01/22/19 21:00 01/24/19 10:07 Ditropan PO 5 mg BID [facility] Administration Pantoprazole Sodium 40 mg 01/23/19 09:00 01/24/19 10:08 Protonix PO 40 mg DAILY [facility] Administration Ranolazine 500 mg 01/22/19 21:00 01/24/19 10:07 Ranexa PO 500 mg BID [facility] Administration - Exam General Appearance: NAD Heart: RRR, no gallops Respiratory: CTAB, no rales Gastrointestinal: soft, non-tender, normal bowel sounds Extremities: no edema Hosp A/P - Plan NSTEMI Hypotension - improving CAD - inoperable Chronic systolic HF HLD Hypomagnesemia/Hyponatremia DM1 Chronic anticoagulation CKD 3 Moderate PEM PLAN: Cont ASA/Statins/ACEI/Ranexa/Imdur Coreg dose reduced due to hypotension Cont Lasix Cardiac Rehab Cont current Insulin dose Cont other meds C eval
[2019-01-24] MEDS: Atorvastatin Calcium 20 MG TAB PO SCH (20:26)
[2019-01-24] MEDS ORDERED: Nitroglycerin 0.4 MG TAB (25 Tab Bottle) SL PRN (21:31)
[2019-01-24 22:24] LABS: Troponin I 2.758 ng/mL (< 0.028)
[2019-01-25] MEDS: Apixaban 2.5 MG TAB PO SCH ×2 (09:32→21:52)
[2019-01-25] MEDS: Ezetimibe 10 MG TAB PO SCH (09:33)
[2019-01-25] MEDS: Multivit, Therapeutic 1 TAB PO SCH (09:33)
[2019-01-25] MEDS: Aspirin Chewable 81 MG TAB PO SCH (09:34)
[2019-01-25] MEDS: Ferrous Sulfate 325 MG TAB PO SCH (09:34)
[2019-01-25] MEDS: Montelukast Sodium 10 mg Tablet PO SCH (09:35)
[2019-01-25] MEDS: Isosorbide Mononitrate (ER) 30 MG TAB PO SCH (09:35)
[2019-01-25] MEDS: Oxybutynin 5 MG TAB PO SCH ×2 (09:36→21:52)
[2019-01-25] MEDS: HumuLIN 70/30 (300 UNITS/3 ML VIAL) SC SCH ×2 (10:14→21:53)
[2019-01-25] MEDS: Lisinopril 2.5 MG TAB PO SCH (10:18)
[2019-01-25] MEDS: Carvedilol 3.125 MG TAB PO SCH ×2 (10:19→16:50)
[2019-01-25] MEDS: Furosemide 20 MG TAB PO SCH (10:19)
[2019-01-25] MEDS: HumaLOG 300 UNITS/3 ML VIAL SC PRN ×2 (12:53→16:48)
--- NOTE | 2019-01-25 17:20 | EKG ---
Test Reason : Blood Pressure : / mmHG Vent. Rate : 077 BPM Atrial Rate : 077 BPM P-R Int : 200 ms QRS Dur : 108 ms QT Int : 412 ms P-R-T Axes : -28 -10 128 degrees QTc Int : 466 ms Normal sinus rhythm Inferior infarct (cited on or before 07-APR-2018) Anterolateral infarct (cited on or before 07-APR-2018) Abnormal ECG When compared with ECG of 22-JAN-2019 17:43, Questionable change in initial forces of Lateral leads Confirmed by DR. Karen MARQUEZ ([id number]) on 01/25/2019 5:19:37 PM Referred By: OLGA Confirmed By:DR. Karen MARQUEZ
--- NOTE | 2019-01-25 17:45 | PRG ---
DATE OF SERVICE: 01/25/2019 SUBJECTIVE: Ms. Gomez feels better today. She did have some recurrent chest pain yesterday. OBJECTIVE: VITAL SIGNS: Her blood pressure 111/57, pulse 74 and regular. LUNGS: Clear. CARDIAC: Normal S1. Normal S2. ABDOMEN: Soft and nontender. ASSESSMENT: 1. Status post iim-PE-mdndskzyo myocardial infarction. 2. Depressed left ventricular function. 3. Inoperable coronary artery disease. 4. Ejection fraction 25% to 30%. PLAN: 1. Continue current medical regimen. 2. Portable chest x-ray tomorrow to re-assess congestive heart failure. Job ID: [id number]
[2019-01-25] MEDS: Atorvastatin Calcium 20 MG TAB PO SCH (21:52)
--- NOTE | 2019-01-25 21:52 | PDOC.HOSPP ---
- Subjective Encounter Date: 01/25/19 Encounter Time: 15:00 Subjective: Patient seen and examined for NSTEMI. No CP. SOB on exertion. No new complaints. No overnight events - Objective Vital Signs & Weight: Vital Signs (12 hours) Temp Pulse Pulse Pulse Resp BP BP 01/25/19 19:50 98.4 F 76 18 01/25/19 18:34 82 16 01/25/19 16:00 98.6 F 74 18 01/25/19 14:04 01/25/19 13:38 90 78 122/66 01/25/19 13:00 84 12 01/25/19 12:00 98.6 F 78 12 01/25/19 10:18 93 127/62 BP BP BP Pulse Ox Pulse Ox Pulse Ox 01/25/19 19:50 113/54 L 98 01/25/19 18:34 99 01/25/19 16:00 111/57 L 95 01/25/19 14:04 97 01/25/19 13:38 111/55 L 97 96 01/25/19 13:00 01/25/19 12:00 111/63 90 L 01/25/19 10:18 Weight Weight 129 lb 14.4 oz I&O: 01/24/19 01/25/19 01/26/19 06:59 06:59 06:59 Intake Total 100 320 Output Total 550 Balance -450 320 Result Diagrams: 01/24/19 04:15 01/24/19 04:15 Additional Labs: Accuchecks 01/25/19 01/25/19 01/25/19 19:58 16:34 10:46 POC Glucose 247 H 162 H 223 H 01/25/19 06:05 POC Glucose 140 H EKG Reviewed by me: Yes (Tele paced) Hospitalist ROS - Review of Systems Respiratory: denies: cough, dry, shortness of breath, hemoptysis, SOB with excertion, pleuritic pain, sputum, wheezing, other Cardiovascular: denies: chest pain, palpitations, orthopnea, paroxysmal noc. dyspnea, edema, light headedness, other - Medication Medications: Active Medications Generic Name Dose Route Start Last Admin Trade Name Freq PRN Reason Stop Dose Admin Albuterol/Ipratropium 3 ml 01/23/19 01:00 01/25/19 18:34 Duoneb NEB 3 ml [id number] AVNI Administration Apixaban 2.5 mg 01/22/19 21:00 01/25/19 09:32 Eliquis PO 2.5 mg BID AVNI Administration Aspirin 81 mg 01/23/19 09:00 01/25/19 09:34 Aspirin Chewable PO 81 mg DAILY AVNI Administration Atorvastatin Calcium 20 mg 01/22/19 21:00 01/24/19 20:26 Lipitor PO 20 mg HS AVNI Administration Carvedilol 3.125 mg 01/24/19 17:00 01/25/19 16:50 Coreg PO 3.125 mg BID-WM AVNI Administration Ezetimibe 10 mg 01/23/19 09:00 01/25/19 09:33 Zetia PO 10 mg DAILY AVNI Administration Ferrous Sulfate 325 mg 01/23/19 09:00 01/25/19 09:34 Feosol PO 325 mg DAILY AVNI Administration Furosemide 20 mg 01/24/19 09:00 01/25/19 10:19 Lasix PO 20 mg DAILY AVNI Administration Insulin Human Isoph/Insulin Regular 6 units 01/23/19 09:00 01/25/19 10:14 Humulin 70/30 SC 6 unit QAM AVNI Administration Insulin Human Isoph/Insulin Regular 10 units 01/22/19 21:00 01/24/19 20:27 Humulin 70/30 SC 10 unit HS AVNI Administration Insulin Human Lispro 0 units 01/22/19 12:54 01/25/19 16:48 Humalog SC 2 unit .MODERATE SLIDING SC PRN Administration Moderate Correctional Scale Isosorbide Mononitrate 30 mg 01/23/19 09:00 01/25/19 09:35 Imdur Er PO 30 mg QAM AVNI Administration Lisinopril 2.5 mg 01/23/19 09:00 01/25/19 10:18 Zestril PO 2.5 mg DAILY AVNI Administration Montelukast Sodium 10 mg 01/23/19 09:00 01/25/19 09:35 Singulair PO 10 mg DAILY AVNI Administration Multivitamins 1 tab 01/23/19 09:00 01/25/19 09:33 Theragran PO 1 tab DAILY AVNI Administration Nitroglycerin 0.4 mg 01/24/19 21:31 01/24/19 21:47 Nitrostat SL 1 tab Q5MIN PRN Administration Chest Pain Oxybutynin Chloride 5 mg 01/22/19 21:00 01/25/19 09:36 Ditropan PO 5 mg BID AVNI Administration Pantoprazole Sodium 40 mg 01/23/19 09:00 01/25/19 09:36 Protonix PO 40 mg DAILY AVNI Administration Ranolazine 500 mg 01/22/19 21:00 01/25/19 09:36 Ranexa PO 500 mg BID AVNI Administration - Exam General Appearance: NAD Neck: supple, no JVD Heart: RRR, no gallops Respiratory: CTAB, no rales, rhonchi Gastrointestinal: soft, non-distended, normal bowel sounds Extremities: no edema Hosp A/P - Plan NSTEMI Hypotension CAD - inoperable Chronic systolic HF HLD Hypomagnesemia/Hyponatremia DM1 Chronic anticoagulation CKD 3 Moderate PEM PLAN: Portable CXR in AM per Cardiology Cont ASA/Statins/ACEI/Ranexa/Imdur/Lasix Cardiac Rehab Cont sliding scale Cont other meds Patient declined [facility]
--- NOTE | 2019-01-26 08:16 | RAD ---
CHEST 1 VIEW PORTABLE: HISTORY: Congestive heart failure. COMPARISON: 01/22/2019. FINDINGS: Postop midline sternotomy and left ICD. Borderline heart size. Minimal increased linear and interst itial markings bilaterally, but showing some improvement from 01/22. No confluent pneumonia. IMPRESSION: Minimal improvement in the interstitial and alveolar opacity changes and vascular congestion when com pared to the prior study. POS: TPC
[2019-01-26] MEDS: Carvedilol 3.125 MG TAB PO SCH (08:48)
[2019-01-26] MEDS: Montelukast Sodium 10 mg Tablet PO SCH (08:49)
[2019-01-26] MEDS: Ferrous Sulfate 325 MG TAB PO SCH (08:49)
[2019-01-26] MEDS: Aspirin Chewable 81 MG TAB PO SCH (08:49)
[2019-01-26] MEDS: Isosorbide Mononitrate (ER) 30 MG TAB PO SCH (08:49)
[2019-01-26] MEDS: Oxybutynin 5 MG TAB PO SCH (08:50)
[2019-01-26] MEDS: Lisinopril 2.5 MG TAB PO SCH (08:50)
[2019-01-26] MEDS: Ezetimibe 10 MG TAB PO SCH (08:50)
[2019-01-26] MEDS: Apixaban 2.5 MG TAB PO SCH (08:50)
[2019-01-26] MEDS: Multivit, Therapeutic 1 TAB PO SCH (08:50)
[2019-01-26] MEDS: Furosemide 20 MG TAB PO SCH (08:51)
--- NOTE | 2019-01-26 09:39 | PRG ---
DATE OF SERVICE: 01/26/2019 SUBJECTIVE: Ms. Gomez is doing better today. No chest pain. OBJECTIVE: VITAL SIGNS: Her blood pressure 128/60; pulse 70s, it is regular. LUNGS: Clear anteriorly. Posteriorly, there are some rales, I think that could be a pulmonary fibrosis. CARDIAC: Normal S1. Normal S2. ABDOMEN: Soft and nontender. ASSESSMENT: 1. Status post non-ST elevation infarction. 2. Inoperable coronary artery disease. 3. Congestive heart failure, systolic, chronic. PLAN: Okay to me to go home with the current regimen, nothing else at this point indicated. Chest x-ray looks better. Job ID: [id number]
[2019-01-26] MEDS: HumuLIN 70/30 (300 UNITS/3 ML VIAL) SC SCH (10:38)
[2019-01-26 11:41] VITALS: BP 116/57; TEMP 98
[2019-01-26] MEDS: HumaLOG 300 UNITS/3 ML VIAL SC PRN (12:01)
--- NOTE | 2019-01-26 22:12 | DIS ---
DATE OF ADMISSION: 01/22/2019 DATE OF DISCHARGE: 01/26/2019 DISCHARGE DISPOSITION: Home. The patient declined home health care. FOLLOWUP: 1. Follow up with primary care physician, Dr. Neri Matthews on January 31, 2019. 2. Follow up with Cardiology, Dr. Kevin as scheduled. ALLERGIES: NO KNOWN DRUG ALLERGIES. CODE STATUS: Do not resuscitate. DISCHARGE MEDICATIONS: 1. Carvedilol 3.125 mg b.i.d. (dose reduced). 2. Aspirin 81 mg daily. All other home medications were left unchanged. The patient was seen on the day of discharge. Denies any new complaints. INPATIENT TRUCKING MANAGER: Cardiology, Dr. Kevin. BRIEF HOSPITAL COURSE: The patient is an 83-year-old female with inoperable coronary artery disease, presented to the hospital on January 22, 2019 with chest discomfort along with nausea. Please refer to the history and physical dated January 22, 2019 for further details. The patient was admitted to the hospital with a diagnosis of vkg-PB-quwywwcin MN. Her maximum troponin was 13.1 with 16.9 CK-MB. She was monitored on the telemetry unit. She was evaluated by Cardiology, Dr. Kevin. An echocardiogram was obtained that showed ejection fraction of 25% to 30% with moderate tricuspid regurgitation, mild to moderate mitral regurgitation as well as severely elevated pulmonary artery pressure. Carvedilol dose has been reduced to 3.125 mg b.i.d. She has been cleared by Cardiology for discharge. FINAL DIAGNOSES: 1. Tpm-XY-qwckimavd myocardial infarction. 2. Inoperable coronary artery disease. 3. Hypotension, improved with IV fluid bolus. Carvedilol dose was reduced due to hypotension. 4. Chronic systolic heart failure. 5. Hyperlipidemia. 6. Hypomagnesemia. 7. Diabetes mellitus type 1. 8. Chronic anticoagulation. 9. Degenerative joint disease. PLAN: Plan was discussed with the patient in detail. She stated understanding. Job ID: [id number]
--- NOTE | 2019-01-29 03:42 | PQF ---
BETH DONALD MALIK MD [id number] CLINICAL DOCUMENTATION CLARIFICATION FORM: POST DISCHARGE Addendum to original discharge summary date: ____ Late entry note date: __ DATE: 01/29/19 ATTN:Gunner Pinto Please exercise your independent, professional judgment in responding to the clarification form. Clinical indicators are provided on the bottom of this form for your review Please check appropriate box(s) to clarify if the following diagnosis has been ruled in or ruled out: ACUTE HYPOXIC RESPIRATORY FAILURE [x ] Ruled in diagnosis [ ] Continue to treat [ x ] Resolved [ ] Ruled out diagnosis [ ] Cannot rule out diagnosis [ ] Other diagnosis [ ] Unable to determine In addition, please specify: Present on Admission (POA): [ x ] Yes [ ] No [ ] Unable to determine For continuity of documentation, please document condition throughout progress notes and discharge summary. Thank You. CLINICAL INDICATORS - SIGNS / SYMPTOMS / LABS HP 01/22 "CC: acute respiratory failure with hypoxia" 01/22 "currently in mild to moderate respiratory distress" ED Notes 01/22 "presents for evaluation of chest pain" Chest Xray 01/22 "mild pulmonary vascular congestion" RISK FACTORS 01/22-CHF HP 01/22-NSTEMI 01/22-CAD 01/22-HTN PN 01/24-CKD DS 01/26-83 years old female TREATMENTS Collected 01/22-Chest Xray HP 01/22-Oxygen MAR 01/22-Duoneb 3ml Neb (This form is maintained as a part of the permanent medical record) 2014 [employer]. All Rights Reserved [email or web address] [not provided] MTDD
== END 2019-01-26 12:33 | disposition home or self-care (01) | DRG 280 ==
LOC: ERS 07:15 → OBSVTOIN 09:13 → ERHOLD 09:13 → 2SE 16:41
PROVIDERS: ADMIT Internal Medicine; ATTEND Internal Medicine
DX: I21.4 Non-ST elevation (NSTEMI) myocardial infarction (principal); J96.01 Acute respiratory failure with hypoxia; I13.0 Hypertensive heart and chronic kidney disease with heart failure and stage 1 through stage 4 chronic kidney disease, or unspecified chronic kidney disease; I50.22 Chronic systolic (congestive) heart failure; E87.1 Hypo-osmolality and hyponatremia; E44.0 Moderate protein-calorie malnutrition; Z23 Encounter for immunization; I25.10 Atherosclerotic heart disease of native coronary artery without angina pectoris; I48.91 Unspecified atrial fibrillation; I95.9 Hypotension, unspecified; E83.42 Hypomagnesemia; Z51.5 Encounter for palliative care; Z66 Do not resuscitate; E11.22 Type 2 diabetes mellitus with diabetic chronic kidney disease; N18.3 Chronic kidney disease, stage 3 (moderate); I08.1 Rheumatic disorders of both mitral and tricuspid valves; M19.90 Unspecified osteoarthritis, unspecified site; Z68.23 Body mass index [BMI] 23.0-23.9, adult; I25.2 Old myocardial infarction; Z95.1 Presence of aortocoronary bypass graft; Z95.810 Presence of automatic (implantable) cardiac defibrillator; Z95.5 Presence of coronary angioplasty implant and graft; Z79.01 Long term (current) use of anticoagulants; Z79.82 Long term (current) use of aspirin; Z79.899 Other long term (current) drug therapy; Z90.49 Acquired absence of other specified parts of digestive tract; Z79.4 Long term (current) use of insulin
CPT/HCPCS: 36415; 36416; 71045; 80048; 80053; 82553; 83735; 83880; 84443; 84484; 85025; 85610; 85730; 90471; 90662; 93005; 93010; 93306; 93798; 94640; 96361; 96374; G0008; J1815; J1940; J3475; J7620

== ENCOUNTER 2019-01-30 11:06 | Emergency (ER) | payer MEDICARE ==
--- NOTE | 2019-01-30 12:07 | RAD ---
EXAM: Single view of the chest HISTORY: Difficulty breathing and dyspnea COMPARISON: 01/26/2019 FINDINGS: Single view of the chest shows an enlarged but stable cardiomediastinal silhouette. The pa tient is status post sternotomy. The pacemaker is unchanged in position. Increased interstitial markings are present. Slight blunting of the right costophrenic angle may represent a small right pl eural effusion. Hardware is seen in the spine. IMPRESSION: Possible small right pleural effusion.
[2019-01-30 12:13] LABS: #Eosinphils 0.1 thou/uL (0.0-0.7); #Lymphocytes 1.6 thou/uL (1.20-3.40); #Monocytes 0.6 thou/uL (0.11-0.59); #Neutrophils 3.3 thou/uL (1.40-6.50); %Basophils 0.2 % (0.0-1.0); %Eosinophils 1.3 % (0.0-10.0); %Lymphocytes 28.6 % (21.0-51.0); %Monocytes 10.1 % (0.0-10.0); %Neutrophils 59.9 % (42.0-75.0); Hemoglobin 12.1 g/dL (12.0-16.0); Mean Corpuscular HGB CONC 33.5 g/dL (32.0-36.0); Mean Corpuscular Hemoglobin 32.5 pg (27.0-31.0); Mean Platelet Volume 8.9 fL (7.4-10.4); Platelet Count 197 thou/uL (130-400); RBC Distribution Width 12.4 % (11.5-14.5); Red Blood Cell (RBC) Count 3.71 mill/uL (4.20-5.40); White Blood Cell (WBC) Count 5.5 thou/uL (4.8-10.8)
[2019-01-30 12:29] LABS: ALT (SGPT) 15 U/L (8-55); AST (SGOT) 22 U/L (5-34); Albumin 3.9 g/dL (3.4-4.8); Alkaline Phosphatase 59 U/L (40-110); Anion Gap 9 mmol/L (10-20); BUN (Urea Nitrogen) 17 mg/dL (9.8-20.1); Bilirubin, Total 0.7 mg/dL (0.2-1.2); Calc. Creatinine Clearance 0 mL/min (70-130); Calcium 9.3 mg/dL (7.8-10.44); Carbon Dioxide 32 mmol/L (23-31); Chloride 97 mmol/L (98-107); Estimated GFR-MDRD 50; Glucose 167 mg/dL (83-110); Potassium 4.4 mmol/L (3.5-5.1); Protein, Total 6.9 g/dL (6.0-8.3); Sodium 134 mmol/L (136-145)
[2019-01-30] MEDS ORDERED: Furosemide 40 MG/4 ML VIAL ONE (13:09)
[2019-01-30] MEDS ORDERED: Aspirin 325 MG TAB ONE (13:09)
[2019-01-30 13:16] LABS: CKMB 1.9 ng/mL (0-6.6)
[2019-01-30 15:15] LABS: Troponin I 0.257 ng/mL (< 0.028)
== END 2019-01-30 15:40 | disposition home or self-care (01) ==
LOC: ERS 11:06
DX: I11.0 Hypertensive heart disease with heart failure (principal); I50.9 Heart failure, unspecified; I25.10 Atherosclerotic heart disease of native coronary artery without angina pectoris; I49.9 Cardiac arrhythmia, unspecified; E11.9 Type 2 diabetes mellitus without complications; I25.2 Old myocardial infarction; Z79.82 Long term (current) use of aspirin; Z79.01 Long term (current) use of anticoagulants; Z79.899 Other long term (current) drug therapy
CPT/HCPCS: 36415; 71045; 80053; 82553; 83880; 84484; 85025; 93005; J1940

== ENCOUNTER 2019-02-18 01:35 | Inpatient (IN) | payer MEDICARE ==
[2019-02-18 02:17] LABS: INR-International Normal Ratio 1.6; Prothrombin Time 18.7 SEC (12.0-14.7)
[2019-02-18 02:18] LABS: PTT 43.1 SEC (22.9-36.1)
[2019-02-18 02:26] LABS: #Basophils 0.1 thou/uL (0.0-0.2); #Eosinphils 0.1 thou/uL (0.0-0.7); #Lymphocytes 2.1 thou/uL (1.20-3.40); #Monocytes 0.6 thou/uL (0.11-0.59); #Neutrophils 4.1 thou/uL (1.40-6.50); %Eosinophils 0.9 % (0.0-10.0); %Lymphocytes 29.8 % (21.0-51.0); %Monocytes 9.1 % (0.0-10.0); %Neutrophils 59.2 % (42.0-75.0); Hemoglobin 12.9 g/dL (12.0-16.0); Mean Corpuscular HGB CONC 34.7 g/dL (32.0-36.0); Mean Corpuscular Hemoglobin 32.5 pg (27.0-31.0); Mean Corpuscular Volume 93.6 fL (78.0-98.0); Mean Platelet Volume 10.2 fL (7.4-10.4); Platelet Count 166 thou/uL (130-400); RBC Distribution Width 12.2 % (11.5-14.5); Red Blood Cell (RBC) Count 3.98 mill/uL (4.20-5.40); White Blood Cell (WBC) Count 6.9 thou/uL (4.8-10.8)
[2019-02-18 02:37] LABS: ALT (SGPT) 10 U/L (8-55); AST (SGOT) 16 U/L (5-34); Albumin 3.8 g/dL (3.4-4.8); Alkaline Phosphatase 58 U/L (40-110); Anion Gap 14 mmol/L (10-20); BUN (Urea Nitrogen) 47 mg/dL (9.8-20.1); Bilirubin, Total 0.9 mg/dL (0.2-1.2); Calc. Creatinine Clearance 0 mL/min (70-130); Calcium 9.8 mg/dL (7.8-10.44); Carbon Dioxide 24 mmol/L (23-31); Chloride 86 mmol/L (98-107); Estimated GFR-MDRD 33; Globulin 3.8 g/dL (2.4-3.5); Glucose 283 mg/dL (83-110); Potassium 4.1 mmol/L (3.5-5.1); Protein, Total 7.6 g/dL (6.0-8.3); Sodium 120 mmol/L (136-145)
[2019-02-18 02:39] LABS: CKMB 1.9 ng/mL (0-6.6)
[2019-02-18 07:00] LABS: Troponin I 0.183 ng/mL (< 0.028)
[2019-02-18] MEDS ORDERED: Nitroglycerin 0.4 MG TAB (25 Tab Bottle) SL PRN (07:25)
[2019-02-18] MEDS ORDERED: Diabetic Tussin DM 5 ML UDCUP PO PRN ×2 (07:37→08:56)
[2019-02-18] MEDS ORDERED: Dextrose 5% in Water 1,000 ML IV PRN (07:37)
[2019-02-18] MEDS ORDERED: Dextrose 50% Abboject 50 ML SYRINGE SLOW IVP PRN (07:37)
[2019-02-18] MEDS ORDERED: Carvedilol 3.125 MG TAB PO SCH (08:00)
[2019-02-18 08:06] LABS: Anion Gap 18 mmol/L (10-20); BUN (Urea Nitrogen) 48 mg/dL (9.8-20.1); Calc. Creatinine Clearance 23 mL/min (70-130); Calcium 9.3 mg/dL (7.8-10.44); Carbon Dioxide 24 mmol/L (23-31); Chloride 87 mmol/L (98-107); Estimated GFR-MDRD 29; Glucose 361 mg/dL (83-110); Potassium 4.8 mmol/L (3.5-5.1); Sodium 124 mmol/L (136-145)
[2019-02-18] MEDS ORDERED: Guaifenesin DM 100-10/5 ML UDCUP PO PRN (08:43)
--- NOTE | 2019-02-18 08:46 | RAD ---
CHEST 1 VIEW: INDICATION: Chest pain. COMPARISON: Prior exam dated 01/30/2019. FINDINGS: There is stable cardiomegaly. Midline sternotomy changes are stable. There are diffuse interstitial opacities and mild pulmonary vascular congestion. There are small bilateral pleural effusions. No pneumothorax is evident. IMPRESSION: Findings of mild congestive heart failure. POS: BH
[2019-02-18] MEDS ORDERED: Non-Formulary Item 1 EACH (Multivitamin [Multivitamins] 1 CAP) PO SCH (09:00)
[2019-02-18] MEDS ORDERED: Furosemide 40 MG TAB PO SCH (09:00)
[2019-02-18] MEDS ORDERED: Furosemide 20 MG TAB PO SCH (09:00)
[2019-02-18] MEDS ORDERED: Aspirin 325 mg Enteric Coated Tablet PO SCH (09:00)
[2019-02-18] MEDS ORDERED: Non-Formulary Item 1 EACH (Insulin Aspart Prot/Insuln Asp [Novolog Mix 70-30 Flexpen Syrn SC SCH (09:00)
[2019-02-18] MEDS ORDERED: Non-Formulary Item 1 EACH (Pravastatin Sodium [Pravastatin Sodium] 80 MG) PO SCH (09:00)
--- NOTE | 2019-02-18 09:10 | HP ---
PRIMARY CARE PROVIDER: Dr. Neri Matthews. The patient referred to the Hospitalist Service by [facility] for hyponatremia, acute kidney injury, chest pain. The patient had 4 hours of vague chest pain radiating into the left neck and head. Positive sweat, nausea with dry heaves. No distinct shortness of breath with this episode. PAST MEDICAL HISTORY: Pertinent for coronary artery disease inoperable, hypertension, dyslipidemia, atrial fibrillation, diabetes mellitus type 1, ischemic cardiomyopathy. PAST SURGICAL HISTORY: Coronary artery bypass graft, AICD, cholecystectomy, L- spine surgery x4, surgery on right femur. CURRENT MEDICATIONS: 1. Zaroxolyn 5 mg a day. 2. Entresto 24/26 tablet twice a day. 3. NovoLog 70/30 10 units subcu at bedtime. 4. Nitroglycerin. 5. NovoLog 6 units a.m. 6. Pravastatin 80 mg a day. 7. Protonix 40 mg a day. 8. Coreg 6.25 mg twice a day. 9. Ranexa 500 mg a day. 10. Montelukast 10 mg a day. 11. Eliquis 2.5 mg twice a day. 12. Ditropan 5 mg p.o. b.i.d. 13. Imdur 30 mg a day. 14. Multivitamins. 15. Zetia 10 mg a day. 16. Lasix 40 mg a day. 17. Aspirin 81 mg a day. ALLERGIES: NO KNOWN DRUG ALLERGIES. SOCIAL HISTORY: No tobacco or alcohol. Full code status. Daughter and son-in- law all at bedside. Daughter, Valentine Lowry, is power of investment fund manager. FAMILY HISTORY: No history of inheritable diseases, diabetes, hypertension, coronary artery disease. REVIEW OF SYSTEMS: GENERAL: No headaches, dizziness, or fainting. EYES: No double vision, blurred vision, or flashing lights. EAR, NOSE, AND THROAT: No ear pain or drainage. No nasal bleeding. No trouble swallowing. CARDIAC: See the present illness. No orthopnea or paroxysmal nocturnal dyspnea at this time. RESPIRATIONS: She has cough. Family says she has been wheezing. GASTROINTESTINAL: She has dry heaves prior to coming. No hematemesis. No abdominal pain, diarrhea, or melena. GENITOURINARY: No hematuria or dysuria. MUSCULOSKELETAL: No swelling in her legs. No pain in her muscles or joints. NEUROLOGICAL: No strokes, seizures, or focal weakness. PSYCHIATRIC: No anxiety or depression. SKIN: No bruising, bleeding, or rash. HEME/LYMPH: No tender or swollen lymph nodes. AXILLA: Inguinal cervical area. PHYSICAL EXAMINATION: GENERAL: She is alert, somewhat hard of hearing. VITAL SIGNS: Blood pressure 95/57, pulse 90, respirations 16, O2 saturations 96 on room air. HEAD, EYES, EARS, NOSE, THROAT: Pupils equal and round. Extraocular movements are intact. Sclerae are white. Tympanic membranes clear. Nose is clear. Oral mucous membranes are damp. NECK: Supple without jugular venous distention, adenopathy, or thyromegaly. CHEST: Clear to percussion. She has coarse breath sounds with rhonchi. Heart has regular rate and rhythm. First and second second heart sounds are clear. There is soft 2/6 systolic murmur. ABDOMEN: Soft. Bowel sounds are normal. There is no hepatosplenomegaly. No mass. No rebound. EXTREMITIES: Reveal no cyanosis, clubbing, or edema. Pulses; carotid pulses, brisk; radial pulses somewhat difficult, but palpable; femoral pulses, good; pedal pulses, diminished symmetrically. SKIN: Warm and dry without bruises or rash. HEME/LYMPH: No tender or swollen lymph nodes in axilla, inguinal, or cervical area. NEUROLOGICAL: Cranial nerves 2 through 12 are intact. Deep tendon reflexes symmetric. DIAGNOSTIC DATA: EKG, atrial fibrillation with left bundle branch block reviewed by me. Chest x-ray reviewed by me, no cardiomegaly, CHF, or infiltrate. There is a question of bilateral small pleural effusions. There is a defibrillator in the left upper chest. There is median sternotomy changes related to her chest surgery. LABORATORY DATA: CBC; white count 6.9, hemoglobin 12.9, platelet count 166,000. INR 1.6, APTT 43.1. Sodium is 120, potassium 4.1, BUN 47, creatinine 1.49, glucose 283, troponins less than 0.183. ADMITTING DIAGNOSES: 1. Chest pain in the face of inoperable coronary artery disease with a modest elevation in the second troponin. 2. Cardiomyopathy with no evidence of overt congestive heart failure. 3. Diabetes mellitus, insulin dependent. 4. Acute on chronic kidney disease, creatinine is 1.49, previous hospitalization it was 1.03. 5. Hyponatremia. 6. Dyslipidemia. 7. Abnormal chest exam. 8. Hypertension with low blood pressure. PLAN: 1. Repeat serial enzymes. Continue home medications except Zaroxolyn. 2. Cardiology consult. 3. In review of medications, I do not believe she was on Zaroxolyn before this last hospitalization. I suspected it is responsible for hyponatremia. In adverse renal functions studies, we will hold Zaroxolyn. Repeat basic metabolic profile. 4. Accu-Cheks sliding scale. Continue current home insulin. We will discuss with Cardiology. Further plans after said discussion. Job ID: [id number] MTDD
[2019-02-18] MEDS: Aspirin 81 mg Enteric Coated Tablet PO SCH (09:14)
[2019-02-18] MEDS: Ezetimibe 10 MG TAB PO SCH (09:15)
[2019-02-18] MEDS: Apixaban 2.5 MG TAB PO SCH ×2 (09:15→22:17)
[2019-02-18] MEDS: Multivit, Therapeutic 1 TAB PO SCH (09:15)
[2019-02-18] MEDS: Montelukast Sodium 10 mg Tablet PO SCH (09:15)
[2019-02-18] MEDS: Carvedilol 6.25 MG TAB PO SCH ×2 (09:15→16:49)
[2019-02-18] MEDS: Oxybutynin 5 MG TAB PO SCH ×2 (09:15→22:17)
[2019-02-18] MEDS: Isosorbide Mononitrate (ER) 30 MG TAB PO SCH (09:15)
[2019-02-18] MEDS: HumuLIN 70/30 (300 UNITS/3 ML VIAL) SC SCH ×2 (09:16→22:19)
[2019-02-18] MEDS: HumaLOG 300 UNITS/3 ML VIAL SC PRN ×2 (09:16→16:45)
[2019-02-18 09:32] LABS: #Monocytes 0.5 thou/uL (0.11-0.59); #Neutrophils 6.6 thou/uL (1.40-6.50); %Basophils 0.2 % (0.0-1.0); %Eosinophils 0.2 % (0.0-10.0); %Lymphocytes 12.1 % (21.0-51.0); %Monocytes 6.4 % (0.0-10.0); %Neutrophils 81.1 % (42.0-75.0); Hemoglobin 13.9 g/dL (12.0-16.0); Mean Corpuscular HGB CONC 33.4 g/dL (32.0-36.0); Mean Corpuscular Hemoglobin 31.9 pg (27.0-31.0); Mean Corpuscular Volume 95.7 fL (78.0-98.0); Mean Platelet Volume 9.7 fL (7.4-10.4); Platelet Count 147 thou/uL (130-400); RBC Distribution Width 12.3 % (11.5-14.5); Red Blood Cell (RBC) Count 4.34 mill/uL (4.20-5.40); White Blood Cell (WBC) Count 8.1 thou/uL (4.8-10.8)
[2019-02-18] MEDS: Ondansetron ODT 4 MG TAB PO PRN ×2 (09:43→14:26)
[2019-02-18 10:19] LABS: T4 15.8 ug/dL (4.87-11.72); Thyroid Stimulating Hormone 5.3626 uIU/mL (0.35-4.94)
[2019-02-18 11:15] LABS: Troponin I 2.332 ng/mL (< 0.028)
[2019-02-18] MEDS ORDERED: Sodium Chloride 0.9% 500 ML IV SCH (11:45)
--- NOTE | 2019-02-18 11:45 | PDOC.HOSPP ---
- Subjective Encounter Date: 02/18/19 Encounter Time: 11:44 Subjective: awake, alert - Objective Vital Signs & Weight: Vital Signs (12 hours) Temp Pulse Resp BP Pulse Ox 02/18/19 11:00 95.2 F L 02/18/19 09:30 94.9 F L 02/18/19 08:38 96 02/18/19 08:34 97 16 02/18/19 08:17 96.8 F L 02/18/19 08:05 96 02/18/19 07:35 88 20 107/58 L 88 L 02/18/19 05:20 97.8 F 90 16 95/57 L 96 Weight Weight 129 lb 11.2 oz Result Diagrams: 02/18/19 09:26 02/18/19 05:54 Additional Labs: Accuchecks 02/18/19 02/18/19 11:36 09:10 POC Glucose 287 H 334 H Hospitalist ROS - Medication Medications: Active Medications Generic Name Dose Route Start Last Admin Trade Name Freq PRN Reason Stop Dose Admin Albuterol/Ipratropium 3 ml 02/18/19 07:49 02/18/19 08:34 Duoneb NEB 3 ml [id number] PRN Administration SOB &/or Wheezing Apixaban 2.5 mg 02/18/19 09:00 02/18/19 09:15 Eliquis PO 2.5 mg BID AVNI Administration Aspirin 81 mg 02/18/19 09:00 02/18/19 09:14 Ecotrin PO 81 mg DAILY AVNI Administration Carvedilol 6.25 mg 02/18/19 08:00 02/18/19 09:15 Coreg PO 6.25 mg BID-WM AVNI Administration Ezetimibe 10 mg 02/18/19 09:00 02/18/19 09:15 Zetia PO 10 mg DAILY AVNI Administration Furosemide 40 mg 02/18/19 09:00 02/18/19 09:43 Lasix PO 40 mg DAILY AVNI Administration Insulin Human Isoph/Insulin Regular 6 units 02/18/19 09:00 02/18/19 09:16 Humulin 70/30 SC 6 unit QAM AVNI Administration Insulin Human Lispro 0 units 02/18/19 07:37 02/18/19 09:16 Humalog SC 5 unit .MILD SLIDING SCALE PRN Administration Mild Correctional Scale Isosorbide Mononitrate 30 mg 02/18/19 09:00 02/18/19 09:15 Imdur Er PO 30 mg DAILY AVNI Administration Montelukast Sodium 10 mg 02/18/19 09:00 02/18/19 09:15 Singulair PO 10 mg DAILY AVNI Administration Multivitamins 1 tab 02/18/19 09:00 02/18/19 09:15 Theragran PO 1 tab DAILY AVNI Administration Ondansetron HCl 4 mg 02/18/19 09:35 02/18/19 09:43 Zofran Odt PO 4 mg Q6H PRN Administration Nausea/Vomiting Oxybutynin Chloride 5 mg 02/18/19 09:00 02/18/19 09:15 Ditropan PO 5 mg BID AVNI Administration Ranolazine 500 mg 02/18/19 09:00 02/18/19 09:15 Ranexa PO 500 mg BID AVNI Administration Sacubitril/Valsartan 1 tab 02/18/19 09:00 02/18/19 09:15 Entresto 24 Mg-26 Mg Tablet PO 1 tab BID AVNI Administration - Exam Neck: no JVD Heart: RRR Respiratory - other findings: coarse BS Gastrointestinal: soft, normal bowel sounds Extremities: no edema Hosp A/P (1) Hypotension Status: Acute Qualifiers: Hypotension type: unspecified hypotension type Qualified Code(s): I95.9 - Hypotension, unspecified (2) Hypothermia Code(s): T68.XXXA - HYPOTHERMIA, INITIAL ENCOUNTER Status: Acute Qualifiers: Encounter type: initial encounter Qualified Code(s): T68.XXXA - Hypothermia , initial encounter (3) NSTEMI (non-ST elevated myocardial infarction) Code(s): I21.4 - NON-ST ELEVATION (NSTEMI) MYOCARDIAL INFARCTION Status: Acute (4) PNA (pneumonia) Code(s): J18.9 - PNEUMONIA, UNSPECIFIED ORGANISM Status: Acute Qualifiers: Laterality: unspecified laterality Lung location: unspecified part of lung - Plan move to CCU NS 5ooml bolus PNA protocol for CAP Cardiology consult 45 min spent on critical care
[2019-02-18] MEDS: Azithromycin 500 MG in Sodium Chloride 0.9% 250 ML 250 ML IVPB SCH (14:03)
[2019-02-18] MEDS: cefTRIAXone\\ROCEPHIN 1 GM in Sodium Chloride 0.9% 100 ML IVPB SCH (14:03)
--- NOTE | 2019-02-18 14:08 | CON ---
DATE OF CONSULTATION: 02/18/2019 REASON FOR CONSULTATION: Non-STEMI. PRIMARY SOFTWARE DEVELOPMENT ENGINEER: Keyonna Kevin MD HISTORY OF PRESENT ILLNESS: Ms. Gomez is a very pleasant 83-year-old white female, who comes to the hospital for chest pain. She has inoperable coronary artery disease since 2013 and has an ischemic cardiomyopathy with latest EF at about 25% to 30%. She had a similar presentation just a month ago when she came in for chest pain. Her troponin went up to 12. She was treated medically for this. She is back with a similar clinical picture. Currently, she is chest-pain free. Her troponin is up to 2 now. PAST MEDICAL HISTORY: 1. Inoperable multivessel coronary artery disease. 2. Hypertension. 3. Hyperlipidemia. 4. History of atrial fibrillation. 5. Diabetes. SURGICAL HISTORY: 1. Coronary artery bypass grafting twice in the past. 2. AICD placement. 3. Cholecystectomy. 4. L-spine surgery x4. 5. Right femur surgery. OUTPATIENT MEDICATIONS: 1. Zaroxolyn 5 mg a day. 2. Entresto 24/26 b.i.d. 3. NovoLog 70/30, 10 units subcu q.h.s. 4. Sublingual nitroglycerin. 5. NovoLog 6 units q.a.m. 6. Pravastatin 80 mg a day. 7. Protonix 40 mg a day. 8. Coreg 6.25 b.i.d. 9. Ranexa 500 mg b.i.d. 10. Montelukast 10 mg a day. 11. Eliquis 2.5 mg b.i.d. 12. Ditropan 5 mg b.i.d. 13. Imdur 30 mg a day. 14. Multivitamins. 15. Zetia. 16. Lasix 40 mg a day. 17. Aspirin 81 a day. ALLERGIES: NO KNOWN DRUG ALLERGIES. SOCIAL HISTORY: No alcohol, tobacco, or drugs. FAMILY HISTORY: Noncontributory. REVIEW OF SYSTEMS: A 12-point review of systems was done and was all negative unless states in the history of present illness. PHYSICAL EXAMINATION: VITAL SIGNS: Temperature 95.2, respiratory rate 13, saturating 100% on room air, blood pressure 90/46, and pulse 71. GENERAL: Awake, alert, and oriented x3. No distress. HEENT: Normocephalic and atraumatic. NECK: Supple. LUNGS: Clear. CARDIOVASCULAR: S1 and S2. No S3 or S4. No murmurs. ABDOMEN: Soft, positive bowel sounds. EXTREMITIES: No edema. SKIN: Warm and dry. LABORATORY WORK: Reviewed. CBC with a white count of 8.1, hemoglobin 13, hematocrit 41, and platelet count of 147. Coags; INR was 1.6. Chemistries; sodium was 120 on arrival, 124 now; BUN of 48; creatinine 1.67; glucose was in the 300s. Troponin up to 2.3 now. TSH is high at 5.3 with high thyroxine, and cortisol was normal. Chest x-ray showed mild congestive heart failure. 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 Mild to moderate MR, moderate TR, and severe pulmonary hypertension. ASSESSMENT: 1. Kao-OP-gitxlwliv myocardial infarction. 2. Multivessel severe coronary artery disease, nonoperable. 3. Hyponatremia. 4. Acute kidney injury on chronic kidney disease. 5. Hypotension. PLAN: 1. Agree with IV fluids. She received a dose of Zaroxolyn, which only p.r.n. and this may have made her a little hypotensive and hyponatremic and make her kidney injury as well. We will see how she does after IV fluids. Her blood pressure is already doing better after 250 mL. 2. Medical management for her lld-AP-egzrckzjj NH. Continue the Eliquis at 2.5 mg b.i.d. Continue ranolazine. Aspirin daily. 3. If she were to continue to be hypotensive and does not respond to further fluids, I would start Levophed first to keep the MAP above 60. 4. Thank you for letting us to participate in the care of your patient. Dr. Kevin, her primary powder shoveler, will follow up in the morning. Job ID: [id number]
[2019-02-18] MEDS ORDERED: Sodium Chloride 0.9% 500 ML IVPB SCH (14:30)
[2019-02-18] MEDS ORDERED: Norepinephrine 8 MG/0.9% NS 250 ML IVPB SCH (14:31)
--- NOTE | 2019-02-18 16:27 | PDOC.EVN ---
Event Note - Event Note Event Note: Dr Lozada's input
[2019-02-18] MEDS: Atorvastatin Calcium 20 MG TAB PO SCH (22:17)
[2019-02-19] MEDS: Non-Formulary Item 1 EACH (Insulin Aspart Prot/Insuln Asp [Novolog Mix 70-30 Flexpen Syrn SC SCH ×2 (00:59→22:07)
--- NOTE | 2019-02-19 08:07 | RAD ---
CHEST 1 VIEW: INDICATION: Small left pleural effusion. COMPARISON: Prior exam dated 02/18/2019. IMPRESSION: Improving pulmonary edema and bilateral pleural effusions. Persistent cardiomegaly and mild pulmonar y vascular congestion. Right subclavian central venous catheter is new. No definite pneumothorax is evident. AICD and midline sternotomy changes are stable. POS: BH
--- NOTE | 2019-02-19 09:10 | PDOC.HOSPP ---
- Subjective Encounter Date: 02/19/19 Encounter Time: 09:08 Subjective: alert, no chest pain, sob - Objective Vital Signs & Weight: Vital Signs (12 hours) Temp 02/19/19 07:00 98.2 F 02/19/19 04:00 98 F 02/19/19 00:00 98.2 F Weight Weight 133 lb 9.602 oz Most Recent Monitor Data Heart Rate from ECG 81 NIBP 122/49 NIBP BP-Mean 73 Respiration from ECG 15 SpO2 99 I&O: 02/18/19 02/19/19 02/20/19 06:59 06:59 06:59 Intake Total 1107.7 Output Total 100 Balance 1007.7 Result Diagrams: 02/18/19 09:26 02/18/19 05:54 Additional Labs: Accuchecks 02/19/19 02/18/19 02/18/19 06:43 21:20 16:18 POC Glucose 85 196 H 249 H 02/18/19 02/18/19 11:36 09:10 POC Glucose 287 H 334 H Hospitalist ROS - Medication Medications: Active Medications Generic Name Dose Route Start Last Admin Trade Name Freq PRN Reason Stop Dose Admin Albuterol/Ipratropium 3 ml 02/18/19 07:49 02/18/19 08:34 Duoneb NEB 3 ml [id number] PRN Administration SOB &/or Wheezing Apixaban 2.5 mg 02/18/19 09:00 02/18/19 22:17 Eliquis PO 2.5 mg BID AVNI Administration Aspirin 81 mg 02/18/19 09:00 02/18/19 09:14 Ecotrin PO 81 mg DAILY AVNI Administration Atorvastatin Calcium 20 mg 02/18/19 21:00 02/18/19 22:17 Lipitor PO 20 mg HS AVNI Administration Carvedilol 6.25 mg 02/18/19 08:00 02/18/19 16:49 Coreg PO Not Given BID-WM AVNI Ezetimibe 10 mg 02/18/19 09:00 02/18/19 09:15 Zetia PO 10 mg DAILY AVNI Administration Azithromycin 500 mg/ Sodium 250 mls @ 250 mls/hr 02/18/19 12:00 02/18/19 14: 03 Chloride IVPB 250 mls 1200 AVNI Administration Ceftriaxone Sodium 1 gm/ 100 mls @ 200 mls/hr 02/18/19 13:00 02/18/19 14:03 Sodium Chloride IVPB 100 mls 1300 AVNI Administration Norepinephrine Bitartrate 250 mls @ 0 mls/hr 02/18/19 14:31 02/19/19 02:24 Levophed IVPB 250 mls INF AVNI Administration Protocol Titrate Insulin Human Isoph/Insulin Regular 6 units 02/18/19 09:00 02/18/19 09:16 Humulin 70/30 SC 6 unit QAM AVNI Administration Insulin Human Isoph/Insulin Regular 10 units 02/18/19 21:00 02/18/19 22:19 Humulin 70/30 SC 10 unit HS AVNI Administration Insulin Human Lispro 0 units 02/18/19 07:37 02/18/19 16:45 Humalog SC 3 unit .MILD SLIDING SCALE PRN Administration Mild Correctional Scale Isosorbide Mononitrate 30 mg 02/18/19 09:00 02/18/19 09:15 Imdur Er PO 30 mg DAILY AVNI Administration Montelukast Sodium 10 mg 02/18/19 09:00 02/18/19 09:15 Singulair PO 10 mg DAILY AVNI Administration Multivitamins 1 tab 02/18/19 09:00 02/18/19 09:15 Theragran PO 1 tab DAILY AVNI Administration Non-Formulary Medication 10 units 02/18/19 21:00 02/19/19 00:59 Insulin Aspart Prot/Insuln Asp [Novolog Mix 70-30 Flexpen Syrn] SC Not Given HS [facility] Ondansetron HCl 4 mg 02/18/19 09:35 02/18/19 14:26 Zofran Odt PO 4 mg Q6H PRN Administration Nausea/Vomiting Oxybutynin Chloride 5 mg 02/18/19 09:00 02/18/19 22:17 Ditropan PO 5 mg BID AVNI Administration Pantoprazole Sodium 40 mg 02/18/19 21:00 02/18/19 22:17 Protonix PO 40 mg HS AVNI Administration Ranolazine 500 mg 02/18/19 09:00 02/18/19 22:22 Ranexa PO 500 mg BID AVNI Administration Sacubitril/Valsartan 1 tab 02/18/19 09:00 02/18/19 22:20 Entresto 24 Mg-26 Mg Tablet PO Not Given BID AVNI - Exam Neck: no JVD Heart: irregular, II/IV Respiratory - other findings: post basilar rales Gastrointestinal: soft, normal bowel sounds Extremities: 1+ LE edema Hosp A/P (1) NSTEMI (non-ST elevated myocardial infarction) Code(s): I21.4 - NON-ST ELEVATION (NSTEMI) MYOCARDIAL INFARCTION Status: Acute (2) PNA (pneumonia) Code(s): J18.9 - PNEUMONIA, UNSPECIFIED ORGANISM Status: Acute Qualifiers: Pneumonia type: due to Pneumococcus Laterality: unspecified laterality Lung location: unspecified part of lung Qualified Code(s): J13 - Pneumonia due to Streptococcus pneumoniae (3) Acute kidney failure Status: Acute Qualifiers: Acute renal failure type: unspecified Qualified Code(s): N17.9 - Acute kidney failure, unspecified (4) Hyponatremia Code(s): E87.1 - HYPO-OSMOLALITY AND HYPONATREMIA Status: Acute (5) CAD (coronary artery disease) Code(s): I25.10 - ATHSCL HEART DISEASE OF [place] CORONARY ARTERY W/O ANG PCTRS Status: Acute Qualifiers: Coronary Disease-Associated Artery/Lesion type: [place] artery [place] vs. transplanted heart: [place] heart Associated angina: with unstable angina Qualified Code(s): I25.110 - Atherosclerotic heart disease of [place] coronary artery with unstable angina pectoris - Plan hypotension resolved, still holding diuretic C&S pending, cont iv antibx cont entresto, etc, BASMET, discuss with cardiology
--- NOTE | 2019-02-19 09:29 | PRG ---
DATE OF SERVICE: 02/19/2019 SUBJECTIVE: Ms. Gomez is feeling better today. She is not having any angina. OBJECTIVE: VITAL SIGNS: Her blood pressure is 122/49, pulse is in the 80 range. LUNGS: Clear. CARDIAC: Normal S1, normal S2. ABDOMEN: Soft and nontender. EXTREMITIES: There is no edema. LABORATORY DATA: Troponin yesterday is 2.3. ASSESSMENT: 1. Status post non-ST elevation infarction. 2. Inoperable coronary artery disease. 3. Congestive heart failure, systolic, currently stable. 4. Renal failure. Creatinine 1.67 yesterday. PLAN: 1. Try to wean the Levophed today. Move her back to the telemetry. 2. Check basic metabolic tomorrow. 3. Medical therapy is the only option. Job ID: [id number]
[2019-02-19] MEDS: HumuLIN 70/30 (300 UNITS/3 ML VIAL) SC SCH ×2 (09:32→22:00)
[2019-02-19] MEDS: Ezetimibe 10 MG TAB PO SCH (09:33)
[2019-02-19] MEDS: Apixaban 2.5 MG TAB PO SCH ×2 (09:33→22:00)
[2019-02-19] MEDS: Oxybutynin 5 MG TAB PO SCH ×2 (09:34→22:01)
[2019-02-19] MEDS: Carvedilol 6.25 MG TAB PO SCH (09:35)
[2019-02-19] MEDS: Isosorbide Mononitrate (ER) 30 MG TAB PO SCH (09:35)
[2019-02-19] MEDS: Aspirin 81 mg Enteric Coated Tablet PO SCH (09:35)
[2019-02-19] MEDS: Montelukast Sodium 10 mg Tablet PO SCH (09:36)
[2019-02-19] MEDS: Multivit, Therapeutic 1 TAB PO SCH (09:36)
[2019-02-19 09:50] LABS: Anion Gap 13 mmol/L (10-20); BUN (Urea Nitrogen) 50 mg/dL (9.8-20.1); Calc. Creatinine Clearance 20 mL/min (70-130); Carbon Dioxide 25 mmol/L (23-31); Chloride 92 mmol/L (98-107); Estimated GFR-MDRD 24; Glucose 138 mg/dL (83-110); Potassium 4.1 mmol/L (3.5-5.1); Sodium 126 mmol/L (136-145)
[2019-02-19] MEDS: Azithromycin 500 MG in Sodium Chloride 0.9% 250 ML 250 ML IVPB SCH (11:12)
[2019-02-19] MEDS: cefTRIAXone\\ROCEPHIN 1 GM in Sodium Chloride 0.9% 100 ML IVPB SCH (12:23)
--- NOTE | 2019-02-19 16:37 | CON ---
DATE OF CONSULTATION: 02/19/2019 SERVICE: Pulmonary Medicine. REASON FOR CONSULTATION: ICU patient. HISTORY OF PRESENT ILLNESS: The patient is an 83-year-old white female with past medical history significant for coronary artery disease, who presented to the hospital with complaints of chest discomfort. This happened 4 hours prior to presentation, had some radiation into the left neck. She had some nausea and dry heaves. She was brought into the emergency department. At that location, she was suspected to have an infection and initiated on antibiotics. Central line was placed, she was initiated on Levophed. She was thought to be a little volume down and given a couple of small boluses of fluid. She denies any current fevers or chills. She is not having any current chest discomfort. Prior to this event, she was not coughing up any sputum, did not have any recent sick contacts, and denies any significant dysuria, frequency, hot red swollen joints, or recent rashes. PAST MEDICAL HISTORY: 1. Coronary artery disease, severe and nonoperable. 2. Hypertension. 3. Dyslipidemia. 4. Atrial fibrillation. 5. Diabetes mellitus, type 1. 6. Ischemic cardiomyopathy. PAST SURGICAL HISTORY: 1. Coronary artery bypass graft. 2. AICD placement. 3. Cholecystectomy. 4. Lumbar spine surgery x4. 5. Right femur surgery. ALLERGIES: NO KNOWN DRUG ALLERGIES. MEDICATIONS: List of her inpatient medications was reviewed. No specific updates were made at this time. SOCIAL HISTORY: Negative for alcohol, tobacco, or illicit drug use currently. She has no exposure to chemicals, dust, asbestos, or tuberculosis. FAMILY HISTORY: Noncontributory. REVIEW OF SYSTEMS: General; head, ears, eyes, nose, throat; cardiovascular; respiratory; GI; ; musculoskeletal; neurologic; and skin are negative except as mentioned in the HPI. PHYSICAL EXAMINATION: VITAL SIGNS: Afebrile. She did have a period of hypothermia. Pulse 77, blood pressure 56/37, respirations 15, and saturation 99% currently on 2 L nasal cannula. GENERAL: The patient is awake and alert, in no apparent distress. LUNGS: Crackling is present. No prolonged expiratory phase, wheezing, or rhonchi appreciated. HEART: Normal rate and regular. ABDOMEN: Soft, nontender, and nondistended. Bowel sounds are positive. MUSCULOSKELETAL: No cyanosis or clubbing. There is no pitting edema throughout. NEUROLOGIC: Grossly nonfocal. LABORATORY DATA: WBC 8.1, hemoglobin 13.9, and platelets 147,000. Neutrophil count is normal. INR 1.6. Creatinine 1.97, which is above baseline of 1. Sodium 126 , and gently improving. Anion gap remains low. Bicarb is normal. Troponins were up trending to 2.33. Cortisol level and TSH were near normal. Blood cultures x2 are unremarkable. IMAGING: Chest x-ray demonstrates cardiomegaly. Minimal pulmonary vascular congestion is noted. There is likely a right-sided pleural effusion. There may be a small pleural effusion on the left, but I do not see any obvious consolidating lesions present. Right subclavian central venous catheter is in a good position. ASSESSMENT: 1. Acute hypoxic respiratory failure. 2. [id number] myocardial infarction. 3. Acute kidney injury. 4. Septic shock, possible. 5. Healthcare-associated pneumonia, possible. DISCUSSION AND PLAN: We will continue our supportive care including antibiotics. We will be cautious with blood pressure medications. We are going to wean Levophed away as tolerated. Pulmonary/Critical Care will continue to follow along while the patient remains in the ICU. I do not think she is tolerating the Coreg and we will back off on the dose slightly. 70 minutes have been devoted to this patient in various activities. I personally reviewed all imaging studies and laboratory data noted within this document. For fifty percent of this time, I was interacting with the patient at the bedside or coordinating care with the care team. For the remainder of the time I was immediately available to the patient in the hospital unit. Job ID: [id number] MTDD
[2019-02-19] MEDS: Carvedilol 3.125 MG TAB PO SCH (16:52)
[2019-02-19] MEDS: Atorvastatin Calcium 20 MG TAB PO SCH (22:00)
[2019-02-19] MEDS: Norepinephrine 8 MG in Dextrose 5% in Water 242 ML IVPB SCH (23:05)
--- NOTE | 2019-02-20 07:57 | PDOC.HOSPP ---
- Subjective Encounter Date: 02/20/19 Encounter Time: 07:52 Subjective: a, feels very well - Objective Vital Signs & Weight: Weight Weight 136 lb 0.403 oz Most Recent Monitor Data Heart Rate from ECG 76 NIBP 106/54 NIBP BP-Mean 71 Respiration from ECG 16 SpO2 96 I&O: 02/19/19 02/20/19 02/21/19 06:59 06:59 06:59 Intake Total 1107.7 1787 Output Total 100 450 Balance 1007.7 1337 Result Diagrams: 02/18/19 09:26 02/19/19 09:21 Additional Labs: Accuchecks 02/20/19 02/19/19 02/19/19 05:35 22:02 16:08 POC Glucose 63 L 186 H 117 H 02/19/19 11:07 POC Glucose 136 H Hospitalist ROS - Medication Medications: Active Medications Generic Name Dose Route Start Last Admin Trade Name Freq PRN Reason Stop Dose Admin Albuterol/Ipratropium 3 ml 02/18/19 07:49 02/18/19 08:34 Duoneb NEB 3 ml [id number] PRN Administration SOB &/or Wheezing Apixaban 2.5 mg 02/18/19 09:00 02/19/19 22:00 Eliquis PO 2.5 mg BID AVNI Administration Aspirin 81 mg 02/18/19 09:00 02/19/19 09:35 Ecotrin PO 81 mg DAILY AVNI Administration Atorvastatin Calcium 20 mg 02/18/19 21:00 02/19/19 22:00 Lipitor PO 20 mg HS AVNI Administration Carvedilol 3.125 mg 02/19/19 17:00 02/19/19 16:52 Coreg PO Not Given BID-WM AVNI Ezetimibe 10 mg 02/18/19 09:00 02/19/19 09:33 Zetia PO 10 mg DAILY AVNI Administration Azithromycin 500 mg/ Sodium 250 mls @ 250 mls/hr 02/18/19 12:00 02/19/19 11: 12 Chloride IVPB 250 mls 1200 AVNI Administration Ceftriaxone Sodium 1 gm/ 100 mls @ 200 mls/hr 02/18/19 13:00 02/19/19 12:23 Sodium Chloride IVPB 100 mls 1300 AVNI Administration Norepinephrine Bitartrate 8 mg 250 mls @ 0 mls/hr 02/19/19 23:00 02/19/19 23: 05 / Dextrose/Water IVPB 250 mls INF AVNI Administration Protocol Titrate Insulin Human Isoph/Insulin Regular 6 units 02/18/19 09:00 02/19/19 09:32 Humulin 70/30 SC 6 unit QAM AVNI Administration Insulin Human Isoph/Insulin Regular 10 units 02/18/19 21:00 02/19/19 22:00 Humulin 70/30 SC 10 unit HS AVNI Administration Insulin Human Lispro 0 units 02/18/19 07:37 02/18/19 16:45 Humalog SC 3 unit .MILD SLIDING SCALE PRN Administration Mild Correctional Scale Isosorbide Mononitrate 30 mg 02/18/19 09:00 02/19/19 09:35 Imdur Er PO 30 mg DAILY AVNI Administration Montelukast Sodium 10 mg 02/18/19 09:00 02/19/19 09:36 Singulair PO 10 mg DAILY AVNI Administration Multivitamins 1 tab 02/18/19 09:00 02/19/19 09:36 Theragran PO 1 tab DAILY AVNI Administration Ondansetron HCl 4 mg 02/18/19 09:35 02/18/19 14:26 Zofran Odt PO 4 mg Q6H PRN Administration Nausea/Vomiting Oxybutynin Chloride 5 mg 02/18/19 09:00 02/19/19 22:01 Ditropan PO 5 mg BID AVNI Administration Pantoprazole Sodium 40 mg 02/18/19 21:00 02/19/19 22:01 Protonix PO 40 mg HS AVNI Administration Ranolazine 500 mg 02/18/19 09:00 02/19/19 22:01 Ranexa PO 500 mg BID AVNI Administration Sacubitril/Valsartan 1 tab 02/18/19 09:00 02/19/19 22:01 Entresto 24 Mg-26 Mg Tablet PO 1 tab BID AVNI Administration - Exam Neck: no JVD Heart: RRR, II/IV Respiratory: CTAB Respiratory - other findings: except minimal basilar rales Gastrointestinal: soft, non-tender, normal bowel sounds Extremities: no edema Hosp A/P (1) NSTEMI (non-ST elevated myocardial infarction) Code(s): I21.4 - NON-ST ELEVATION (NSTEMI) MYOCARDIAL INFARCTION Status: Acute (2) PNA (pneumonia) Code(s): J18.9 - PNEUMONIA, UNSPECIFIED ORGANISM Status: Acute Qualifiers: Pneumonia type: due to Pneumococcus Laterality: unspecified laterality Lung location: unspecified part of lung Qualified Code(s): J13 - Pneumonia due to Streptococcus pneumoniae (3) Acute kidney failure Status: Acute Qualifiers: Acute renal failure type: unspecified Qualified Code(s): N17.9 - Acute kidney failure, unspecified (4) Hyponatremia Code(s): E87.1 - HYPO-OSMOLALITY AND HYPONATREMIA Status: Acute (5) CAD (coronary artery disease) Code(s): I25.10 - ATHSCL HEART DISEASE OF [place] CORONARY ARTERY W/O ANG PCTRS Status: Acute Qualifiers: Coronary Disease-Associated Artery/Lesion type: [place] artery [place] vs. transplanted heart: [place] heart Associated angina: with unstable angina Qualified Code(s): I25.110 - Atherosclerotic heart disease of [place] coronary artery with unstable angina pectoris - Plan patient on low dose levofed for BP support creat cont to rise, pressors?, volume contraction? C&S neg, no fever, will cont iv antibx 1 more day cont entresto, hold coreg? discuss with cardiology
[2019-02-20] MEDS: Carvedilol 3.125 MG TAB PO SCH ×2 (08:33→17:28)
[2019-02-20] MEDS: Apixaban 2.5 MG TAB PO SCH ×2 (08:34→20:28)
[2019-02-20] MEDS: Isosorbide Mononitrate (ER) 30 MG TAB PO SCH (08:35)
[2019-02-20] MEDS: Aspirin 81 mg Enteric Coated Tablet PO SCH (08:35)
[2019-02-20] MEDS: Montelukast Sodium 10 mg Tablet PO SCH (08:35)
[2019-02-20] MEDS: Multivit, Therapeutic 1 TAB PO SCH (08:35)
[2019-02-20] MEDS: Ezetimibe 10 MG TAB PO SCH (08:35)
[2019-02-20] MEDS: Oxybutynin 5 MG TAB PO SCH ×2 (08:36→20:29)
[2019-02-20] MEDS: HumuLIN 70/30 (300 UNITS/3 ML VIAL) SC SCH ×2 (08:37→20:30)
[2019-02-20] MEDS: Azithromycin 500 MG in Sodium Chloride 0.9% 250 ML 250 ML IVPB SCH (11:36)
[2019-02-20] MEDS: HumaLOG 300 UNITS/3 ML VIAL SC PRN ×2 (11:51→17:42)
[2019-02-20] MEDS: cefTRIAXone\\ROCEPHIN 1 GM in Sodium Chloride 0.9% 100 ML IVPB SCH (13:43)
--- NOTE | 2019-02-20 13:43 | PRG ---
DATE OF SERVICE: 02/20/2019 SUBJECTIVE: Kareen Gomez says she is feeling better. She is still on low dose of Levophed. OBJECTIVE: LUNGS: Clear anteriorly and laterally. HEART: Regular rhythm. ABDOMEN: Soft. Chest x-ray from 2 days ago was reviewed. It is most suggestive of cardiogenic pulmonary edema. Chest x-ray done yesterday showed improved edema. There is a concern that perhaps some of these infiltrates are infectious, so she is on IV antimicrobial therapy. Intake and output is positive 2337 including yesterday and today. IMPRESSION: 1. Possible pneumonia. 2. History of inoperable coronary artery disease. 3. Congestive heart failure. Radiographically improved overnight. She still has pressor requirements at a low dose. Once she is weaned off the pressors, she can be transferred out of the Critical Care Unit. She does have chronic renal insufficiency. We will need to watch her intake and output. Job ID: [id number]
[2019-02-20] MEDS: Norepinephrine 8 MG in Dextrose 5% in Water 242 ML IVPB SCH (17:42)
[2019-02-20] MEDS: Atorvastatin Calcium 20 MG TAB PO SCH (20:29)
[2019-02-21] MEDS ORDERED: Carvedilol 3.125 MG TAB ONE (07:42)
[2019-02-21] MEDS ORDERED: Aspirin 81 mg Enteric Coated Tablet ONE (07:43)
[2019-02-21] MEDS: Apixaban 2.5 MG TAB PO SCH ×2 (13:45→20:59)
[2019-02-21] MEDS: Aspirin 81 mg Enteric Coated Tablet PO SCH (13:45)
[2019-02-21] MEDS: Carvedilol 3.125 MG TAB PO SCH ×2 (13:45→18:46)
[2019-02-21] MEDS: Ezetimibe 10 MG TAB PO SCH (13:45)
[2019-02-21] MEDS: Montelukast Sodium 10 mg Tablet PO SCH (13:46)
[2019-02-21] MEDS: Isosorbide Mononitrate (ER) 30 MG TAB PO SCH (13:46)
[2019-02-21] MEDS: HumuLIN 70/30 (300 UNITS/3 ML VIAL) SC SCH ×2 (13:46→20:56)
[2019-02-21] MEDS: Multivit, Therapeutic 1 TAB PO SCH (13:47)
[2019-02-21] MEDS ORDERED: Albumin 25% 25 GM/100 ML BOT IVPB SCH (13:47)
[2019-02-21] MEDS: Oxybutynin 5 MG TAB PO SCH ×2 (13:48→21:25)
[2019-02-21] MEDS: Azithromycin 500 MG in Sodium Chloride 0.9% 250 ML 250 ML IVPB SCH (13:48)
[2019-02-21] MEDS: cefTRIAXone\\ROCEPHIN 1 GM in Sodium Chloride 0.9% 100 ML IVPB SCH (14:26)
[2019-02-21] MEDS: Nystatin 500,000 UNITS/5 ML UDCUP SSW SCH ×2 (14:27→20:59)
--- NOTE | 2019-02-21 15:49 | RAD ---
PORTABLE CHEST: HISTORY: Respiratory distress. Evaluation for infiltrate. COMPARISON: 02/19/2019 FINDINGS: Heart size is enlarged with postop sternotomy changes. Pulmonary vessels are engorged with increased perihilar lung markings. No confluent infiltrative process is seen. A defibrillator device is present . A right sided central line is noted. IMPRESSION: Cardiomegaly with some mild congestive heart failure type changes. POS: DAISY
[2019-02-21] MEDS ORDERED: Furosemide 40 MG/4 ML VIAL SLOW IVP SCH (17:15)
[2019-02-21] MEDS: HumaLOG 300 UNITS/3 ML VIAL SC PRN ×2 (17:26→20:56)
--- NOTE | 2019-02-21 17:40 | PDOC.EVN ---
Event Note - Event Note Event Note: CXR- adverse CHF- 1 dose iv lasix. discuss with cardiology
[2019-02-21 17:47] LABS: Anion Gap 11 mmol/L (10-20); BUN (Urea Nitrogen) 32 mg/dL (9.8-20.1); Calc. Creatinine Clearance 40 mL/min (70-130); Calcium 8.5 mg/dL (7.8-10.44); Carbon Dioxide 24 mmol/L (23-31); Chloride 95 mmol/L (98-107); Estimated GFR-MDRD 51; Potassium 4.3 mmol/L (3.5-5.1)
[2019-02-21 17:48] LABS: Glucose 242 mg/dL (83-110); Sodium 126 mmol/L (136-145)
--- NOTE | 2019-02-21 18:02 | PRG ---
DATE OF SERVICE: 02/21/2019 SUBJECTIVE: Ms. Gomez is doing better. No chest pain or pressure. Blood pressure, however, still low. She is still on Levophed. OBJECTIVE: VITAL SIGNS: Blood pressure 101/61, pulse 70. LUNGS: Clear. CARDIAC: Normal S1 and normal S2. ABDOMEN: Soft, nontender. ASSESSMENT: 1. Inoperable coronary artery disease. 2. Hypotension, still on Levophed. PLAN: 1. Try to wean Levophed tomorrow. 2. Carvedilol discontinued. 3. Reassess tomorrow. We will need to hold Entresto until the patient is more stable. Job ID: [id number]
--- NOTE | 2019-02-21 19:15 | PRG ---
DATE OF SERVICE: 02/21/2019 SUBJECTIVE: Ms. Gomez said she was feeling better. She was sitting up watching a movie today. She is still on low-dose Levophed. OBJECTIVE: VITAL SIGNS: Blood pressure this afternoon is 101/61, heart rate is in 80s, and respiratory rates in the teens. LUNGS: Remarkable for decreased breath sounds at the right base. HEART: Regular rhythm. ABDOMEN: Soft. LABORATORY DATA: Chest x-ray today shows a small right effusion. IMPRESSION AND PLAN: Chronic congestive heart failure with inoperable coronary artery disease. I actually doubt she has pneumonia. I think it is reasonable probably to switch her to p.o. antimicrobial therapy in the morning. I am not sure if we give her Lasix, it will be able to wean her off Levophed. I will continue to follow. May need to hold some of her cardiac medications, if these had been yet done at this time. Job ID: [id number]
[2019-02-21] MEDS: Norepinephrine 8 MG in Dextrose 5% in Water 242 ML IVPB SCH (19:38)
[2019-02-21 19:48] LABS: Platelet Count 149 thou/uL (130-400)
[2019-02-21] MEDS: Atorvastatin Calcium 20 MG TAB PO SCH (20:59)
[2019-02-22 07:19] VITALS: BMI 25.8
[2019-02-22] MEDS ORDERED: Furosemide 20 MG/2 ML VIAL SLOW IVP SCH (09:00)
--- NOTE | 2019-02-22 09:08 | RAD ---
Chest AP view INDICATION: CHF COMPARISON: February 21, 2019 FINDINGS: Lungs:There is improvement in the central edema pattern. Cardiac silhouette:[id number] cardiomegaly persists Pulmonary vasculature:There is mild pulmonary vascular congestion. This is improved from the comparis on exam. Pleural spaces:Small bilateral pleural effusions have improved. Tiny effusions remain. Upper abdomen:There is partial visualization of an IVC filter and lumbar spinal instrumentation. The dual lead AICD and right subclavian central venous catheter is unchanged. Osseous structures: No acute osseous abnormality. Additional findings:None. IMPRESSION: Improving CHF
--- NOTE | 2019-02-22 09:17 | PRG ---
DATE OF SERVICE: 02/22/2019 SUBJECTIVE: Ms. Gomez feels better today. She is not short of breath. No chest pain. OBJECTIVE: VITAL SIGNS: Blood pressure 111/58, pulse 70. She is off Levophed. LUNGS: Clear. She has a few rales at the bases. CARDIAC: Normal S1. Normal S2. ABDOMEN: Soft. Nontender. ASSESSMENT: 1. Congestive heart failure, systolic, acute on chronic, improved. 2. Status post non-ST elevation infarction. 3. Inoperable coronary artery disease. PLAN: 1. Give her one dose of Lasix intravenously, then torsemide tomorrow. 2. She is off Entresto for now due to a low blood pressure. Okay to move to telemetry. Agree with current code status of do not resuscitate, comfort care only. Job ID: [id number]
[2019-02-22] MEDS: Potassium Chloride 10 MEQ TAB PO SCH (09:42)
[2019-02-22] MEDS: Nystatin 500,000 UNITS/5 ML UDCUP SSW SCH ×3 (09:42→20:46)
[2019-02-22] MEDS: Oxybutynin 5 MG TAB PO SCH ×2 (09:42→20:46)
[2019-02-22] MEDS: Apixaban 2.5 MG TAB PO SCH ×2 (09:42→20:46)
[2019-02-22] MEDS: Aspirin 81 mg Enteric Coated Tablet PO SCH (09:42)
[2019-02-22] MEDS: Ezetimibe 10 MG TAB PO SCH (09:42)
[2019-02-22] MEDS: Multivit, Therapeutic 1 TAB PO SCH (09:42)
[2019-02-22] MEDS: Montelukast Sodium 10 mg Tablet PO SCH (09:42)
[2019-02-22] MEDS: HumuLIN 70/30 (300 UNITS/3 ML VIAL) SC SCH ×2 (09:43→20:47)
[2019-02-22] MEDS: Isosorbide Mononitrate (ER) 30 MG TAB PO SCH ×2 (09:43→09:57)
[2019-02-22] MEDS ORDERED: Morphine 2 MG/ML SYRINGE SLOW IVP PRN (11:02)
[2019-02-22] MEDS: Azithromycin 500 MG in Sodium Chloride 0.9% 250 ML 250 ML IVPB SCH (13:29)
[2019-02-22] MEDS: cefTRIAXone\\ROCEPHIN 1 GM in Sodium Chloride 0.9% 100 ML IVPB SCH (13:30)
[2019-02-22] MEDS: HumaLOG 300 UNITS/3 ML VIAL SC PRN (18:05)
--- NOTE | 2019-02-22 18:53 | PDOC.HOSPP ---
- Subjective Encounter Date: 02/22/19 Encounter Time: 18:25 Subjective: f/u for acute/chronic systolic CHF, NSTEMI and inoperable CAD. Feels ok overall and no SOB currently. Had episode of CP this am. Sat in chair for several hours today. - Objective Vital Signs & Weight: Vital Signs (12 hours) Temp Pulse Ox 02/22/19 16:00 98.1 F 02/22/19 12:00 97.9 F 02/22/19 09:00 97.1 F L 02/22/19 08:00 99 02/22/19 07:53 100 Weight Weight 136 lb 10.986 oz Most Recent Monitor Data Heart Rate from ECG 79 NIBP 100/50 NIBP BP-Mean 66 Respiration from ECG 14 SpO2 100 I&O: 02/21/19 02/22/19 02/23/19 06:59 06:59 06:59 Intake Total 1171.2 1786 680 Output Total 400 825 250 Balance 771.2 961 430 Result Diagrams: 02/21/19 19:40 02/21/19 03:30 Additional Labs: Accuchecks 02/22/19 02/22/19 02/22/19 17:05 10:04 05:49 POC Glucose 187 H 124 H 76 02/21/19 20:56 POC Glucose 160 H Microbiology 02/18/19 13:21 Venous blood - Right Hand Blood Culture - Preliminary NO GROWTH AT 48 HOURS 02/18/19 12:43 Venous blood - Right Arm Blood Culture - Preliminary NO GROWTH AT 48 HOURS Laboratory Tests 02/18/19 02/18/19 02/19/19 01:54 05:54 09:21 Sodium 120 L 124 L 126 L Creatinine 1.49 H 1.67 H 1.97 H Radiology Reviewed by me: Yes (PCXR - decreased central pulm edema) EKG Reviewed by me: Yes (Tele - SR) Hospitalist ROS - Medication Medications: Active Medications Generic Name Dose Route Start Last Admin Trade Name Freq PRN Reason Stop Dose Admin Albuterol/Ipratropium 3 ml 02/18/19 07:49 02/18/19 08:34 Duoneb NEB 3 ml [id number] PRN Administration SOB &/or Wheezing Apixaban 2.5 mg 02/18/19 09:00 02/22/19 09:42 Eliquis PO 2.5 mg BID AVNI Administration Aspirin 81 mg 02/18/19 09:00 02/22/19 09:42 Ecotrin PO 81 mg DAILY AVNI Administration Atorvastatin Calcium 20 mg 02/18/19 21:00 02/21/19 20:59 Lipitor PO 20 mg HS AVNI Administration Ezetimibe 10 mg 02/18/19 09:00 02/22/19 09:42 Zetia PO 10 mg DAILY AVNI Administration Norepinephrine Bitartrate 8 mg 250 mls @ 0 mls/hr 02/19/19 23:00 02/21/19 19: 38 / Dextrose/Water IVPB 250 mls INF AVNI Administration Protocol Titrate Insulin Human Isoph/Insulin Regular 6 units 02/18/19 09:00 02/22/19 09:43 Humulin 70/30 SC 6 unit QAM AVNI Administration Insulin Human Isoph/Insulin Regular 10 units 02/18/19 21:00 02/21/19 20:56 Humulin 70/30 SC 10 unit HS AVNI Administration Insulin Human Lispro 0 units 02/18/19 07:37 02/22/19 18:05 Humalog SC 2 unit .MILD SLIDING SCALE PRN Administration Mild Correctional Scale Isosorbide Mononitrate 30 mg 02/18/19 09:00 02/22/19 09:57 Imdur Er PO 30 mg DAILY AVNI Administration Montelukast Sodium 10 mg 02/18/19 09:00 02/22/19 09:42 Singulair PO 10 mg DAILY AVNI Administration Morphine Sulfate 2 mg 02/22/19 11:02 02/22/19 11:05 Morphine SLOW IVP 2 mg Q2H PRN Administration PAIN (MODERATE TO SEVERE) Multivitamins 1 tab 02/18/19 09:00 02/22/19 09:42 Theragran PO 1 tab DAILY REPLACED BY [facility] Administration Nystatin 500,000 units 02/21/19 15:00 02/22/19 15:11 Mycostatin SSW 500,000 units TID AVNI Administration Ondansetron HCl 4 mg 02/18/19 09:35 02/18/19 14:26 Zofran Odt PO 4 mg Q6H PRN Administration Nausea/Vomiting Oxybutynin Chloride 5 mg 02/18/19 09:00 02/22/19 09:42 Ditropan PO 5 mg BID AVNI Administration Pantoprazole Sodium 40 mg 02/18/19 21:00 02/21/19 20:59 Protonix PO 40 mg HS AVNI Administration Potassium Chloride 10 meq 02/22/19 08:00 02/22/19 09:42 Klor-Con 10 PO 10 meq QAM-WM AVNI Administration Ranolazine 500 mg 02/18/19 09:00 02/22/19 09:42 Ranexa PO 500 mg BID AVNI Administration - Exam General Appearance: NAD, awake alert Eye: PERRL, anicteric sclera ENT: normocephalic atraumatic, no oropharyngeal lesions Neck: supple, symmetric, no JVD, no thyromegaly Heart: RRR, no gallops, no rubs, normal peripheral pulses Respiratory - other findings: few basilar crackles o/w clear Gastrointestinal: soft, non-tender, non-distended, normal bowel sounds, no palpable masses Extremities: no cyanosis, no clubbing, 1+ LE edema Skin: normal turgor, no lesions Neurological: cranial nerve grossly intact, no new deficit Musculoskeletal: normal tone, normal strength Psychiatric: normal affect, A&O x 3 Hosp A/P (1) Acute on chronic systolic (congestive) heart failure Code(s): I50.23 - ACUTE ON CHRONIC SYSTOLIC (CONGESTIVE) HEART FAILURE Status : Acute Plan: EF 20-25%, continue Torsemide, monitor I/O's, daily weight, stabilizing, Entresto on hold due to hypotension (2) Acute kidney failure Status: Acute Qualifiers: Acute renal failure type: unspecified Qualified Code(s): N17.9 - Acute kidney failure, unspecified Plan: Resolving, avoid nephrotoxic meds and limit contrast exposure (3) CAD (coronary artery disease) Code(s): I25.10 - ATHSCL HEART DISEASE OF [place] CORONARY ARTERY W/O ANG PCTRS Status: Chronic Qualifiers: Coronary Disease-Associated Artery/Lesion type: [place] artery [place] vs. transplanted heart: [place] heart Associated angina: with unstable angina Qualified Code(s): I25.110 - Atherosclerotic heart disease of [place] coronary artery with unstable angina pectoris Plan: Inoperable CAD, continue maximal med mgmt (4) Hyponatremia Code(s): E87.1 - HYPO-OSMOLALITY AND HYPONATREMIA Status: Acute Plan: Acute on chronic likely multifactorial including volume status and hyperglycemia , serial Na+ monitoring (5) NSTEMI (non-ST elevated myocardial infarction) Code(s): I21.4 - NON-ST ELEVATION (NSTEMI) MYOCARDIAL INFARCTION Status: Acute Plan: Med mgmt as CAD is inoperable - Plan PT/OT, medical social worker, out of bed/ambulate, DVT proph w/SCDs Stable currently Continue Torsemide 20mg daily Continue ASA/Lipitor/Nitrates OOB with PT for mobilization AM lab: H/H, creatinine q3 days
[2019-02-22] MEDS: Atorvastatin Calcium 20 MG TAB PO SCH (20:46)
[2019-02-22] MEDS: Cefuroxime Axetil 250 MG TAB PO SCH (20:46)
[2019-02-23] MEDS ORDERED: Sodium Chloride 0.9% 500 ML IVPB SCH (02:45)
--- NOTE | 2019-02-23 08:19 | PRG ---
DATE OF SERVICE: 02/22/2019 SUBJECTIVE: Ms. Gomez was weaned off her Levophed by this morning. OBJECTIVE: GENERAL: She is in no distress. VITAL SIGNS: Afebrile, heart rates in the 70s, blood pressure respiratory rate 18. All cultures are negative. LUNGS: Clear. HEART: Regular rhythm. ABDOMEN: Soft. Hemoglobin , it was 13.9 two days ago. electrolytes today. IMPRESSION: Chronic congestive heart failure with inoperable coronary artery disease. I doubt she has pneumonia, but I will go ahead and switch her to p.o. antimicrobial therapy in the outside chance that some of this was infection mediated. Chest radiographs improving, congestive heart failure. I will just put her on some days. Will follow. She is stable to move out of the Critical Care Unit. Job ID: [id number]
[2019-02-23] MEDS: Apixaban 2.5 MG TAB PO SCH (09:02)
[2019-02-23] MEDS: Potassium Chloride 10 MEQ TAB PO SCH (09:02)
[2019-02-23] MEDS: HumuLIN 70/30 (300 UNITS/3 ML VIAL) SC SCH ×2 (09:02→21:11)
[2019-02-23] MEDS: Cefuroxime Axetil 250 MG TAB PO SCH ×2 (09:03→21:11)
[2019-02-23] MEDS: Nystatin 500,000 UNITS/5 ML UDCUP SSW SCH ×3 (09:03→21:11)
[2019-02-23] MEDS: Montelukast Sodium 10 mg Tablet PO SCH (09:03)
[2019-02-23] MEDS: Isosorbide Mononitrate (ER) 30 MG TAB PO SCH (09:03)
[2019-02-23] MEDS: Torsemide 20 MG TAB PO SCH (09:03)
[2019-02-23] MEDS: Aspirin 81 mg Enteric Coated Tablet PO SCH (09:03)
[2019-02-23] MEDS: Multivit, Therapeutic 1 TAB PO SCH (09:03)
[2019-02-23] MEDS: Oxybutynin 5 MG TAB PO SCH ×2 (09:03→21:11)
[2019-02-23] MEDS: Ezetimibe 10 MG TAB PO SCH (09:03)
--- NOTE | 2019-02-23 09:44 | PRG ---
DATE OF SERVICE: 02/23/2019 SUBJECTIVE: Ms. Gomez had low blood pressure last night. She said she had a difficult night. Her pressure is recorded at 89/48 at 3:30 a.m. OBJECTIVE: VITAL SIGNS: Blood pressure most recently 105/56, pulse 80. LUNGS: Clear anteriorly, posterior. There is some rales, I think some of that could be pulmonary. CARDIAC: Normal S1. Normal S2. ABDOMEN: Soft and nontender. EXTREMITIES: There is no significant edema. LABORATORY DATA: Hemoglobin on the 4th was 10. ASSESSMENT: 1. Severe inoperable coronary artery disease. 2. Congestive heart failure, systolic, chronic. 3. Hypotension. PLAN: 1. She is on isosorbide. 2. She is on apixaban and aspirin. 3. Ranolazine. 4. Torsemide. 5. Continue current medical regimen. She did require morphine for pain relief yesterday. Prognosis is poor. Goal of therapy is reduction in pain and suffering. Job ID: [id number]
[2019-02-23 10:35] LABS: #Eosinphils 0.2 thou/uL (0.0-0.7); #Lymphocytes 1.6 thou/uL (1.20-3.40); #Monocytes 0.4 thou/uL (0.11-0.59); #Neutrophils 2.2 thou/uL (1.40-6.50); %Basophils 0.8 % (0.0-1.0); %Eosinophils 4.1 % (0.0-10.0); %Lymphocytes 35.9 % (21.0-51.0); %Monocytes 9.4 % (0.0-10.0); %Neutrophils 49.9 % (42.0-75.0); Hemoglobin 9.8 g/dL (12.0-16.0); Mean Corpuscular Hemoglobin 32.4 pg (27.0-31.0); Mean Corpuscular Volume 95.3 fL (78.0-98.0); Mean Platelet Volume 8.8 fL (7.4-10.4); Platelet Count 164 thou/uL (130-400); RBC Distribution Width 12.6 % (11.5-14.5); Red Blood Cell (RBC) Count 3.03 mill/uL (4.20-5.40); White Blood Cell (WBC) Count 4.4 thou/uL (4.8-10.8)
[2019-02-23 10:53] LABS: Anion Gap 10 mmol/L (10-20); BUN (Urea Nitrogen) 32 mg/dL (9.8-20.1); Calc. Creatinine Clearance 32 mL/min (70-130); Calcium 8.3 mg/dL (7.8-10.44); Carbon Dioxide 25 mmol/L (23-31); Chloride 98 mmol/L (98-107); Estimated GFR-MDRD 37; Glucose 127 mg/dL (83-110); Potassium 4.7 mmol/L (3.5-5.1); Sodium 128 mmol/L (136-145)
--- NOTE | 2019-02-23 12:57 | PDOC.HOSPP ---
- Subjective Encounter Date: 02/23/19 Encounter Time: 12:50 Subjective: f/u for CHF exacerbation and CAD medically managed. Nursing reports hypotension overnight but stable currently. - Objective Vital Signs & Weight: Vital Signs (12 hours) Temp Pulse Resp BP BP Pulse Ox 02/23/19 11:30 97.9 F 78 16 101/50 L 100 02/23/19 07:36 97.7 F 81 16 105/56 L 100 02/23/19 03:47 97.4 F L 82 16 93/55 L 99 02/23/19 03:35 77 16 89/48 L 99 02/23/19 02:15 84/52 L Weight Weight 144 lb 6.4 oz Most Recent Monitor Data Heart Rate from ECG 79 NIBP 100/50 NIBP BP-Mean 66 Respiration from ECG 14 SpO2 100 I&O: 02/22/19 02/23/19 02/24/19 06:59 06:59 06:59 Intake Total 1786 1480 Output Total 825 250 Balance 961 1230 Result Diagrams: 02/23/19 10:17 02/23/19 10:17 Additional Labs: Accuchecks 02/23/19 02/22/19 02/22/19 05:41 20:33 17:05 POC Glucose 85 166 H 187 H EKG Reviewed by me: Yes (Tele - SR) Hospitalist ROS - Medication Medications: Active Medications Generic Name Dose Route Start Last Admin Trade Name Freq PRN Reason Stop Dose Admin Albuterol/Ipratropium 3 ml 02/18/19 07:49 02/18/19 08:34 Duoneb NEB 3 ml [id number] PRN Administration SOB &/or Wheezing Aspirin 81 mg 02/18/19 09:00 02/23/19 09:03 Ecotrin PO 81 mg DAILY AVNI Administration Atorvastatin Calcium 20 mg 02/18/19 21:00 02/22/19 20:46 Lipitor PO 20 mg HS AVNI Administration Cefuroxime Axetil 250 mg 02/22/19 21:00 02/23/19 09:03 Ceftin PO 250 mg Q12HR AVNI Administration Ezetimibe 10 mg 02/18/19 09:00 02/23/19 09:03 Zetia PO 10 mg DAILY AVNI Administration Insulin Human Isoph/Insulin Regular 6 units 02/18/19 09:00 02/23/19 09:02 Humulin 70/30 SC 6 unit QAM AVNI Administration Insulin Human Isoph/Insulin Regular 10 units 02/18/19 21:00 02/22/19 20:47 Humulin 70/30 SC 10 unit HS AVNI Administration Insulin Human Lispro 0 units 02/18/19 07:37 02/22/19 18:05 Humalog SC 2 unit .MILD SLIDING SCALE PRN Administration Mild Correctional Scale Isosorbide Mononitrate 30 mg 02/18/19 09:00 02/23/19 09:03 Imdur Er PO 30 mg DAILY AVNI Administration Montelukast Sodium 10 mg 02/18/19 09:00 02/23/19 09:03 Singulair PO 10 mg DAILY AVNI Administration Morphine Sulfate 2 mg 02/22/19 11:02 02/22/19 11:05 Morphine SLOW IVP 2 mg Q2H PRN Administration PAIN (MODERATE TO SEVERE) Multivitamins 1 tab 02/18/19 09:00 02/23/19 09:03 Theragran PO 1 tab DAILY AVNI Administration Nystatin 500,000 units 02/21/19 15:00 02/23/19 09:03 Mycostatin SSW 500,000 units TID AVNI Administration Ondansetron HCl 4 mg 02/18/19 09:35 02/18/19 14:26 Zofran Odt PO 4 mg Q6H PRN Administration Nausea/Vomiting Oxybutynin Chloride 5 mg 02/18/19 09:00 02/23/19 09:03 Ditropan PO 5 mg BID AVNI Administration Pantoprazole Sodium 40 mg 02/18/19 21:00 02/22/19 20:47 Protonix PO 40 mg HS AVNI Administration Potassium Chloride 10 meq 02/22/19 08:00 02/23/19 09:02 Klor-Con 10 PO 10 meq QAM-WM AVNI Administration Ranolazine 500 mg 02/18/19 09:00 02/23/19 09:03 Ranexa PO 500 mg BID AVNI Administration Torsemide 20 mg 02/23/19 09:00 02/23/19 09:03 Demadex PO 20 mg DAILY AVNI Administration - Exam General Appearance: NAD, awake alert Eye: PERRL, anicteric sclera ENT: normocephalic atraumatic, no oropharyngeal lesions Neck: supple, symmetric, no JVD, no thyromegaly Heart: RRR, no gallops, no rubs, normal peripheral pulses Respiratory: CTAB, no wheezes, no rales, no tachypnea Gastrointestinal: soft, non-tender, non-distended, normal bowel sounds Extremities: no cyanosis, no clubbing, 1+ LE edema Skin: normal turgor, no lesions Neurological: cranial nerve grossly intact, no new deficit Musculoskeletal: normal tone, normal strength Psychiatric: normal affect, A&O x 3 Hosp A/P (1) Acute on chronic systolic (congestive) heart failure Code(s): I50.23 - ACUTE ON CHRONIC SYSTOLIC (CONGESTIVE) HEART FAILURE Status : Acute Plan: EF 25-30%, continue Torsemide, daily weights (2) Acute kidney failure Status: Acute Qualifiers: Acute renal failure type: unspecified Qualified Code(s): N17.9 - Acute kidney failure, unspecified Plan: Resolving, avoid nephrotoxic meds and limit contrast, serial creatinine (3) CAD (coronary artery disease) Code(s): I25.10 - ATHSCL HEART DISEASE OF [place] CORONARY ARTERY W/O ANG PCTRS Status: Chronic Qualifiers: Coronary Disease-Associated Artery/Lesion type: [place] artery [place] vs. transplanted heart: [place] heart Associated angina: with unstable angina Qualified Code(s): I25.110 - Atherosclerotic heart disease of [place] coronary artery with unstable angina pectoris Plan: Continue ASA, Lipitor, Imdur/Ranexa (4) Hyponatremia Code(s): E87.1 - HYPO-OSMOLALITY AND HYPONATREMIA Status: Acute Plan: Improved, continue volume mgmt, serial Na+ (5) NSTEMI (non-ST elevated myocardial infarction) Code(s): I21.4 - NON-ST ELEVATION (NSTEMI) MYOCARDIAL INFARCTION Status: Acute Plan: Medical mgmt, see above - Plan PT/OT, social work job titles, respiratory therapy, out of bed/ambulate, DVT proph w/ SCDs Stable currently Continue Torsemide 20mg daily Continue ASA/Lipitor/Nitrates/Ranexa OOB with PT for mobilization AM lab: H/H, creatinine q3 days Likely home in 24-48h
[2019-02-23] MEDS: Atorvastatin Calcium 20 MG TAB PO SCH (21:11)
[2019-02-24] MEDS: HumuLIN 70/30 (300 UNITS/3 ML VIAL) SC SCH ×2 (09:29→21:20)
[2019-02-24] MEDS: Aspirin 81 mg Enteric Coated Tablet PO SCH (09:31)
[2019-02-24] MEDS: Potassium Chloride 10 MEQ TAB PO SCH (09:31)
[2019-02-24] MEDS: Nystatin 500,000 UNITS/5 ML UDCUP SSW SCH ×3 (09:32→21:19)
[2019-02-24] MEDS: Ezetimibe 10 MG TAB PO SCH (09:32)
[2019-02-24] MEDS: Oxybutynin 5 MG TAB PO SCH ×2 (09:32→21:19)
[2019-02-24] MEDS: Montelukast Sodium 10 mg Tablet PO SCH (09:32)
[2019-02-24] MEDS: Isosorbide Mononitrate (ER) 30 MG TAB PO SCH (09:32)
[2019-02-24] MEDS: Cefuroxime Axetil 250 MG TAB PO SCH ×2 (09:32→21:19)
[2019-02-24] MEDS: Multivit, Therapeutic 1 TAB PO SCH (09:32)
[2019-02-24] MEDS: Torsemide 20 MG TAB PO SCH (09:32)
--- NOTE | 2019-02-24 12:54 | PDOC.HOSPP ---
- Subjective Encounter Date: 02/24/19 Encounter Time: 09:30 Subjective: no sob or chest pain says she is amb to restroom and back multiple family members in room didn't eat much of her breakfast this am - Objective Vital Signs & Weight: Vital Signs (12 hours) Temp Pulse Resp BP Pulse Ox 02/24/19 12:03 97.7 F 80 16 113/57 L 100 02/24/19 07:26 97.7 F 79 16 103/79 97 02/24/19 03:54 98.2 F 71 16 103/57 L 100 Weight Weight 142 lb 14.4 oz Most Recent Monitor Data Heart Rate from ECG 79 NIBP 100/50 NIBP BP-Mean 66 Respiration from ECG 14 SpO2 100 I&O: 02/23/19 02/24/19 02/25/19 06:59 06:59 06:59 Intake Total 1480 1110 Output Total 250 Balance 1230 1110 Result Diagrams: 02/23/19 10:17 02/23/19 10:17 Additional Labs: Accuchecks 02/24/19 02/24/19 02/23/19 12:09 05:48 20:26 POC Glucose 113 H 90 160 H 02/23/19 02/23/19 17:13 11:05 POC Glucose 129 H 132 H Hospitalist ROS - Medication Medications: Active Medications Generic Name Dose Route Start Last Admin Trade Name Freq PRN Reason Stop Dose Admin Albuterol/Ipratropium 3 ml 02/18/19 07:49 02/18/19 08:34 Duoneb NEB 3 ml [id number] PRN Administration SOB &/or Wheezing Aspirin 81 mg 02/18/19 09:00 02/24/19 09:31 Ecotrin PO 81 mg DAILY AVNI Administration Atorvastatin Calcium 20 mg 02/18/19 21:00 02/23/19 21:11 Lipitor PO 20 mg HS AVNI Administration Cefuroxime Axetil 250 mg 02/22/19 21:00 02/24/19 09:32 Ceftin PO 250 mg Q12HR AVNI Administration Ezetimibe 10 mg 02/18/19 09:00 02/24/19 09:32 Zetia PO 10 mg DAILY AVNI Administration Insulin Human Isoph/Insulin Regular 6 units 02/18/19 09:00 02/24/19 09:29 Humulin 70/30 SC 6 unit QAM AVNI Administration Insulin Human Isoph/Insulin Regular 10 units 02/18/19 21:00 02/23/19 21:11 Humulin 70/30 SC 10 unit HS AVNI Administration Insulin Human Lispro 0 units 02/18/19 07:37 02/22/19 18:05 Humalog SC 2 unit .MILD SLIDING SCALE PRN Administration Mild Correctional Scale Isosorbide Mononitrate 30 mg 02/18/19 09:00 02/24/19 09:32 Imdur Er PO 30 mg DAILY AVNI Administration Montelukast Sodium 10 mg 02/18/19 09:00 02/24/19 09:32 Singulair PO 10 mg DAILY AVNI Administration Morphine Sulfate 2 mg 02/22/19 11:02 02/22/19 11:05 Morphine SLOW IVP 2 mg Q2H PRN Administration PAIN (MODERATE TO SEVERE) Multivitamins 1 tab 02/18/19 09:00 02/24/19 09:32 Theragran PO 1 tab DAILY AVNI Administration Nystatin 500,000 units 02/21/19 15:00 02/24/19 09:32 Mycostatin SSW 500,000 units TID AVNI Administration Ondansetron HCl 4 mg 02/18/19 09:35 02/18/19 14:26 Zofran Odt PO 4 mg Q6H PRN Administration Nausea/Vomiting Oxybutynin Chloride 5 mg 02/18/19 09:00 02/24/19 09:32 Ditropan PO 5 mg BID AVNI Administration Pantoprazole Sodium 40 mg 02/18/19 21:00 02/23/19 21:11 Protonix PO 40 mg HS AVNI Administration Potassium Chloride 10 meq 02/22/19 08:00 02/24/19 09:31 Klor-Con 10 PO 10 meq QAM-WM AVNI Administration Ranolazine 500 mg 02/18/19 09:00 02/24/19 09:32 Ranexa PO 500 mg BID AVNI Administration Torsemide 20 mg 02/23/19 09:00 02/24/19 09:32 Demadex PO 20 mg DAILY AVNI Administration - Exam General Appearance: NAD, awake alert Eye: PERRL, anicteric sclera ENT: no oropharyngeal lesions, moist mucosa Neck: supple, no JVD Heart: RRR, no murmur Respiratory: no wheezes, no rales Gastrointestinal: soft, non-tender, non-distended, normal bowel sounds Extremities: no cyanosis, no edema Neurological: cranial nerve grossly intact, no focal deficits Psychiatric: normal affect, A&O x 3 Hosp A/P (1) Acute on chronic systolic (congestive) heart failure Code(s): I50.23 - ACUTE ON CHRONIC SYSTOLIC (CONGESTIVE) HEART FAILURE Status : Acute (2) PNA (pneumonia) Code(s): J18.9 - PNEUMONIA, UNSPECIFIED ORGANISM Status: Acute Qualifiers: Pneumonia type: due to unspecified organism (3) Hyponatremia Code(s): E87.1 - HYPO-OSMOLALITY AND HYPONATREMIA Status: Acute (4) Acute kidney failure Status: Acute Qualifiers: Acute renal failure type: unspecified Qualified Code(s): N17.9 - Acute kidney failure, unspecified (5) Chronic anemia Code(s): D64.9 - ANEMIA, UNSPECIFIED Status: Chronic (6) DM type 2 (diabetes mellitus, type 2) Status: Chronic Qualifiers: 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: with shelter use Diabetes mellitus complication status: with kidney complications Diabetes mellitus complication detail: with chronic kidney disease Chronic kidney disease stage : stage 2 (mild) Qualified Code(s): E11.22 - Type 2 diabetes mellitus with diabetic chronic kidney disease; N18.2 - Chronic kidney disease, stage 2 (mild) ; Z79.4 - intensive care unit nurse (current) use of insulin (7) Physical deconditioning Code(s): R53.81 - OTHER [place] Status: Acute (8) CAD (coronary artery disease) Code(s): I25.10 - ATHSCL HEART DISEASE OF [place] CORONARY ARTERY W/O ANG PCTRS Status: Chronic Qualifiers: Coronary Disease-Associated Artery/Lesion type: [place] artery [place] vs. transplanted heart: [place] heart Associated angina: without angina Qualified Code(s): I25.10 - Atherosclerotic heart disease of [place] coronary artery without angina pectoris - Plan hemostable has deconditioning, family and patient wanting to go to [facility] if approved prior to going home continue asp, lipitor, zetia, ceftin, imdur, ranexa, demadex, 70/30 insulin sbp holding up well this am to ambulate with PT as tolerated
[2019-02-24 14:09] LABS: Hemoglobin 10.6 g/dL (12.0-16.0); Platelet Count 174 thou/uL (130-400)
[2019-02-24] MEDS: Atorvastatin Calcium 20 MG TAB PO SCH (21:19)
[2019-02-25 03:58] VITALS: BP 90/52; TEMP 98.9
--- NOTE | 2019-02-26 15:33 | DIS ---
DATE OF ADMISSION: 02/18/2019 DATE OF DISCHARGE: 02/25/2019 SUMMARY DATE OF : 02/25/2019 at 6:40 a.m. PRIMARY CAUSE OF : CHF exacerbation with systolic dysfunction. The duration is eight days. Inoperable coronary artery disease, acute kidney injury, physical deconditioning. SECONDARY CAUSE OF : Diabetes mellitus, type 2 and anemia. BRIEF COURSE DURING HOSPITALIZATION: The patient initially came in with complaints of shortness of breath. She was recently discharged after being hospitalized for non-ST elevation [place] with severe inoperable coronary artery disease. The patient also has systolic dysfunction with ischemic cardiomyopathy and an ejection fraction of around 25% to 30%. She was gently diuresed during her stay here. The patient, in fact, was recovering well. On the , the patient tried to go to restroom and on the way back was exhausted. She went to the cardiac arrhythmia, likely torsade. The patient had an AICD, which promptly responded. Despite this, the patient went into cardiopulmonary arrest. She was a do not attempt to resuscitate. She was declared at 6:40 a.m. The body will be released to home per hospital protocol. Job ID: [id number]
--- NOTE | 2019-02-26 20:56 | PQF ---
BETH DONALD VINAYA KUMAR MD [id number] [facility]-[id number] CLINICAL DOCUMENTATION CLARIFICATION FORM: POST DISCHARGE Addendum to original discharge summary date: ____ Late entry note date: __ DATE: 02/26/19 ATTN: Anna Reis Please exercise your independent, professional judgment in responding to the clarification form. Clinical indicators are provided on the bottom of this form for your review Can you please further clarify the diagnosis of the patient based on the clinical inidcators below? Please check appropriate box(es): [ x] Sepsis due to: (Pna, UTI, gangrenous gall bladder, etc.) __pna [ ] Severe sepsis with acute organ dysfunction of: (Examples: respiratory failure, encephalopathy, acute kidney failure, other) [ ] Septic Shock [ ] Localized infection without sepsis [ ] Other diagnosis please specify [ ] Unable to determine In addition, please specify: Present on Admission (POA): [ x ] Yes [ ] No [ ] Unable to determine For continuity of documentation, please document condition throughout progress notes and discharge summary. Thank You. CLINICAL INDICATORS - SIGNS / SYMPTOMS / LABS Consult 02/19 Dr. Corral pg.1-she was suspected to have am infection and initiated on antibiotics Consult 02/19 Dr. Corral pg.1- central line was placed, she was initiated on Levophed Consult 02/19 Dr. Corral pg.3- Possible septic shock Consult 02/19 Dr. Corral pg.3- healthcare associated pneumonia, possible H and P pg.3- Hypertension with low blood pressure Hospitalist PN 02/18 pg.5 - Hypothermia Hospitalist PN 02/18 pg.5- Hypotension RISK FACTORS CAD-Consult 02/19 Dr. Corral pg.1 Hypertension-Consult 02/19 Dr. Corral pg.1 Dyslipidemia-Consult 02/19 Dr. Corral pg.1 Acute hypoxic respiratory failure- Consult 02/19 Dr. Corral pg.2 Pneumonia-Hospitalist PN 02/18 pg.5 TREATMENTS: Chest Xray 02/18 Pulmonary Consult- Dr. Corral IV fluids- MAY 30 IV Antibiotics- MAY 30 Levophed IV- MAY 30 (This form is maintained as a part of the permanent medical record) 2014 [employer] All Rights Reserved [email or web address] [not provided] MTDD
== END 2019-02-25 06:40 | disposition expired | DRG 871 ==
LOC: ERS 01:35 → 2SW 01:36 → OBSVTOIN 01:36 → CCU 11:56 → 2NO 02-22 19:10
PROVIDERS: ADMIT Internal Medicine; ATTEND Internal Medicine
PROC: 02HV33Z Insertion of Infusion Device into Superior Vena Cava, Percutaneous Approach (ICD-10-PCS; principal; 2019-02-18)
PROC: 3E043XZ Introduction of Vasopressor into Central Vein, Percutaneous Approach (ICD-10-PCS; 2019-02-18)
DX: A41.9 Sepsis, unspecified organism (principal); I21.4 Non-ST elevation (NSTEMI) myocardial infarction; J96.01 Acute respiratory failure with hypoxia; I50.23 Acute on chronic systolic (congestive) heart failure; J18.9 Pneumonia, unspecified organism; I13.0 Hypertensive heart and chronic kidney disease with heart failure and stage 1 through stage 4 chronic kidney disease, or unspecified chronic kidney disease; N17.9 Acute kidney failure, unspecified; E87.1 Hypo-osmolality and hyponatremia; I25.110 Atherosclerotic heart disease of native coronary artery with unstable angina pectoris; Z66 Do not resuscitate; Y95 Nosocomial condition; N18.2 Chronic kidney disease, stage 2 (mild); E11.22 Type 2 diabetes mellitus with diabetic chronic kidney disease; E11.65 Type 2 diabetes mellitus with hyperglycemia; E78.5 Hyperlipidemia, unspecified; I48.91 Unspecified atrial fibrillation; I25.5 Ischemic cardiomyopathy; I95.9 Hypotension, unspecified; T68.XXXA Hypothermia, initial encounter; E86.0 Dehydration; R53.81 Other malaise; I46.9 Cardiac arrest, cause unspecified; Z95.810 Presence of automatic (implantable) cardiac defibrillator; Z79.82 Long term (current) use of aspirin; Z79.01 Long term (current) use of anticoagulants; Z79.899 Other long term (current) drug therapy; Z95.1 Presence of aortocoronary bypass graft; Z79.4 Long term (current) use of insulin
CPT/HCPCS: 36415; 36416; 71045; 80048; 80053; 82533; 82553; 82565; 83605; 84436; 84443; 84484; 85014; 85018; 85025; 85049; 85610; 85730; 87040; 93005; 94640; 94760; J0456; J0696; J1815; J1940; J2270; J3490; J7050; J7070; J7620; P9047; Q0162